=== PATIENT | female | born 1960 | race American Indian/Alaskan Native ===

== ENCOUNTER 2017-07-22 09:27 | Outpatient (CLI) | payer MEDICARE ==
[2017-07-22 10:19] LABS: Albumin 3.3 g/dL (3.9-5); Calcium 9.2 mg/dL (8.4-10.2)
== END 2017-07-22 09:28 | disposition home or self-care (01) ==
LOC: LAB 09:27
DX: N18.4 Chronic kidney disease, stage 4 (severe) (principal)
CPT/HCPCS: 36415; 80048; 82040; 84100

== ENCOUNTER 2017-11-09 11:00 | Outpatient (CLI) | payer MEDICARE | END 2017-11-09 11:01 | disposition home or self-care (01) | LOC: SLR 11:00 | PROVIDERS: ATTEND Internal Medicine Cardiovascular Disease | DX: G47.33 Obstructive sleep apnea (adult) (pediatric) (principal) | CPT/HCPCS: 95810 ==

== ENCOUNTER 2017-11-23 11:00 | Outpatient (CLI) | payer MEDICARE | END 2017-11-23 11:01 | disposition home or self-care (01) | LOC: SLR 11:00 | PROVIDERS: ATTEND Otolaryngology | DX: G47.33 Obstructive sleep apnea (adult) (pediatric) (principal) | CPT/HCPCS: 95811 ==

== ENCOUNTER 2018-02-04 08:24 | Day surgery (SDC) | payer MEDICARE ==
[~2018-02-04 08:24] MED LIST: ANCEF/STERILE WATER 2 GM/20 ML 2 GM/20 ML SYRINGE IV NR; NACL 0.9% 1000 ML 1,000 ML IV SCH
[2018-02-04 09:17] LABS: Basophils # (Auto) 0.1 K/mm3 (0.0-0.1); Basophils % (Auto) 0.9 % (0.0-1.8); Eosinophils # (Auto) 0.4 K/mm3 (0.0-0.4); Hematocrit 25.4 % (30.3-42.9); Hemoglobin 7.6 gm/dl (10.1-14.3); Lymphocytes # (Auto) 2.5 K/mm3 (1.2-5.4); Lymphocytes % (Auto) 28.5 % (13.4-35.0); Mean Corpuscular HGB Conc 30 % (30-34); Mean Corpuscular Hemoglobin 22 pg (28-32); Mean Corpuscular Volume 74 fl (79-97); Monocytes # (Auto) 0.9 K/mm3 (0.0-0.8); Monocytes % (Auto) 10.2 % (0.0-7.3); Platelet Count 325 K/mm3 (140-440); Red Blood Count 3.43 M/mm3 (3.65-5.03); Red Cell Distribution Width 16.1 % (13.2-15.2)
[2018-02-04] MEDS ORDERED: SUBLIMAZE IV PRN (09:33)
[2018-02-04] MEDS ORDERED: ZOFRAN IV PRN (09:33)
--- NOTE | 2018-02-04 09:34 | Anesthesia Day of Surgery ---
Anesthesia Day of Surgery - Day of Surgery Patient Examined: Yes Patient H&P Reviewed: Yes Patient is NPO: Yes
--- NOTE | 2018-02-04 09:36 | Anesthesia Consultation ---
Anesthesia Consult and Med Hx Date of service: 02/04/18 - Airway Anesthetic Teeth Evaluation: Good ROM Head & Neck: Adequate Mental/Hyoid Distance: Adequate Mallampati Class: Class III Intubation Access Assessment: Probably Good - Pulmonary Exam CTA: Yes - Cardiac Exam Cardiac Exam: RRR - Pre-Operative Health Status ASA Pre-Surgery Classification: ASA3 Proposed Anesthetic Plan: General - Cardiovascular System Hx Hypertension: Yes Hx Coronary Artery Disease: No Hx Heart Attack/AMI: No - Central Nervous System Hx Psychiatric Problems: Yes (depression) - Endocrine Hx Renal Disease: Yes Hx End Stage Renal Disease: Yes Hx Cirrhosis: No Hx Liver Disease: Yes (Hepatitis C) - Other Systems Hx Cancer: No Hx Obesity: Yes
[2018-02-04 09:59] LABS: Calcium 8.7 mg/dL (8.4-10.2)
[2018-02-04] MEDS ORDERED: PAPAVERINE ONE (10:03)
[2018-02-04] MEDS ORDERED: PROTAMINE SULFATE ONE (10:03)
[2018-02-04] MEDS ORDERED: MARCAINE 0.5% 30 ML INFILTRATI ONE (10:03)
[2018-02-04] MEDS ORDERED: NACL 0.9% 500 ML 500 ML ONE (10:04)
[2018-02-04] MEDS ORDERED: NITROGLYCERIN SYRINGE 0 ML ONE (10:04)
[2018-02-04] MEDS ORDERED: THROMBIN (BOVINE) TP ONE (10:04)
[2018-02-04] MEDS ORDERED: HEPARIN 10,000 UNITS/10 ML ONE (10:04)
[2018-02-04] MEDS ORDERED: GELFOAM TP ONE (10:04)
[2018-02-04] MEDS ORDERED: XYLOCAINE MPF 2% ONE (10:13)
[2018-02-04] MEDS ORDERED: SUBLIMAZE ONE (10:13)
[2018-02-04] MEDS ORDERED: DIPRIVAN 10 MG/ML IV ONE (10:13)
[2018-02-04] MEDS ORDERED: ZOFRAN ONE (10:15)
[2018-02-04] MEDS ORDERED: MARCAINE-EPI 0.5%-1:200,000 INFILTRATI ONE ×2 (12:42→12:43)
[2018-02-04] MEDS ORDERED: NACL 0.9% 250ML IRRIGATION ONE (12:42)
[2018-02-04] MEDS ORDERED: NACL 0.9% IR ONE (12:42)
[2018-02-04] MEDS ORDERED: HEPARIN 10,000 UNITS/10 ML IV ONE (12:42)
[2018-02-04] MEDS ORDERED: NITROGLYCERIN SYRINGE UD ONE (12:42)
--- NOTE | 2018-02-04 13:21 | Short Stay Summary ---
Short Stay Documentation Date of service: 02/04/18 - History H&P: obtained from office (short stay H&P) - Allergies and Medications Current Medications: Allergies No Known Allergies Allergy (Verified 01/27/18 16:41) Home Medications Medication Instructions Recorded Confirmed Last Taken Type Carvedilol [Coreg] 25 mg PO BID #60 tablet 01/31/18 02/04/18 02/03/18 Rx amLODIPine [Norvasc] 10 mg PO QDAY #30 tablet 01/31/18 02/04/18 02/03/18 Rx hydrALAZINE [Apresoline TAB] 50 mg PO Q8HR #180 tablet 01/31/18 02/04/18 Rx Allopurinol 100 mg PO DAILY 02/04/18 02/04/18 02/03/18 History Vortioxetine Hydrobromide 20 mg PO DAILY 02/04/18 02/04/18 02/03/18 History [Trintellix] buPROPion 450 mg PO DAILY 02/04/18 02/04/18 02/03/18 History Active Medications Fentanyl (Sublimaze) 50 mcg IV Q5MIN PRN PRN Reason: Pain , Severe (7-10) Cefazolin Sodium (Ancef/Sterile Water 2 Gm/20 Ml) 2 gm in 20 mls @ 80 mls/hr IV PREOP NR; Protocol Stop: 02/04/18 23:01 Sodium Chloride (Nacl 0.9% 1000 Ml) 1,000 mls @ 42 mls/hr IV DIRECT [place] Last Admin: 02/04/18 09:00 Dose: 42 mls/hr Ondansetron HCl (Zofran) 4 mg IV ONCE PRN PRN Reason: Nausea And Vomiting - Brief post op/procedure progress note Date of procedure: 02/04/18 Pre-op diagnosis: ESRD Post-op diagnosis: same Procedure: LUE antecubital vein to brachial artery fistula by direct anastomosis Anesthesia: GETA, regional (1/2% MArcaine w epi) Findings: Good thrill at end of case, easily palpable left radial pulse Surgeon: MARTHA NIÑO Estimated blood loss: minimal Pathology: none Condition: stable - Hospital course Hospital course: benign Short Stay Discharge Plan Activity: advance as tolerated Diet: advance as tolerated Follow up with: MARTHA NIÑO MD [Staff Physician] - 14 Days Prescriptions: HYDROcodone/APAP 5-325 [[place] 5/325] 1 each PO Q6HR PRN #30 tablet PRN Reason: Pain
--- NOTE | 2018-02-04 13:27 | Operative Report ---
Operative Report Operative Report: Date of procedure: 02/04/2018 Pre-operative diagnosis: End-stage renal failure Post-operative diagnosis: Same Procedure name(s): Antecubital vein to brachial artery fistula at the level of the elbow in the left upper extremity by direct anastomosis Surgeon: David Tate MD Storage Battery Inspector And Tester: None Anesthesia: Gen. and local supplementation using half percent Marcaine with epinephrine EBL: Less than 50 mL Operative indication: Patient is a 57 year old woman with a history of end- stage renal failure. The patient presents for establishment of long-term hemodialysis access. Findings: Excellent thrill in the arteriovenous fistula at the end of the procedure. Easily palpable radial pulse distal to the anastomosis. Procedure: The patient was placed on the table in the supine position. The left arm was prepped with ChloraPrep solution and draped in the usual sterile fashion. The ultrasound was used to identify the venous anatomy of the upper arm after a tourniquet had been placed in the upper arm using a rubber glove. The cephalic vein was very small around the area of the antecubital fossa. The basilic vein was also small in that area. The brachial artery size was adequate. There were several veins in the area of the brachial artery just below the elbow which appeared to be the origin of superficial veins. Under local anesthesia, an incision was made just below the elbow. Dissection was carried out to identify the brachial artery and adjacent vein. The vein gave rise to multiple veins in the area which appeared to go superficially. For the lateral side the vein coursed up into the subcutaneous tissue to what appeared to be an antebrachial vein. The vein heading proximally appeared to go toward the brachial vein. There also appeared to be some branches in the direction of the basilic vein. The brachial artery was surrounded with a vessel loop as was the proximal radial artery and the ulnar artery. The vein was freed up so that the only outflow was toward the antebrachial vein distally and toward the basilar vein proximally. The brachial artery and other arteries were occluded using vessel loops. A long arteriotomy was made on the proximal radial artery which went just onto the brachial artery for about a millimeter or 2. The corresponding incision was made on the vein of appropriate length. The vein was then sewn into place using running 7-0 Prolene. I put nitroglycerin side of vein to dwell while the anastomosis was being created. The 2 Nii catheter was used to relieve the spasm in the arteries prior to confucianist of flow. The anastomosis was occluded after flushing the vessels. Flow started into the vein with the development of an excellent thrill over the proximal forearm and the proximal upper arm. Meticulous hemostasis was obtained. Hemostasis was obtained. The wound was infiltrated with half percent Marcaine and epinephrine. Closure was done with 3-0 Vicryl and 4-0 subcuticular PDS. Dermabond was placed. The patient tolerated the procedure well. There was an easily palpable left radial pulse at the end of the procedure. There was a good thrill in the fistula at the end of the procedure. Sponge, needle, and instrument counts were reported as correct.
[2018-02-04 16:24] VITALS: BP 115/64
== END 2018-02-04 16:55 | disposition home or self-care (01) ==
LOC: OR 08:24
PROVIDERS: ATTEND Surgery Vascular Surgery
DX: I12.0 Hypertensive chronic kidney disease with stage 5 chronic kidney disease or end stage renal disease (principal); N18.6 End stage renal disease; M10.9 Gout, unspecified; E66.9 Obesity, unspecified; Z68.41 Body mass index [BMI] 40.0-44.9, adult; Z79.899 Other long term (current) drug therapy; Z99.2 Dependence on renal dialysis; Z87.891 Personal history of nicotine dependence; Z98.890 Other specified postprocedural states
CPT/HCPCS: 36415; 36821; 80048; 85025; A4649; C1757; J0690; J1644; J2405; J2704; J3010; J7030; J7040; J7050; J2440; J2720

== ENCOUNTER 2018-04-01 10:41 | Outpatient (CLI) | payer MEDICARE ==
--- NOTE | 2018-04-05 14:23 | Vascular Lab Report ---
Arteriovenous access duplex Reason for exam: Failing arterial venous access Comments: There is an arteriovenous fistula in the left upper extremity. It involves the brachial vein at the elbow and the nearby adjacent veins. There is flow into the brachial and axillary veins. Neither the basilic or cephalic vein appears to contain arterial flow. Flow velocities are as expected. Flow velocities in the brachial vein consistent with a volume flow over 1000 mL per minute. Impression: Patent brachial artery to brachial vein fistula in the left upper extremity. Majority outflow appears to be to the brachial vein. Neither the basilic or cephalic vein appeared to contain arterial flow.
== END 2018-04-01 10:42 | disposition home or self-care (01) ==
LOC: FLUORO 10:41 → VAS 10:41
PROVIDERS: ATTEND Surgery Vascular Surgery
DX: I77.0 Arteriovenous fistula, acquired (principal); I12.0 Hypertensive chronic kidney disease with stage 5 chronic kidney disease or end stage renal disease; N18.6 End stage renal disease; Z87.891 Personal history of nicotine dependence
CPT/HCPCS: 93990

== ENCOUNTER 2018-09-09 07:18 | Day surgery (SDC) | payer MEDICARE ==
[2018-09-09 08:43] LABS: Calcium 8.4 mg/dL (8.4-10.2)
[2018-09-09] MEDS ORDERED: HEPARIN/NS 5000 UNIT/500ML(CATH LAB) 500 ML IR ONE (09:57)
[2018-09-09] MEDS ORDERED: NACL 0.9% 250ML 250 ML ONE (09:59)
[2018-09-09] MEDS ORDERED: ANCEF/STERILE WATER 2 GM/20 ML 2 GM/20 ML SYRINGE IV ONE (10:07)
[2018-09-09] MEDS: SUBLIMAZE ONE ×2 (10:18→10:26)
[2018-09-09] MEDS: VERSED ONE ×2 (10:18→10:26)
[2018-09-09] MEDS: XYLOCAINE 1% 20 mL ONE ×2 (10:19→10:38)
[2018-09-09] MEDS ORDERED: VERSED ONE (10:34)
[2018-09-09] MEDS ORDERED: SUBLIMAZE ONE (10:34)
[2018-09-09] MEDS: HEPARIN 10,000 UNITS/10 ML ONE ×2 (10:35→10:36)
--- NOTE | 2018-09-09 10:57 | Operative Report ---
Operative Report Operative Report: Operative note: Date: 09/09/2018 Preoperative diagnosis: Renal failure Postoperative diagnosis: Same. Operation: Right internal jugular PermCath insertion Surgeon: Judith Quiroz. Asst.: None Anesthesia: Local with moderate sedation EBL: Minimal Indications: Renal failure requiring dialysis. She had infiltration during hemodialysis left arm AV fistula and to rest the permanent access placement of PermCath was necessary. Patient was discussed risks and benefits of procedure and chose to proceed, signed informed consent. Operative details: Patient was brought to the operating room and placed in supine position. Her right neck was prepped and draped in sterile fashion. Timeout was performed and all team members in agreement. Under ultrasound guidance right IJ was accessed with micropuncture needle, and exchanged to micropuncture catheter. J-wire was inserted under fluoroscopy guidance to SVC proximally. Small min was created with 11 blade around the wire and at the intended exit site for the catheter after infiltrating with 1% lidocaine. Intended tunnel for the catheter was also infiltrated with lidocaine. A clamp was used to dilate tract at the incisions. 23 cm PermCath catheter was tunneled toward the access site positioning the cuff just inside the exit incision. We dilated the access IJ site with 8 Ivorian and 12 Ivorian dilators followed by the peel-away sheath. Wire and the introducer were removed and catheter was inserted in the peel-away sheath which was removed keeping the catheter in place. Fluoroscopy pictures showed good positioning with smooth turn over the catheter. Ports were flushed with heparinized saline and showed good flow followed by full strength heparin lock with 1.8 mL in each port. Patient tolerated procedure well. The was transferred to PACU in stable condition.
--- NOTE | 2018-09-09 11:02 | Short Stay Summary ---
Short Stay Documentation Date of service: 09/09/18 - History H&P: obtained from office (updated in chart) Past Medical History: hypertension, renal failure Past Surgical History: Other (left arm AV fistula) - Allergies and Medications Current Medications: Allergies No Known Allergies Allergy (Verified 05/18/18 18:12) Home Medications Medication Instructions Recorded Confirmed Last Taken Type Carvedilol [Coreg] 25 mg PO BID #60 tablet 01/31/18 09/09/18 09/09/18 Rx 25mg amLODIPine [Norvasc] 10 mg PO QDAY #30 tablet 01/31/18 09/09/18 09/09/18 Rx 10mg Allopurinol 100 mg PO DAILY 02/04/18 09/09/18 09/09/18 History 100mg buPROPion 450 mg PO DAILY 02/04/18 09/09/18 09/09/18 History 450mg Losartan 50 mg PO DAILY PRN 05/20/18 09/09/18 09/09/18 History 50mg Pantoprazole [Protonix TAB] 40 mg PO QDAY 05/20/18 09/09/18 09/09/18 History 40mg Brimonidine/Timolol 0.2-0.5% 2 drops OU QHS 09/09/18 09/09/18 09/08/18 History [Combigan 0.2-0.5%] 2 Calcitriol [Rocaltrol] 0.25 mcg PO DAILY 09/09/18 09/09/18 09/08/18 History 0.25mcg Latanoprost 0.005% 2 drops OU QHS 09/09/18 09/09/18 09/08/18 History 2 cloNIDine [Catapres] 0.1 mg PO DAILY 09/09/18 09/09/18 09/09/18 History 0.1mg Active Medications Cefazolin Sodium (Ancef/Sterile Water 2 Gm/20 Ml) 2 gm in 20 mls @ 80 mls/hr IV PREOP NR; Protocol Stop: 09/09/18 23:00 Sodium Chloride (Nacl 0.9% 1000 Ml) 1,000 mls @ 42 mls/hr IV DIRECT [place] - Brief post op/procedure progress note Date of procedure: 09/09/18 Pre-op diagnosis: left arm AV fistula infiltration, end-stage renal disease Post-op diagnosis: same Procedure: Right IJ PermCath placement Anesthesia: MAC Findings: At the end of procedure tip of the catheter was at the SVC atrial junction. Surgeon: WESLEY DIAZ Estimated blood loss: minimal Condition: stable - Disposition Condition at discharge: Good Disposition: DC-01 TO HOME OR SELFCARE Short Stay Discharge Plan Diet: renal Wound: keep clean and dry Follow up with: NEIL PRO DO [Primary Care Provider] - 7 Days MARTHA NIÑO MD [Staff Physician] - 14 Days Prescriptions: HYDROcodone/APAP 5-325 [[place] 5/325] 1 each PO Q6HR PRN #14 tablet PRN Reason: Pain
[2018-09-09 11:38] VITALS: BP 161/76
== END 2018-09-09 12:32 | disposition home or self-care (01) ==
LOC: CATHLABREC 07:18
PROVIDERS: ATTEND Surgery Vascular Surgery
DX: I12.0 Hypertensive chronic kidney disease with stage 5 chronic kidney disease or end stage renal disease (principal); N18.6 End stage renal disease; K21.9 Gastro-esophageal reflux disease without esophagitis; F32.9 Major depressive disorder, single episode, unspecified; E66.9 Obesity, unspecified; Z68.37 Body mass index [BMI] 37.0-37.9, adult; Z99.2 Dependence on renal dialysis; Z79.899 Other long term (current) drug therapy; Z79.01 Long term (current) use of anticoagulants; Z87.891 Personal history of nicotine dependence; Z98.49 Cataract extraction status, unspecified eye; Z98.890 Other specified postprocedural states; Z86.2 Personal history of diseases of the blood and blood-forming organs and certain disorders involving the immune mechanism
CPT/HCPCS: 36415; 36558; 77001; 80048; 99156; 99157; C1750; J0690; J1644; J2250; J3010; J7050

== ENCOUNTER 2018-09-15 11:19 | Inpatient (IN) | payer MEDICARE ==
--- NOTE | 2018-09-15 11:30 | Emergency Department Report ---
Blank Doc - Documentation Documentation: This is a 58-year-old female that presents with missing dialysis x1 week. Den ies any symptoms. This initial assessment/diagnostic orders/clinical plan/treatment(s) is/are subject to change based on patient's health status, clinical progression and re- assessment by fellow clinical providers in the ED. Further treatment and workup at subsequent clinical providers discretion. Patient/guardians urged not to elope from the ED as their condition may be serious if not clinically assessed and managed. Initial orders include: 1- Patient sent to [facility] for further evaluation and treatment 2- labs
[2018-09-15 11:41] LABS: Basophils # (Auto) 0.1 K/mm3 (0.0-0.1); Eosinophils # (Auto) 0.3 K/mm3 (0.0-0.4); Eosinophils % (Auto) 3.4 % (0.0-4.3); Hematocrit 32.2 % (30.3-42.9); Lymphocytes # (Auto) 1.9 K/mm3 (1.2-5.4); Lymphocytes % (Auto) 25.3 % (13.4-35.0); Mean Corpuscular HGB Conc 31 % (30-34); Mean Corpuscular Volume 78 fl (79-97); Monocytes # (Auto) 0.7 K/mm3 (0.0-0.8); Monocytes % (Auto) 9.1 % (0.0-7.3); Platelet Count 319 K/mm3 (140-440); Red Blood Count 4.13 M/mm3 (3.65-5.03); Red Cell Distribution Width 16.5 % (13.2-15.2)
[2018-09-15 12:04] LABS: Alanine Aminotransferase 5 units/L (7-56); Albumin 3.9 g/dL (3.9-5); BUN/Creatinine Ratio 11; Blood Urea Nitrogen 71 mg/dL (7-17); Calcium 8.3 mg/dL (8.4-10.2); Hemolysis Index 2
[2018-09-15 12:05] LABS: Bilirubin,Direct < 0.2 mg/dL (0-0.2)
--- NOTE | 2018-09-15 12:19 | Emergency Department Report ---
ED General Adult HPI - General Chief complaint: Recheck/Abnormal Lab/Rx Stated complaint: DIALYSIS/POTASSIUM LEVEL Time Seen by Provider: 09/15/18 11:29 Source: patient Mode of arrival: Ambulatory Limitations: No Limitations - History of Present Illness Initial comments: Mrs. Barber is a very pleasant 4-year-old female with history of end-stage renal disease on dialysis. She has not had dialysis in one week since September 08 due to depression. She takes medication for depression. Mentally, she feels better at this time. She denies suicidal homicidal ideation. She was evaluated at dialysis Center today. She was sent to the ED for evaluation prior to resuming dialysis. Her general repairer is Dr. Perdomo. She denies chest pain. She denies Shortness of breath. She denies any physical complaints. She is in her normal state of health. -: week(s) (1) Severity scale (0 -10): 0 Improves with: none Worsens with: none Associated Symptoms: other (depression) - Related Data Home Medications Medication Instructions Recorded Confirmed Last Taken Allopurinol 100 mg PO DAILY 02/04/18 09/09/18 09/09/18 100mg buPROPion 450 mg PO DAILY 02/04/18 09/09/18 09/09/18 450mg Losartan 50 mg PO DAILY PRN 05/20/18 09/09/18 09/09/18 50mg Pantoprazole [Protonix TAB] 40 mg PO QDAY 05/20/18 09/09/18 09/09/18 40mg Brimonidine/Timolol 0.2-0.5% 2 drops OU QHS 09/09/18 09/09/18 09/08/18 [Combigan 0.2-0.5%] 2 Calcitriol [Rocaltrol] 0.25 mcg PO DAILY 09/09/18 09/09/18 09/08/18 0.25mcg Latanoprost 0.005% 2 drops OU QHS 09/09/18 09/09/18 09/08/18 2 cloNIDine [Catapres] 0.1 mg PO DAILY 09/09/18 09/09/18 09/09/18 0.1mg Previous Rx's Medication Instructions Recorded Last Taken Type Carvedilol [Coreg] 25 mg PO BID #60 tablet 01/31/18 09/09/18 Rx 25mg amLODIPine [Norvasc] 10 mg PO QDAY #30 tablet 01/31/18 09/09/18 Rx 10mg HYDROcodone/APAP 5-325 [[place] 1 each PO Q6HR PRN #14 tablet 09/09/18 Unknown Rx 5/325] Allergies Allergy/AdvReac Type Severity Reaction Status Date / Time No Known Allergies Allergy Verified 05/18/18 18:12 ED Review of Systems ROS: Stated complaint: DIALYSIS/POTASSIUM LEVEL Other details as noted in HPI Comment: All other systems reviewed and negative Constitutional: denies: fever, malaise Cardiovascular: denies: chest pain ED Past Medical Hx - Past Medical History Hx Hypertension: Yes (started losartan today; BP 90s/60s initially in preop) Hx Heart Attack/AMI: No Hx Liver Disease: Yes (HCV) Hx Renal Disease: Yes (HD T,,Wednesday) Hx Seizures: No Hx Asthma: No Additional medical history: depression - Surgical History Additional Surgical History: JAYY graft, Rt Vascath - Social History Smoking Status: Never Smoker Substance Use Type: None - Medications Home Medications: Home Medications Medication Instructions Recorded Confirmed Last Taken Type Carvedilol [Coreg] 25 mg PO BID #60 tablet 01/31/18 09/09/18 09/09/18 Rx 25mg amLODIPine [Norvasc] 10 mg PO QDAY #30 tablet 01/31/18 09/09/18 09/09/18 Rx 10mg Allopurinol 100 mg PO DAILY 02/04/18 09/09/18 09/09/18 History 100mg buPROPion 450 mg PO DAILY 02/04/18 09/09/18 09/09/18 History 450mg Losartan 50 mg PO DAILY PRN 05/20/18 09/09/18 09/09/18 History 50mg Pantoprazole [Protonix TAB] 40 mg PO QDAY 05/20/18 09/09/18 09/09/18 History 40mg Brimonidine/Timolol 0.2-0.5% 2 drops OU QHS 09/09/18 09/09/18 09/08/18 History [Combigan 0.2-0.5%] 2 Calcitriol [Rocaltrol] 0.25 mcg PO DAILY 09/09/18 09/09/18 09/08/18 History 0.25mcg HYDROcodone/APAP 5-325 [[place] 1 each PO Q6HR PRN #14 tablet 09/09/18 Unknown Rx 5/325] Latanoprost 0.005% 2 drops OU QHS 09/09/18 09/09/18 09/08/18 History 2 cloNIDine [Catapres] 0.1 mg PO DAILY 09/09/18 09/09/18 09/09/18 History 0.1mg ED Physical Exam - General Limitations: No Limitations General appearance: alert, in no apparent distress - Head Head exam: Present: atraumatic, normocephalic - Eye Eye exam: Present: normal appearance - ENT ENT exam: Present: mucous membranes moist - Neck Neck exam: Present: normal inspection, full ROM - Respiratory Respiratory exam: Present: normal lung sounds bilaterally. Absent: respiratory distress, wheezes, rales, rhonchi - Cardiovascular Cardiovascular Exam: Present: regular rate, normal rhythm, normal heart sounds, other (right chest vascath in place). Absent: systolic murmur, diastolic m urmur, rubs, gallop - GI/Abdominal GI/Abdominal exam: Present: soft, normal bowel sounds. Absent: distended, tenderness, guarding, rebound - Extremities Exam Extremities exam: Present: normal inspection - Back Exam Back exam: Present: normal inspection - Neurological Exam Neurological exam: Present: alert, oriented X3 - Psychiatric Psychiatric exam: Present: normal affect, normal mood - Skin Skin exam: Present: warm, dry, intact, normal color. Absent: rash ED Course Vital Signs 09/15/18 09/15/18 11:29 12:31 Temperature 98 F Pulse Rate 96 H 83 Respiratory 18 17 Rate Blood Pressure 190/94 Blood Pressure 133/78 [Right] O2 Sat by Pulse 97 100 Oximetry ED Medical Decision Making - Lab Data Result diagrams: 09/15/18 11:32 09/15/18 11:32 Laboratory Results - last 24 hr 09/15/18 09/15/18 11:32 11:32 WBC 7.6 RBC 4.13 Hgb 10.0 L Hct 32.2 MCV 78 L MCH 24 L MCHC 31 RDW 16.5 H Plt Count 319 Lymph % (Auto) 25.3 Bland % (Auto) 9.1 H Eos % (Auto) 3.4 Baso % (Auto) 1.0 Lymph # 1.9 Bland # 0.7 Eos # 0.3 Baso # 0.1 Seg Neutrophils % 61.2 Seg Neutrophils # 4.6 Sodium 133 L Potassium 5.9 H Chloride 106.2 Carbon Dioxide 17 L Anion Gap 16 BUN 71 H Creatinine 6.7 H Estimated GFR 8 BUN/Creatinine Ratio 11 Glucose 107 H Calcium 8.3 L Total Bilirubin 0.30 Direct Bilirubin < 0.2 AST 15 ALT 5 L Alkaline Phosphatase 76 Total Protein 7.1 Albumin 3.9 Albumin/Globulin Ratio 1.2 - EKG Data 09/15/18 12:50 EKG obtained 1245 Rate 80 beats a minute normal sinus rhythm normal axis normal intervals no signs of hyperkalemia normal amplitude T waves normal QT interval - Medical Decision Making Mrs. Barber has hx of ESRD on HD. She was sent for evaluation to ED. Notable lab potassium 5.9. She is symptom free. Elevated BP noted, I spoke with Nephrology specialist [employer] Moon who arranged urgent dialysis orders. Dr. Howell hospitalist will admit for further monitoring and treatment. Critical care attestation.: If time is entered above; I have spent that time in minutes in the direct care of this critically ill patient, excluding procedure time. ED Disposition Clinical Impression: ESRD (end stage renal disease), Missed dialysis, Hypertensive urgency Disposition: 09 OP ADMIT IP TO THIS HOSP Is pt being admited?: Yes Does the pt Need Aspirin: No Condition: Stable
[2018-09-15 13:11] LABS: Bilirubin,Urine NEG (Negative); Blood,Urine NEG (Negative); Color,Urine Yellow (Yellow); Mucus,Urine FEW /HPF; Urobilinogen,Urine < 2.0 mg/dL (<2.0)
[2018-09-15 13:12] LABS: Protein,Urine >500 mg/dL (Negative)
[2018-09-15] MEDS ORDERED: ZOFRAN IV PRN (13:26)
[2018-09-15] MEDS ORDERED: PROVENTIL IH PRN (13:26)
[2018-09-15] MEDS ORDERED: SODIUM CHLORIDE FLUSH SYRINGE 10 ML IV PRN (13:26)
[2018-09-15] MEDS ORDERED: TYLENOL PO PRN (13:26)
[2018-09-15] MEDS ORDERED: NORCO 5/325 PO PRN (13:28)
[2018-09-15] MEDS ORDERED: NON-FORMULARY (Losartan 50 MG) PO PRN (13:28)
[2018-09-15] MEDS ORDERED: NACL 0.9% 100 ML IV PRN ×2 (13:31→13:38)
--- NOTE | 2018-09-15 13:32 | History and Physical Report ---
History of Present Illness Chief complaint: I need dialysis History of present illness: 58 YO Female with ESRD on HD(T,R,Sa), HTN, Depression, HCV presents to ED for evaluation. Pt states that she has not undergone her scheduled for the past 1 week. Pt has been noncompliant with dialysis due to feeling depressed. Pt presented to her dialysis center for routine dialysis, and was instructed to seek further care at [facility]. Pt seen and evaluated in ED and found to have ESRD, Acidosis and Fluid Overload. Nephrology consulted for urgent dialysis. Pt denies fever, chills, CP, Palpitations, NVD, Trauma, SI/HI, BRBPR, Unintentional Weight loss, night sweats, or recent ill contacts. Pt admitted to medical floor. Prior admission on 01/28/18 reviewed. All listed medication reconciled at time of admission. Past History Past Medical History: ESRD, hepatitis, hypertension Past Surgical History: Other (Dialysis access, permacath) Social history: . denies: smoking, alcohol abuse, prescription drug abuse Family history: hypertension Medications and Allergies Allergies Allergy/AdvReac Type Severity Reaction Status Date / Time No Known Allergies Allergy Verified 05/18/18 18:12 Home Medications Medication Instructions Recorded Confirmed Last Taken Type Carvedilol [Coreg] 25 mg PO BID #60 tablet 01/31/18 09/09/18 09/09/18 Rx 25mg amLODIPine [Norvasc] 10 mg PO QDAY #30 tablet 01/31/18 09/09/18 09/09/18 Rx 10mg Allopurinol 100 mg PO DAILY 02/04/18 09/09/18 09/09/18 History 100mg buPROPion 450 mg PO DAILY 02/04/18 09/09/18 09/09/18 History 450mg Losartan 50 mg PO DAILY PRN 05/20/18 09/09/18 09/09/18 History 50mg Pantoprazole [Protonix TAB] 40 mg PO QDAY 05/20/18 09/09/18 09/09/18 History 40mg Brimonidine/Timolol 0.2-0.5% 2 drops OU QHS 09/09/18 09/09/18 09/08/18 History [Combigan 0.2-0.5%] 2 Calcitriol [Rocaltrol] 0.25 mcg PO DAILY 03/09/09/18 09/08/18 History 0.25mcg HYDROcodone/APAP 5-325 [[place] 1 each PO Q6HR PRN #14 tablet 09/09/18 Unknown Rx 5/325] Latanoprost 0.005% 2 drops OU QHS 09/09/18 09/09/18 09/08/18 History 2 cloNIDine [Catapres] 0.1 mg PO DAILY 09/09/18 09/09/18 09/09/18 History 0.1mg Active Meds: Active Medications Acetaminophen (Tylenol) 650 mg PO Q4H PRN PRN Reason: Pain MILD(1-3)/Fever >100.5/DERAS Albuterol (Proventil) 2.5 mg IH Q4HRT PRN PRN Reason: Shortness Of Breath Ondansetron HCl (Zofran) 4 mg IV Q8H PRN PRN Reason: Nausea And Vomiting Sodium Chloride (Sodium Chloride Flush Syringe 10 Ml) 10 ml IV BID [place] Sodium Chloride (Sodium Chloride Flush Syringe 10 Ml) 10 ml IV PRN PRN PRN Reason: LINE FLUSH Review of Systems Constitutional: no weight loss, no weight gain, no fever, no chills Ears, nose, mouth and throat: no ear pain, no ear discharge, no tinnitis, no decreased hearing, no nose pain, no nasal congestion Breasts: no change in shape, no swelling, no mass Cardiovascular: no chest pain, no orthopnea, no palpitations, no rapid/irregular heart beat, no edema, no syncope Respiratory: no cough, no cough with sputum, no excessive sputum, no hemoptysis, no shortness of breath Gastrointestinal: no nausea, no vomiting, no diarrhea, no constipation, no change in bowel habits Genitourinary Female: no pelvic pain, no flank pain, no menorrhagia, no dysuria, no urinary frequency, no urgency, no stress incontinence Rectal: no pain, no incontinence, no bleeding Musculoskeletal: no neck stiffness, no neck pain, no shooting arm pain, no arm numbness/tingling, no low back pain, no shooting leg pain Integumentary: no rash, no pruritis, no redness, no sores, no wounds, no jaundice Neurological: no transient paralysis, no paralysis, no weakness, no parathesias, no numbness, no tingling, no seizures Psychiatric: no anxiety, no memory loss, no change in sleep habits, no sleep disturbances, no insomnia, no hypersomnia, no change in appetite Endocrine: no cold intolerance, no heat intolerance, no polyphagia, no excessive thirst, no polydipsia, no polyuria, no nocturia Hematologic/Lymphatic: no easy bruising, no easy bleeding, no lymphadenopathy, no lymphedema Allergic/Immunologic: no urticaria, no allergic rhinitis, no wheezing, no persistent infections, no anaphylaxis Exam - Constitutional Vitals: Temp Pulse Resp BP Pulse Ox 98 F 83 17 133/78 100 09/15/18 11:29 09/15/18 12:31 09/15/18 12:31 09/15/18 12:31 09/15/18 12:31 General appearance: Present: mild distress, obese - EENT Eyes: Present: PERRL ENT: hearing intact, clear oral mucosa - Neck Neck: Present: supple, normal ROM - Respiratory Respiratory effort: normal Respiratory: bilateral: CTA - Cardiovascular Heart Sounds: Present: S1 & S2. Absent: rub, click - Extremities Extremities: pulses symmetrical, No edema Peripheral Pulses: within normal limits - Abdominal General gastrointestinal: Present: soft, non-tender, non-distended, normal bowel sounds Female genitourinary: Present: normal - Integumentary Integumentary: Present: clear, warm, dry - Musculoskeletal Musculoskeletal: gait normal, strength equal bilaterally - Psychiatric Psychiatric: appropriate mood/affect, intact judgment & insight - Neurologic Neurologic: CNII-XII intact, moves all extremities Results - Labs CBC & Chem 7: 09/15/18 11:32 09/15/18 11:32 Labs: Abnormal lab results 09/15/18 09/15/18 Range/Units 11:32 11:32 Hgb 10.0 L (10.1-14.3) gm/dl MCV 78 L (79-97) fl MCH 24 L (28-32) pg RDW 16.5 H (13.2-15.2) % Real % (Auto) 9.1 H (0.0-7.3) % Sodium 133 L (137-145) mmol/L Potassium 5.9 H (3.6-5.0) mmol/L Carbon Dioxide 17 L (22-30) mmol/L BUN 71 H (7-17) mg/dL Creatinine 6.7 H (0.7-1.2) mg/dL Glucose 107 H (65-100) mg/dL Calcium 8.3 L (8.4-10.2) mg/dL ALT 5 L (7-56) units/L Assessment and Plan - Patient Problems (1) ESRD (end stage renal disease) Current Visit: Yes Status: Acute Plan to address problem: Nephrology consulted in ED, dialysis as per renal team, strict I/O, daily weight, monitor uop q shift, avoid nephrotoxic agents. (2) Acidosis Current Visit: Yes Status: Acute Plan to address problem: urgent dialysis, nephrology consulted, repeat bmp. (3) Hypertensive urgency Current Visit: Yes Status: Acute Plan to address problem: Monitor BP q shift, continue prehospital mediation, IV hydralazine prn for systolic above 160. (4) DVT prophylaxis Current Visit: Yes Status: Acute Plan to address problem: SCD to BLE while in bed, Heparin with dialysis as per renal team. Pt ambulating independently. ambulate in hallway qid
[2018-09-15] MEDS ORDERED: HEPARIN IV PRN (13:38)
--- NOTE | 2018-09-15 15:55 | Consultation ---
History of Present Illness - Reason for Consult Consult date: 09/15/18 end stage renal disease Requesting physician: RAYRAY RAZA - History of Present Illness Mrs. Barber is a very pleasant 4-year-old female with history of end-stage renal disease on dialysis. She has not had dialysis in one week since September 08 due to depression. She takes medication for depression. Mentally, she feels better at this time. She denies suicidal homicidal ideation. She was evaluated at dialysis Center today. She was sent to the ED for evaluation prior to resuming dialysis. She denies chest pain. She denies Shortness of breath. She denies any physical complaints. She is in her normal state of health. Patient noted to be hyperkalemic and hypertensive and therefore admitted for further management. Dialysis has been initiated which she is tolerating well Past History Past Medical History: dialysis, hypertension, other (depression) Past Surgical History: Other (history of creation of AV fistula and PermCath placement) Social history: no significant social history Family history: no significant family history Medications and Allergies Allergies Allergy/AdvReac Type Severity Reaction Status Date / Time No Known Allergies Allergy Verified 05/18/18 18:12 Home Medications Medication Instructions Recorded Confirmed Last Taken Type Carvedilol [Coreg] 25 mg PO BID #60 tablet 01/31/18 09/09/18 09/09/18 Rx 25mg amLODIPine [Norvasc] 10 mg PO QDAY #30 tablet 01/31/18 09/09/18 09/09/18 Rx 10mg Allopurinol 100 mg PO DAILY 02/04/18 09/09/18 09/09/18 History 100mg buPROPion 450 mg PO DAILY 02/04/18 09/09/18 09/09/18 History 450mg Losartan 50 mg PO DAILY PRN 05/20/18 09/09/18 09/09/18 History 50mg Pantoprazole [Protonix TAB] 40 mg PO QDAY 05/20/18 09/09/18 09/09/18 History 40mg Brimonidine/Timolol 0.2-0.5% 2 drops OU QHS 09/09/18 09/09/18 09/08/18 History [Combigan 0.2-0.5%] 2 Calcitriol [Rocaltrol] 0.25 mcg PO DAILY 09/09/18 09/09/18 09/08/18 History 0.25mcg HYDROcodone/APAP 5-325 [[place] 1 each PO Q6HR PRN #14 tablet 09/09/18 Unknown Rx 5/325] Latanoprost 0.005% 2 drops OU QHS 09/09/18 09/09/18 09/08/18 History 2 cloNIDine [Catapres] 0.1 mg PO DAILY 09/09/18 09/09/18 09/09/18 History 0.1mg Active Meds: Active Medications Acetaminophen (Tylenol) 650 mg PO Q4H PRN PRN Reason: Pain MILD(1-3)/Fever >100.5/DERAS Acetaminophen/Hydrocodone Bitart ([place] 5/325) 1 each PO Q6HR PRN PRN Reason: Pain Albuterol (Proventil) 2.5 mg IH Q4HRT PRN PRN Reason: Shortness Of Breath Allopurinol (Zyloprim) 100 mg PO DAILY [facility] Amlodipine Besylate (Norvasc) 10 mg PO QDAY [facility] Brimonidine/Timolol (Combigan 0.2-0.5%) 2 drops OU QHS [facility] Bupropion HCl (Wellbutrin Xl) 450 mg PO DAILY [facility] Calcitriol (Rocaltrol) 0.25 mcg PO DAILY [facility] Carvedilol (Coreg) 25 mg PO BID [facility] Clonidine HCl (Catapres) 0.1 mg PO DAILY [facility] Heparin Sodium (Porcine) (Heparin) 5,000 unit IV VANESSA PRN PRN Reason: hemodialysis Sodium Chloride (Nacl 0.9%) 100 mls @ 999 mls/hr IV VANESSA PRN PRN Reason: Hypotension Sodium Chloride (Nacl 0.9%) 100 mls @ 999 mls/hr IV VANESSA PRN PRN Reason: Hypotension Latanoprost (Latanoprost 0.005%) 2 drops OU QHS [facility] Losartan Potassium (Cozaar) 50 mg PO QDAY [facility] Ondansetron HCl (Zofran) 4 mg IV Q8H PRN PRN Reason: Nausea And Vomiting Pantoprazole Sodium (Protonix) 40 mg PO QDAY [facility] Sodium Chloride (Sodium Chloride Flush Syringe 10 Ml) 10 ml IV BID [facility] Sodium Chloride (Sodium Chloride Flush Syringe 10 Ml) 10 ml IV PRN PRN PRN Reason: LINE FLUSH Review of Systems All systems: negative (except as noted above) Exam - Vital Signs Vital signs: Vital Signs Temp Pulse Resp BP Pulse Ox 98 F 96 H 18 190/94 97 09/15/18 11:29 09/15/18 11:29 09/15/18 11:29 09/15/18 11:29 09/15/18 11:29 - General Appearance General appearance: well-developed, well-nourished, appears stated age EENT: PERRL, mucous membranes moist Neck: Present: neck supple, trachea midline, Other (right IJ PermCath in place). Absent: JVD/HJR, Masses Respiratory: Clear to Ascultation Heart: regular, normal heart rate, S1S2, no murmurs Gastrointestinal: Present: normal, normoactive bowel sounds Integumentary: other (AV fistula left upper arm. Good bruit and thrill) Results - Lab Results 09/15/18 11:32 09/15/18 11:32 Most recent lab results Calcium 8.3 mg/dL (8.4-10.2) L 09/15/18 11:32 Assessment and Plan Impression * End-stage renal disease on maintenance hemodialysis * Hypokalemia * Uncontrolled hypertension * Noncompliance * Depression * Anemia secondary to ESRD * Malfunctioning AV access Recommendations * Patient is currently undergoing hemodialysis * Hopefully her hyperkalemia and blood pressure will be better post dialysis * Adjust diet and meds were ESRD state * She currently has a PermCath which is being used for dialysis * She has had some malfunction of her AV access for which she is being followed by vascular surgery * Binders with meals * Procrit per protocol * Thank you very much for the consultation. Shall follow along with you
[2018-09-15] MEDS ORDERED: APRESOLINE IV PRN (16:59)
[2018-09-15] MEDS ORDERED: LATANOPROST 0.005% OU SCH (22:00)
[2018-09-15] MEDS ORDERED: COMBIGAN 0.2-0.5% OU SCH (22:00)
[2018-09-15] MEDS: SODIUM CHLORIDE FLUSH SYRINGE 10 ML IV SCH (22:20)
[2018-09-15] MEDS: COREG PO SCH (22:20)
[2018-09-16 06:05] LABS: Calcium 7.7 mg/dL (8.4-10.2)
[2018-09-16] MEDS: COREG PO SCH (09:51)
[2018-09-16] MEDS: SODIUM CHLORIDE FLUSH SYRINGE 10 ML IV SCH (09:52)
[2018-09-16] MEDS ORDERED: ROCALTROL PO SCH (10:00)
[2018-09-16] MEDS ORDERED: COZAAR PO SCH (10:00)
[2018-09-16] MEDS ORDERED: WELLBUTRIN XL PO SCH (10:00)
[2018-09-16] MEDS ORDERED: ZYLOPRIM PO SCH (10:00)
[2018-09-16] MEDS ORDERED: PROTONIX PO SCH (10:00)
[2018-09-16] MEDS ORDERED: BUPROPION 450 MG PO SCH (10:00)
[2018-09-16] MEDS ORDERED: NORVASC PO SCH (10:00)
[2018-09-16] MEDS ORDERED: CATAPRES PO SCH (10:00)
--- NOTE | 2018-09-16 17:41 | Discharge Summary ---
Providers - Providers Date of Admission: 09/15/18 13:26 Date of discharge: 09/16/18 Attending physician: PAN LEE Primary care physician: [facility] Hospitalization Condition: Stable Hospital course: (1) ESRD (end stage renal disease) Current Visit: Yes Status: Acute Plan to address problem: HD done emergently. Counselled about being compliant (2) Acidosis Current Visit: Yes Status: Acute Plan to address problem: Improved (3) Hypertensive urgency Current Visit: Yes Status: Acute Plan to address problem: Improved Noncompliance Disposition: - TO HOME OR SELFCARE Core Measure Documentation - Palliative Care Palliative Care/ Comfort Measures: Not Applicable - Core Measures Any of the following diagnoses?: none Exam - Constitutional Vitals: Temp Pulse Resp BP Pulse Ox 97.9 F 78 18 97/53 98 09/16/18 11:34 09/16/18 11:34 09/16/18 11:34 09/16/18 11:34 09/16/18 11:34 General appearance: Present: no acute distress, well-nourished - EENT Eyes: Present: PERRL ENT: hearing intact, clear oral mucosa - Neck Neck: Present: supple, normal ROM - Respiratory Respiratory effort: normal Respiratory: bilateral: CTA - Cardiovascular Heart rate: 78 Rhythm: regular (78) Heart Sounds: Present: S1 & S2. Absent: rub, click - Extremities Extremities: pulses symmetrical, No edema Peripheral Pulses: within normal limits - Abdominal General gastrointestinal: Present: soft, non-tender, non-distended, normal bowel sounds Female genitourinary: Present: normal - Rectal Rectal Exam: deferred - Integumentary Integumentary: Present: clear, warm, dry - Musculoskeletal Musculoskeletal: gait normal, strength equal bilaterally - Psychiatric Psychiatric: appropriate mood/affect, intact judgment & insight - Neurologic Neurologic: CNII-XII intact, moves all extremities - Allied Health Allied health notes reviewed: nursing, case management Plan Activity: no restrictions Diet: renal Follow up with: PRIMARY CAREMD [Referring] - 7 Days
[2018-09-16 17:59] VITALS: BP 115/71
== END 2018-09-16 18:40 | disposition home or self-care (01) | DRG 314 ==
LOC: ED 11:19 → 3A 13:26
PROVIDERS: ADMIT Internal Medicine; ATTEND Internal Medicine
PROC: 5A1D70Z Performance of Urinary Filtration, Intermittent, Less than 6 Hours Per Day (ICD-10-PCS; principal; 2018-09-15)
DX: T82.318A Breakdown (mechanical) of other vascular grafts, initial encounter (principal); N18.6 End stage renal disease; E87.2 Acidosis; I12.0 Hypertensive chronic kidney disease with stage 5 chronic kidney disease or end stage renal disease; E87.70 Fluid overload, unspecified; Y83.8 Other surgical procedures as the cause of abnormal reaction of the patient, or of later complication, without mention of misadventure at the time of the procedure; I16.0 Hypertensive urgency; E87.6 Hypokalemia; D63.1 Anemia in chronic kidney disease; F32.9 Major depressive disorder, single episode, unspecified; Z99.2 Dependence on renal dialysis; Z91.19 Patient's noncompliance with other medical treatment and regimen; Z79.899 Other long term (current) drug therapy; Y92.89 Other specified places as the place of occurrence of the external cause; Z82.49 Family history of ischemic heart disease and other diseases of the circulatory system
CPT/HCPCS: 36415; 80048; 80076; 81001; 85025; 93005; 93010; 94760; G0378; J1644

== ENCOUNTER 2018-12-09 09:30 | Day surgery (SDC) | payer MEDICARE ==
[2018-12-09 09:01] LABS: Basophils # (Auto) 0.1 K/mm3 (0.0-0.1); Basophils % (Auto) 1.6 % (0.0-1.8); Eosinophils # (Auto) 0.2 K/mm3 (0.0-0.4); Eosinophils % (Auto) 3.8 % (0.0-4.3); Hematocrit 34.5 % (30.3-42.9); Hemoglobin 10.6 gm/dl (10.1-14.3); Lymphocytes # (Auto) 1.7 K/mm3 (1.2-5.4); Lymphocytes % (Auto) 31.2 % (13.4-35.0); Mean Corpuscular HGB Conc 31 % (30-34); Mean Corpuscular Volume 79 fl (79-97); Monocytes # (Auto) 0.4 K/mm3 (0.0-0.8); Platelet Count 325 K/mm3 (140-440); Red Blood Count 4.36 M/mm3 (3.65-5.03)
[2018-12-09 09:23] LABS: INR 1.75 (0.87-1.13)
--- NOTE | 2018-12-09 09:27 | Anesthesia Day of Surgery ---
Anesthesia Day of Surgery - Day of Surgery Patient Examined: Yes Patient H&P Reviewed: Yes Patient is NPO: Yes
--- NOTE | 2018-12-09 09:27 | Anesthesia Consultation ---
Anesthesia Consult and Med Hx Date of service: 12/09/18 - Airway Anesthetic Teeth Evaluation: Good ROM Head & Neck: Adequate Mental/Hyoid Distance: Adequate Mallampati Class: Class II Intubation Access Assessment: Good - Pulmonary Exam CTA: Yes - Cardiac Exam Cardiac Exam: RRR - Pre-Operative Health Status ASA Pre-Surgery Classification: ASA3 Proposed Anesthetic Plan: General (ESRD, HTN, Gout, DVT for GA, missed dialysis yesterday but Kis 4.8 today ) - Pulmonary Hx Smoking: Yes (STOPPED 2015) Hx Asthma: No Hx Respiratory Symptoms: No (SpO2 94% on RA in preop) COPD: No Hx Pneumonia: No Hx Sleep Apnea: Yes (DX SLEEP APNEA WITH CPAP USE.) - Cardiovascular System Hx Hypertension: Yes (X 30 YRS) Hx Heart Attack/AMI: No Hx Percutaneous Transluminal Coronary Angioplasty (PTCA): No Hx Cardia Arrhythmia: No - Central Nervous System Hx Seizures: No CVA: No Hx Psychiatric Problems: Yes (depression) - Gastrointestinal Hx Gastroesophageal Reflux Disease: Yes (took protonix this morning, asymptomatic now) - Endocrine Hx Renal Disease: Yes (HD T,,Wednesday) Hx End Stage Renal Disease: Yes (DIALYSIS ON WED,,WED) Hx Liver Disease: Yes (HCV) Hx Insulin Dependent Diabetes: No Hx Non-Insulin Dependent Diabetes: No Hx Thyroid Disease: No - Hematic Hx Anemia: Yes - Other Systems Hx Cancer: No Hx Obesity: Yes
[~2018-12-09 09:30] MED LIST changes: +DIPRIVAN 10 MG/ML IV ONE; +GELFOAM TP ONE; +HEPARIN 10,000 UNITS/10 ML ONE; +MARCAINE-EPI 0.5%-1:200,000 INFILTRATI ONE; +NACL 0.9% 500 ML 500 ML ONE; +NACL BACTERIOSTATIC INFILTRATI ONE; +NACL P/F VIAL (10 ML) 10 ML ONE; +NITROGLYCERIN SYRINGE 0 ML ONE; +PAPAVERINE ONE; +PROTAMINE SULFATE ONE; +RIFADIN ONE; +SODIUM BICARBONATE ONE; +SUBLIMAZE IV PRN; +SUBLIMAZE ONE; +XYLOCAINE 1%/ EPI 1:100,000 INFILTRATI ONE; +ZOFRAN IV PRN
[2018-12-09] MEDS ORDERED: VERSED ONE (10:14)
[2018-12-09] MEDS ORDERED: HEPARIN 10,000 UNITS/10 ML IV ONE (10:45)
[2018-12-09] MEDS ORDERED: NACL 0.9% IR ONE (10:45)
[2018-12-09] MEDS ORDERED: MARCAINE-EPI 0.5%-1:200,000 INFILTRATI ONE (10:45)
--- NOTE | 2018-12-09 11:49 | Short Stay Summary ---
Short Stay Documentation Date of service: 12/09/18 - History H&P: obtained from office - Allergies and Medications Current Medications: Allergies No Known Allergies Allergy (Verified 05/18/18 18:12) Home Medications Medication Instructions Recorded Confirmed Last Taken Type Allopurinol [Zyloprim] 100 mg PO DAILY #30 tablet 10/29/18 12/09/18 12/09/18 06:00 Rx Carvedilol [Coreg] 25 mg PO BID #60 tablet 10/29/18 12/09/18 12/09/18 06:00 Rx Latanoprost 0.005% 2 drops OU QHS #1 bottle 10/29/18 12/09/18 12/08/18 21:00 Rx Pantoprazole [Protonix TAB] 40 mg PO QDAY #30 tablet 10/29/18 12/09/18 12/09/18 06:00 Rx Polyethylene Glycol 3350 [Miralax 17 gm PO QDAY PRN #15 powd.pack 10/29/18 12/01/18 Unknown Rx 3350] amLODIPine [Norvasc] 10 mg PO QDAY #30 tablet 10/29/18 12/09/18 12/09/18 06:00 Rx Valsartan [Diovan] 100 mg PO DAILY 12/01/18 12/09/18 12/09/18 06:00 History Warfarin Sodium [Coumadin] 5 mg PO DAILY 12/01/18 12/09/18 12/08/18 20:00 History buPROPion 300 mg PO DAILY 12/01/18 12/09/18 12/09/18 06:00 History Active Medications Fentanyl (Sublimaze) 50 mcg IV Q5MIN PRN PRN Reason: Pain , Severe (7-10) Stop: 12/09/18 16:00 Sodium Chloride (Nacl 0.9% 1000 Ml) 1,000 mls @ 42 mls/hr IV DIRECT [place] Last Admin: 12/09/18 09:28 Dose: 42 mls/hr Documented by: Cefazolin Sodium (Ancef/Sterile Water 2 Gm/20 Ml) 2 gm in 20 mls @ 80 mls/hr IV PREOP NR; Protocol Stop: 12/09/18 20:00 Ondansetron HCl (Zofran) 4 mg IV ONCE PRN PRN Reason: Nausea And Vomiting Stop: 12/09/18 16:00 - Brief post op/procedure progress note Date of procedure: 12/09/18 Pre-op diagnosis: failing AV fistula, left upper extremity Post-op diagnosis: same Procedure: Open revision of left upper extremity arterial venous fistula with ipsilateral cephalic vein Anesthesia: GETA, local Findings: Good thrill at the end of the procedure. Surgeon: MARTHA NIÑO Welder Assistant: OTTO BOJORQUEZ Estimated blood loss: 50-100ml Pathology: list (pseudoaneurysm) Specimen disposition: to lab Condition: stable - Hospital course Hospital course: Benign - Disposition Condition at discharge: Good Disposition: DC- TO HOME OR SELFCARE Short Stay Discharge Plan Activity: advance as tolerated Diet: advance as tolerated Wound: per your surgeon's advice Follow up with: MARTHA NIÑO MD [Staff Physician] - 14 Days Prescriptions: HYDROcodone/APAP 5-325 [[place] 5/325] 1 each PO Q6HR PRN #30 tablet PRN Reason: Pain
[2018-12-09 13:14] VITALS: BP 151/82
--- NOTE | 2018-12-21 16:15 | Operative Report ---
Operative Report Operative Report: Revision of Left Upper Extremity Arteriovenous Fistula Date of procedure: 12/09/2018 Preoperative diagnosis: Failing arteriovenous fistula left upper extremity Postoperative diagnosis: Same Procedure: Open revision of left upper extremity arteriovenous fistula Surgeon: David Tate M.D. Records Management Analyst: Nilesh TAFOYA Anesthesia: General with local supplementation Estimated blood loss: Less than 100 mL Operative indication: The patient is a [age] -year-old woman with a failing arteriovenous fistula in the left upper extremity. 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 Operative findings: Excellent flow in the arteriovenous fistula at the end of the procedure. Easily palpable left radial pulse at the end of the procedure. Operative description: The patient was placed on the table in the supine position. She was given appropriate anesthesia. The area over the left arm was prepped with ChloraPrep solution and draped in usual sterile fashion. Real-time ultrasound guidance was used to identify vein in the forearm for use as a potential patch. Most of the patients superficial venous structures in the left arm were very small and of poor quality. There was a portion of the cephalic vein just distal to the elbow which appeared to be suitable for use. The area over this vein was anesthetized using local anesthesia. A linear incision is made of the top of the vein and the vein was harvested from the surrounding soft tissue. The vein was about a 3-4 mm vein and was easily opened to make a vein patch. Meticulous hemostasis was obtained and this wound. Real-time ultrasound guidance was used to identify the pseudoaneurysm and the fistula proximal to the elbow. The site of the origin of the aneurysm was identified. Local anesthesia was used on the skin over the pseudoaneurysm. A linear incision was made along the upper arm just medial to the fistula. The pseudoaneurysm was identified. The normal fistula proximal and distal to the pseudoaneurysm was also identified. The patient was given 2000 units of intravenous heparin. 3 minutes were allowed to pass. Arterial flow into the pseudoaneurysm was controlled as well as the venous outflow. The pseudoaneurysm was then opened and debrided back to the normal venous wall. There was a defect of about 10-12 mm in length. Otherwise, the fistula appeared to be in good condition. Using 6-0 Prolene, the harvested vein patch was then anastomosed over this portion of the vein to prevent any narrowing of the vein. The vessel was flushed and vented to remove any air or debris. The anastomosis was completed and then flow started into the fistula with development of an immediate and excellent thrill across the body of the fistula. Meticulous hemostasis was obtained in both wounds. Both wounds were closed with 3-0 Vicryl in the subcutaneous tissue. 4-0 Monocryl was used in the subcuticular tissue for skin closure. Sterile dressings were applied. The patient tolerated the procedure well. Sponge, needle, and instrument counts were reported as correct. The patient was taken from the operating room to the recovery room in stable condition. There was an easily palpable thrill in the arteriovenous fistula and an easily palpable left radial pulse.
== END 2018-12-09 09:31 | disposition home or self-care (01) ==
LOC: OR 09:30
PROVIDERS: ATTEND Surgery Vascular Surgery
DX: T82.868A Thrombosis due to vascular prosthetic devices, implants and grafts, initial encounter (principal); T82.898A Other specified complication of vascular prosthetic devices, implants and grafts, initial encounter; I12.0 Hypertensive chronic kidney disease with stage 5 chronic kidney disease or end stage renal disease; N18.6 End stage renal disease; M10.9 Gout, unspecified; I82.402 Acute embolism and thrombosis of unspecified deep veins of left lower extremity; K21.9 Gastro-esophageal reflux disease without esophagitis; F32.9 Major depressive disorder, single episode, unspecified; G47.30 Sleep apnea, unspecified; E66.9 Obesity, unspecified; H40.9 Unspecified glaucoma; Z98.49 Cataract extraction status, unspecified eye; Z79.899 Other long term (current) drug therapy; Z79.01 Long term (current) use of anticoagulants; Z87.891 Personal history of nicotine dependence; Z68.41 Body mass index [BMI] 40.0-44.9, adult; Z98.890 Other specified postprocedural states; Z86.2 Personal history of diseases of the blood and blood-forming organs and certain disorders involving the immune mechanism; Y83.9 Surgical procedure, unspecified as the cause of abnormal reaction of the patient, or of later complication, without mention of misadventure at the time of the procedure; Y92.89 Other specified places as the place of occurrence of the external cause
CPT/HCPCS: 36415; 36832; 80048; 85025; 85610; 88304; 88311; A4649; C1757; J0690; J1644; J2250; J2440; J2704; J2720; J3010; J3490; J7030; J7040

== ENCOUNTER 2019-02-19 14:39 | Inpatient (IN) | payer MEDICARE ==
--- NOTE | 2019-02-19 14:53 | Event Note ---
ED Screening Note Date of service: 02/19/19 Time: 14:50 ED Screening Note: 58 y o f with kidney disease presents for dialysis last dialyzed 8 days ago This initial assessment/diagnostic orders/clinical plan/treatment(s) is/are subject to change based on patients health status, clinical progression and re- assessment by fellow clinical providers in the ED. Further treatment and workup at subsequent clinical providers discretion. Patient/guardian urged not to elope from the ED as their condition may be serious if not clinically assessed and managed. Initial orders include: labs ua
[2019-02-19 15:19] LABS: Basophils % (Auto) 0.9 % (0.0-1.8); Eosinophils # (Auto) 0.1 K/mm3 (0.0-0.4); Eosinophils % (Auto) 2.8 % (0.0-4.3); Hematocrit 33.1 % (30.3-42.9); Hemoglobin 10.3 gm/dl (10.1-14.3); Lymphocytes # (Auto) 1.9 K/mm3 (1.2-5.4); Lymphocytes % (Auto) 37.7 % (13.4-35.0); Mean Corpuscular HGB Conc 31 % (30-34); Mean Corpuscular Volume 76 fl (79-97); Monocytes # (Auto) 0.5 K/mm3 (0.0-0.8); Monocytes % (Auto) 9.3 % (0.0-7.3); Platelet Count 224 K/mm3 (140-440); Red Blood Count 4.36 M/mm3 (3.65-5.03); Red Cell Distribution Width 16.3 % (13.2-15.2)
[2019-02-19 15:37] LABS: Albumin 4.1 g/dL (3.9-5); Calcium 7.8 mg/dL (8.4-10.2)
--- NOTE | 2019-02-19 20:08 | Emergency Department Report ---
HPI - General Chief Complaint: Medical Clearance Time Seen by Provider: 02/19/19 14:47 - HPI HPI: 58-year-old [place] female presents to the emergency department from home with a complaint of needing dialysis. Patient says that she was out of state and unable to get to a dialysis clinic and last had dialysis about 1 week ago. She normally gets dialysis on Wednesday, and Wednesday. Her container washer is Dr. Shell. She complains of some mild shortness of breath. She denies any fever, chest pain, edema. She also has a past medical history of DVT on Coumadin, hypertension, GERD, hepatitis C. She has left upper extremity dialysis access. ED Past Medical Hx - Past Medical History Previous Medical History?: Yes Hx Hypertension: Yes (X 30 YRS) Hx Heart Attack/AMI: No Hx Congestive Heart Failure: No Hx Diabetes: No Hx Deep Vein Thrombosis: Yes (RT ARM 10/2018- ON COUMADIN) Hx GERD: Yes Hx Liver Disease: Yes (HCV) Hx Renal Disease: Yes (HD T,,Wednesday) Hx Seizures: No Hx Asthma: No Hx COPD: No Hx HIV: No Additional medical history: depression - Surgical History Past Surgical History?: Yes Additional Surgical History: JAYY graft, Rt Vascath - Social History Smoking Status: Never Smoker Substance Use Type: None - Medications Home Medications: Home Medications Medication Instructions Recorded Confirmed Last Taken Type Allopurinol [Zyloprim] 100 mg PO DAILY #30 tablet 10/29/18 02/19/19 12/09/18 06:00 Rx Carvedilol [Coreg] 25 mg PO BID #60 tablet 10/29/18 02/19/19 12/09/18 06:00 Rx Latanoprost 0.005% 2 drops OU QHS #1 bottle 10/29/18 02/19/19 12/08/18 21:00 Rx Pantoprazole [Protonix TAB] 40 mg PO QDAY #30 tablet 10/29/18 02/19/19 12/09/18 06:00 Rx amLODIPine [Norvasc] 10 mg PO QDAY #30 tablet 10/29/18 02/19/19 12/09/18 06:00 Rx Valsartan [Diovan] 100 mg PO DAILY 12/01/18 02/19/19 12/09/18 06:00 History Warfarin Sodium [Coumadin] 7.5 mg PO DAILY 12/01/18 02/19/19 12/08/18 20:00 History buPROPion 300 mg PO DAILY 12/01/18 02/19/19 12/09/18 06:00 History Brimonidine Tartrate/Timolol 5 ml OP BID 02/19/19 02/19/19 Unknown History [Combigan 0.2%-0.5% Eye Drops] ED Review of Systems ROS: Stated complaint: DIALYSIS/POTASSIUM CHECK Other details as noted in HPI Physical Exam - Physical Exam Vital Signs: Vital Signs 02/19/19 02/19/19 02/19/19 14:44 19:58 20:01 Temperature 97.7 F 97.8 F Pulse Rate 80 67 Respiratory 18 20 20 Rate Blood Pressure 195/94 Blood Pressure 169/82 [Right] O2 Sat by Pulse 100 97 97 Oximetry Physical Exam: GENERAL: The patient is well-developed well-nourished. HENT: Normocephalic. Atraumatic. Patient has moist mucous membranes. EYES: Extraocular motions are intact. NECK: Supple. Trachea is midline. CHEST/LUNGS: Clear to auscultation. There is no respiratory distress noted. HEART/CARDIOVASCULAR: Regular. There is no tachycardia. There is no murmur. ABDOMEN: Abdomen is soft, nontender. Patient has normal bowel sounds. There is no abdominal distention. SKIN: Skin is warm and dry. NEURO: The patient is awake, alert, and oriented. The patient is cooperative. The patient has no focal neurologic deficits. Normal speech. MUSCULOSKELETAL: There is no tenderness or deformity. There is no evidence of acute injury. Patent left upper extremity dialysis fistula. ED Course Vital Signs 02/19/19 02/19/19 02/19/19 14:44 19:58 20:01 Temperature 97.7 F 97.8 F Pulse Rate 80 67 Respiratory 18 20 20 Rate Blood Pressure 195/94 Blood Pressure 169/82 [Right] O2 Sat by Pulse 100 97 97 Oximetry - Consultations Consultation #1: I spoke with the container washer on-call for Dr. Shell, Dr. Jain, who has suggested/requested that the patient be admitted overnight to receive dialysis tomorrow as he cannot guarantee that he can get the patient in for a dialysis session tomorrow at her normal dialysis clinic. He did not feel that the p atient required emergent dialysis this evening. 02/19/19 21:02 ED Medical Decision Making - Lab Data Result diagrams: 02/19/19 15:05 02/19/19 15:05 - Radiology Data Radiology results: image reviewed interpreted by me: Chest x-ray does not show any acute process. There are no pleural effusions, obvious pneumonia and there is no pneumothorax. - Medical Decision Making Patient percents the emergency department with a complaint of some mild shortness of breath after going about 8 days without getting her dialysis. Labs show some mild hyperkalemia and the elevated BUN/creatinine creatinine and GFR consistent with end-stage renal disease. Vital signs stable thus far. Spoke with nephrology who has been contacted and consult regarding dialysis. Patient will be admitted for dialysis tomorrow. Except for admission by the hospitalist, Dr. Farley. - Differential Diagnosis Hyperkalemia, CHF, Pneumonia Critical Care Time: No Critical care attestation.: If time is entered above; I have spent that time in minutes in the direct care of this critically ill patient, excluding procedure time. ED Disposition Clinical Impression: ESRD needing dialysis, Missed dialysis, Hypertensive urgency, Hyperkalemia Disposition: OP ADMIT IP TO THIS HOSP Is pt being admited?: Yes Condition: Fair Referrals: PRIMARY CARE, [Referring] - 3-5 Days Time of Disposition: 22:53
[2019-02-19 20:50] LABS: INR 2.33 (0.87-1.13)
[2019-02-19 20:51] LABS: Partial Thromboplastin Time 37.8 Sec. (24.2-36.6)
[2019-02-19] MEDS ORDERED: NACL 0.9% 100 ML IV PRN (21:02)
[2019-02-19] MEDS ORDERED: PROCRIT IV PRN (21:02)
--- NOTE | 2019-02-19 21:06 | XRay Report ---
CHEST PA AND LATERAL VIEWS INDICATION: SOB. COMPARISON: 10/22/2018 FINDINGS: Support devices: None. Perm catheter has been removed. Heart: Within normal limits and unchanged Lungs/Pleura: No acute pulmonary or pleural findings. IMPRESSION: 1. No significant abnormality. Signer Name: Mani Redding MD Signed: 02/19/2019 9:02 PM Workstation Name: [id number]
[2019-02-19] MEDS ORDERED: TYLENOL PO PRN (22:38)
[2019-02-19] MEDS ORDERED: PROVENTIL IH PRN (22:40)
[2019-02-19] MEDS ORDERED: ZOFRAN IV PRN (22:42)
[2019-02-19] MEDS ORDERED: KIONEX PO ONE (22:55)
[2019-02-19] MEDS ORDERED: KIONEX ONE (23:33)
[2019-02-19 23:42] LABS: Hepatitis B Surface Antigen Non-Reactive (Negative); Hepatitis C Virus Antibody Reactive (NonReactive)
--- NOTE | 2019-02-20 07:02 | History and Physical Report ---
CHIEF COMPLAINT: Shortness of breath. Other complaints include dizziness and headache. HISTORY OF PRESENTING ILLNESS: The patient is a 58-year-old female who said she was out of state, was unable to get her dialysis for about 1 week and was having shortness of breath. Also, the patient complained about dizziness and headache. She dialyzes on Tuesdays, , and Saturdays, and the patient denied history of chest pain, denied history of ankle swelling, fever or chills, nausea or vomiting and presented saying that she needs dialysis. PAST MEDICAL HISTORY: Pertinent for hypertension, deep vein thrombosis involving the right upper extremity and the patient is on Coumadin for that. The patient also has past medical history of gastroesophageal reflux disease, hepatitis C virus infection, end-stage renal disease, on dialysis and depression. PAST SURGICAL HISTORY: Pertinent for left upper arm graft for dialysis and right Vas Cath. FAMILY HISTORY: Noncontributory. SOCIAL HISTORY: The patient does not smoke, does not drink alcohol and does not use illicit drug. MEDICATIONS: The patient is on allopurinol 100 mg by mouth daily, carvedilol 12.5 mg by mouth twice daily, latanoprost 0.005% two drops to the affected eye every night. The patient is on Protonix also 40 mg by mouth daily, Norvasc 10 mg by mouth daily, Diovan 100 mg by mouth daily, warfarin or Coumadin 7.5 mg by mouth daily, bupropion 300 mg by mouth daily and brimonidine tartrate 5 mL op b.i.d. ALLERGIES: There are no known drug allergies. REVIEW OF SYSTEMS: CONSTITUTIONAL: There is no fever, no chills, no diaphoresis. HEENT: There is no headache or sore throat. CARDIOVASCULAR SYSTEM: There is no chest pain or orthopnea. RESPIRATORY SYSTEM: There is shortness of breath, but no cough. GASTROINTESTINAL SYSTEM: There is no nausea, no vomiting, no abdominal pain, diarrhea or constipation. NEUROLOGICAL SYSTEM: Dizziness is present. Headache present. No altered mental status. MUSCULOSKELETAL SYSTEM: There is no joint pain or swelling. DERMATOLOGICAL SYSTEM: There is no skin rash or itching. GENITOURINARY SYSTEM: There is no dysuria, hematuria, or flank pain. Rest of system review is normal. PHYSICAL EXAMINATION: GENERAL: At the time of exam, the patient was found to be alert, oriented x 3 and not in acute distress. VITAL SIGNS: At the initial time of presentation showed temperature of 97.7 degrees Fahrenheit, pulse of 80, respirations 18, blood pressure 195/94, O2 sat of 100% on room air. HEENT: Showed pupils to be equal, round, reactive to light and accommodating. Extraocular muscles are intact. NECK: Supple with no JVD or carotid bruit. CARDIOVASCULAR SYSTEM: Showed normal first and second heart sounds with no gallops or murmurs. RESPIRATORY SYSTEM: Showed good air entry on both sides of the lungs with no abnormal breath sounds. GASTROINTESTINAL SYSTEM: Showed abdomen to be full, soft, nontender with no organomegaly or rigidity. NEUROLOGIC: Shows no focal deficit. MUSCULOSKELETAL SYSTEM: Showed no joint swelling or tenderness. DERMATOLOGICAL SYSTEM: Showed no skin rash. GENITOURINARY SYSTEM: Showing no costovertebral angle tenderness. PERTINENT LABORATORY AND IMAGING STUDIES: The patient had the following lab test done: CBC showed normal white count, normal hemoglobin and normal hematocrit with CBC differential showing elevated lymphocyte count of 37.7% and high monocyte count of 9.3%. The patient's coagulation studies show high PT of 25.1 and high INR of 2.33 and the patient is on Coumadin with elevated PTT of 37.8. The patient's chemistry showed normal sodium with high potassium level of 5.2, elevated BUN of 97 with high creatinine of 6.8, consistent with end-stage renal disease, on dialysis and the patient's serology tests show reactive hepatitis C antibody, which is consistent with the patient's history of hepatitis C virus infection. The patient had chest x-ray done that came back showing no acute abnormality. DIAGNOSES: 1. End-stage renal disease, on dialysis. 2. Hyperkalemia. 3. Hypertension. PLAN OF CARE: 1. The patient will be admitted to medical pat on remote telemetry. 2. The patient will continue Nephrology consult with Dr. Jain as requested by the Emergency Room physician for management of end-stage renal disease. 3. The patient's diet will be low sodium diet. 4. The patient will be on albuterol nebulizer 2.5 mg every 6 hours as needed for shortness of breath. 5. The patient will be on her home medication as shown in the medication reconciliation section that includes amlodipine 10 mg daily. 6. The patient will be on p.r.n. medications like IV Zofran 4 mg every 8 hours for nausea and vomiting and Tylenol 650 mg by mouth every 4 hours for fever and headache and the patient's DVT prophylaxis will be provided by sequential compressive device and the patient's treatment with warfarin or Coumadin. JOB# [id number] OCN/NTS
--- NOTE | 2019-02-20 07:53 | Progress Note ---
Assessment and Plan Assessment and plan: 58-year-old woman with history of end-stage renal disease [facility] She presented with dizziness and headache. Past medical history; incision disease on dialysis Wednesday, hypertension and history of DVT of right upper extremity on Coumadin Chest x-ray shows no acute findings Diagnosis Uremia due to missed dialysis End-stage renal disease Hyperkalemia Nonadherence to dialysis Plan Dialysis per nephrology Preventative health counseling greater than 70 minutes DVT prophylaxis; full anticoagulated Hospitalist Physical - Constitutional Vitals: Temp Pulse Resp BP Pulse Ox 97.6 F 79 18 154/74 96 02/20/19 05:23 02/20/19 05:23 02/20/19 05:23 02/20/19 05:23 02/20/19 05:23 Results - Labs CBC & Chem 7: 02/19/19 15:05 02/19/19 15:05 Labs: Laboratory Last Values WBC 5.1 K/mm3 (4.5-11.0) 02/19/19 15:05 RBC 4.36 M/mm3 (3.65-5.03) 02/19/19 15:05 Hgb 10.3 gm/dl (10.1-14.3) 02/19/19 15:05 Hct 33.1 % (30.3-42.9) 02/19/19 15:05 MCV 76 fl (79-97) L 02/19/19 15:05 MCH 24 pg (28-32) L 02/19/19 15:05 MCHC 31 % (30-34) 02/19/19 15:05 RDW 16.3 % (13.2-15.2) H 02/19/19 15:05 Plt Count 224 K/mm3 (140-440) 02/19/19 15:05 Lymph % (Auto) 37.7 % (13.4-35.0) H 02/19/19 15:05 Johnston % (Auto) 9.3 % (0.0-7.3) H 02/19/19 15:05 Eos % (Auto) 2.8 % (0.0-4.3) 02/19/19 15:05 Baso % (Auto) 0.9 % (0.0-1.8) 02/19/19 15:05 Lymph # 1.9 K/mm3 (1.2-5.4) 02/19/19 15:05 Johnston # 0.5 K/mm3 (0.0-0.8) 02/19/19 15:05 Eos # 0.1 K/mm3 (0.0-0.4) 02/19/19 15:05 Baso # 0.0 K/mm3 (0.0-0.1) 02/19/19 15:05 Seg Neutrophils % 49.3 % (40.0-70.0) 02/19/19 15:05 Seg Neutrophils # 2.5 K/mm3 (1.8-7.7) 02/19/19 15:05 PT 25.1 Sec. (12.2-14.9) H 02/19/19 20:15 INR 2.33 (0.87-1.13) H 02/19/19 20:15 APTT 37.8 Sec. (24.2-36.6) H 02/19/19 20:15 Sodium 139 mmol/L (137-145) 02/19/19 15:05 Potassium 5.2 mmol/L (3.6-5.0) H 02/19/19 15:05 Chloride 101.5 mmol/L (98-107) 02/19/19 15:05 Carbon Dioxide 20 mmol/L (22-30) L 02/19/19 15:05 23 mmol/L 02/19/19 15:05 BUN 97 mg/dL (7-17) H 02/19/19 15:05 6.8 mg/dL (0.7-1.2) H 02/19/19 15:05 Estimated GFR 7 ml/min 02/19/19 15:05 14 % 02/19/19 15:05 Glucose 109 mg/dL (65-100) H 02/19/19 15:05 Calcium 7.8 mg/dL (8.4-10.2) L 02/19/19 15:05 0.30 mg/dL (0.1-1.2) 02/19/19 15:05 AST 33 units/L (5-40) 02/19/19 15:05 ALT 38 units/L (7-56) 02/19/19 15:05 72 units/L (35-129) 02/19/19 15:05 7.0 g/dL (6.3-8.2) 02/19/19 15:05 4.1 g/dL (3.9-5) 02/19/19 15:05 1.4 % 02/19/19 15:05 Hepatitis A IgM Ab Non-reactive (NonReactive) 02/19/19 22:44 Hep Bs Antigen Non-reactive (Negative) 02/19/19 22:44 Hep B Core IgM Ab Non-reactive (NonReactive) 02/19/19 22:44 Reactive (NonReactive) A 02/19/19 22:44 Active Medications - Current Medications Current Medications: Generic Name Dose Route Start Last Admin Trade Name Freq PRN Reason Stop Dose Admin Acetaminophen 650 mg 02/19/19 22:38 Tylenol PO Q4H PRN Headache Albuterol 2.5 mg 02/19/19 22:40 Proventil IH Q6HRT PRN Shortness Of Breath Allopurinol 100 mg 02/20/19 10:00 Zyloprim PO DAILY [facility] Amlodipine Besylate 10 mg 02/20/19 10:00 Norvasc PO QDAY [facility] Bupropion HCl 300 mg 02/20/19 10:00 Wellbutrin Sr PO DAILY [facility] Carvedilol 25 mg 02/20/19 10:00 Coreg PO BID [facility] Epoetin Chapo 6,000 unit 02/19/19 21:02 Procrit IV VANESSA PRN hemodialysis Sodium Chloride 100 mls @ 999 mls/hr 02/19/19 21:02 Nacl 0.9% IV VANESSA PRN Hypotension Latanoprost 2 drops 02/20/19 22:00 Latanoprost 0.005% OU QHS [facility] Ondansetron HCl 4 mg 02/19/19 22:42 Zofran IV Q8H PRN Nausea And Vomiting Pantoprazole Sodium 40 mg 02/20/19 10:00 Protonix PO QDAY [facility] Valsartan 80 mg 02/20/19 10:00 Diovan PO DAILY [facility] Warfarin Sodium 7.5 mg 02/20/19 17:00 Coumadin PO DAILY@1700 [facility] Protocol
--- NOTE | 2019-02-20 08:52 | Consultation ---
History of Present Illness - History of Present Illness Source of information: History of presenting illness 58-year-old -[place] female who has been admitted here after missing dialysis treatment, patient stated that she went on a cruise and missed her dialysis treatment. She denies having any complaints of, chest pain, pressure. She has had very mild shortness of breath this morning, her dialysis access has been working well. She has no other complaints at this time including any nausea, vomiting, metallic taste in mouth She wants to go home off dialysis and wants to dialyze at her dialysis center Past medical history is significant for ESRD hypertension secondary hyperparathyroidism Family history: Reviewed from the chart Social history: reviewed from the chart Allergies: reviewed from the chart Medications: Reviewed from the chart Review of system is positive for missing dialysis treatment. Patient as on cruise no chest pain, pressure, very mild shortness of breath All other review of system negative Physical examination Vitals: Reviewed HEENT: Oral mucosa mildly dry. No pharyngeal erythema, no icterus Neck: Supple, no JVD, thyromegaly, nodule or mass Chest: Clear to auscultation anteriorly. Very few faint basilar crackles Heart: Regular rate and rhythm, S1, S2 heard, no S3, S4 Abdomen: Soft, nontender, bowel sounds present. No suprapubic mass. No CVA tenderness. No renal bruit Extremities: No petechial rash, dry skin, 1+ edema, no peripheral cyanosis Neurological: Alert, awake, follows commands. No asterixis Dermatology; no petechial skin rash, dry skin, poor skin hygiene Back: Nontender thoracolumbar spine Psychiatric: No agitation, aggression noted My assessment and plan are as follows End-stage renal disease: Patient will continue with hemodialysis treatment, 3 ti mes a week on Wednesday, Wednesday and Wednesday , schedule. Monitor dialysis related labs. Dialysis access: Working well. No immediate issues Patient missed dialysis due to cruising, she is clinically doing otherwise okay. Counseled and educated not to miss dialysis treatment going forward, Anemia and end-stage renal disease: To monitor and follow. Erythropoietin as required Secondary hyperparathyroidism and bone mineral disorder. Check phosphorus and PTH level periodically Hypertension and volume: Continue to monitor. Goal systolic blood pressure less than 150 for now, ultrafiltration only as tolerated with hemodialysis. Advised to maintain fluid restriction 1200 cc per day Patient is to be on high protein diet due to dialysis status, will benefit from nutritional evaluation and follow-up Multiple other comorbidities; being followed by the primary team She can be discharged postdialysis to follow-up her dialysis center Renal care plan was discussed with patient. Labs were explained to the patient and simple Telugu. Patient does appear to have good understanding of several renal-related issues that were discussed today. We'll continue to follow and make recommendations from renal standpoint Patient was advised to make an appointment for follow-up in the office upon discharge. Medications and Allergies Allergies Allergy/AdvReac Type Severity Reaction Status Date / Time No Known Allergies Allergy Verified 05/18/18 18:12 Home Medications Medication Instructions Recorded Confirmed Last Taken Type Allopurinol [Zyloprim] 100 mg PO DAILY #30 tablet 10/29/18 02/19/19 12/09/18 06:00 Rx Carvedilol [Coreg] 25 mg PO BID #60 tablet 10/29/18 02/19/19 12/09/18 06:00 Rx Latanoprost 0.005% 2 drops OU QHS #1 bottle 10/29/18 02/19/19 12/08/18 21:00 Rx Pantoprazole [Protonix TAB] 40 mg PO QDAY #30 tablet 10/29/18 02/19/19 12/09/18 06:00 Rx amLODIPine [Norvasc] 10 mg PO QDAY #30 tablet 10/29/18 02/19/19 12/09/18 06:00 Rx Valsartan [Diovan] 100 mg PO DAILY 12/01/18 02/19/19 12/09/18 06:00 History Warfarin Sodium [Coumadin] 7.5 mg PO DAILY 12/01/18 02/19/19 12/08/18 20:00 History buPROPion 300 mg PO DAILY 12/01/18 02/19/19 12/09/18 06:00 History Brimonidine Tartrate/Timolol 5 ml OP BID 02/19/19 02/19/19 Unknown History [Combigan 0.2%-0.5% Eye Drops] Active Meds: Active Medications Acetaminophen (Tylenol) 650 mg PO Q4H PRN PRN Reason: Headache Albuterol (Proventil) 2.5 mg IH Q6HRT PRN PRN Reason: Shortness Of Breath Allopurinol (Zyloprim) 100 mg PO DAILY [facility] Amlodipine Besylate (Norvasc) 10 mg PO QDAY [facility] Bupropion HCl (Wellbutrin Sr) 300 mg PO DAILY [facility] Carvedilol (Coreg) 25 mg PO BID [facility] Epoetin Chapo (Procrit) 6,000 unit IV VANESSA PRN PRN Reason: hemodialysis Sodium Chloride (Nacl 0.9%) 100 mls @ 999 mls/hr IV VANESSA PRN PRN Reason: Hypotension Latanoprost (Latanoprost 0.005%) 2 drops OU QHS [facility] Ondansetron HCl (Zofran) 4 mg IV Q8H PRN PRN Reason: Nausea And Vomiting Pantoprazole Sodium (Protonix) 40 mg PO QDAY [facility] Valsartan (Diovan) 80 mg PO DAILY [facility] Warfarin Sodium (Coumadin) 7.5 mg PO DAILY@1700 [facility]; Protocol Exam - Vital Signs Vital signs: Vital Signs Temp Pulse Resp BP Pulse Ox 97.7 F 80 18 195/94 100 02/19/19 14:44 02/19/19 14:44 02/19/19 14:44 02/19/19 14:44 02/19/19 14:44 Results - Lab Results 02/19/19 15:05 02/19/19 15:05 Most recent lab results Calcium 7.8 mg/dL (8.4-10.2) L 02/19/19 15:05
[2019-02-20 09:50] LABS: Bilirubin,Urine NEG (Negative); Blood,Urine NEG (Negative); Color,Urine Yellow (Yellow); RBC,Urine < 1.0 /HPF (0.0-6.0); Urobilinogen,Urine < 2.0 mg/dL (<2.0)
[2019-02-20] MEDS ORDERED: COREG PO SCH (10:00)
[2019-02-20] MEDS: NORVASC PO SCH ×2 (10:32→12:43)
[2019-02-20] MEDS: DIOVAN PO SCH ×2 (10:32→13:26)
[2019-02-20] MEDS: WELLBUTRIN SR PO SCH ×2 (10:32→17:21)
[2019-02-20] MEDS: PROTONIX PO SCH ×2 (10:32→17:21)
[2019-02-20] MEDS: ZYLOPRIM PO SCH ×2 (10:33→17:21)
[2019-02-20] MEDS ORDERED: NACL 0.9 (PRIMING MACHINE ONLY DIALYSIS) MC ONE (12:16)
[2019-02-20 12:21] LABS: INR 2.14 (0.87-1.13)
[2019-02-20] MEDS ORDERED: APRESOLINE IV PRN (12:49)
--- NOTE | 2019-02-20 12:50 | Discharge Summary ---
Providers - Providers Date of Admission: 02/19/19 22:33 Attending physician: KRISTINA PEREYRA MD 02/19/19 20:54 Consult to Physician [CONS] Routine Comment: Consulting Provider: ROMELIA BROWNE Physician Instructions: Reason For Exam: dialysis Primary care physician: СВЕТЛАНА PRO MD Hospitalization Condition: Fair Hospital course: 58-year-old woman with history of end-stage renal disease [facility] She presented with dizziness and headache. Past medical history; incision disease on dialysis Wednesday, hypertension and history of DVT of right upper extremity on Coumadin Chest x-ray shows no acute findings Diagnosis Uremia due to missed dialysis End-stage renal disease Hyperkalemia Nonadherence to dialysis Plan Dialysis per nephrology Preventative health counseling greater than 70 minutes DVT prophylaxis; full anticoagulated Disposition: - TO HOME OR SELFCARE Time spent for discharge: 33 mins Core Measure Documentation - Palliative Care Palliative Care/ Comfort Measures: Not Applicable - Core Measures Any of the following diagnoses?: none Exam - Constitutional Vitals: Temp Pulse Resp BP Pulse Ox 98.2 F 74 16 189/104 98 02/20/19 10:32 02/20/19 12:43 02/20/19 12:46 02/20/19 12:43 02/20/19 10:32 General appearance: Present: no acute distress, well-nourished - EENT Eyes: Present: PERRL ENT: hearing intact, clear oral mucosa - Neck Neck: Present: supple, normal ROM - Respiratory Respiratory effort: normal Respiratory: bilateral: CTA - Cardiovascular Heart Sounds: Present: S1 & S2. Absent: rub, click - Extremities Extremities: pulses symmetrical, No edema Peripheral Pulses: within normal limits - Abdominal General gastrointestinal: Present: soft, non-tender, non-distended, normal bowel sounds Female genitourinary: Present: normal - Integumentary Integumentary: Present: clear, warm, dry - Musculoskeletal Musculoskeletal: gait normal, strength equal bilaterally - Psychiatric Psychiatric: appropriate mood/affect, intact judgment & insight - Neurologic Neurologic: CNII-XII intact, moves all extremities Plan Follow up with: PRIMARY CARE, [Referring] - 3-5 Days Forms: Warfarin Discharge Instruction
[2019-02-20 15:48] VITALS: BP 155/79
[2019-02-20] MEDS ORDERED: COUMADIN PO SCH (17:00)
[2019-02-20] MEDS ORDERED: LATANOPROST 0.005% OU SCH (22:00)
== END 2019-02-20 18:30 | disposition home or self-care (01) | DRG 640 ==
LOC: ED 14:39 → 3A 22:33
PROVIDERS: ADMIT Internal Medicine; ATTEND Internal Medicine
PROC: 5A1D70Z Performance of Urinary Filtration, Intermittent, Less than 6 Hours Per Day (ICD-10-PCS; principal; 2019-02-20)
DX: E87.5 Hyperkalemia (principal); N18.6 End stage renal disease; I12.0 Hypertensive chronic kidney disease with stage 5 chronic kidney disease or end stage renal disease; N25.81 Secondary hyperparathyroidism of renal origin; I16.0 Hypertensive urgency; K21.9 Gastro-esophageal reflux disease without esophagitis; B19.20 Unspecified viral hepatitis C without hepatic coma; D64.9 Anemia, unspecified; E83.89 Other disorders of mineral metabolism; Z91.15 Patient's noncompliance with renal dialysis; Z79.01 Long term (current) use of anticoagulants; Z86.718 Personal history of other venous thrombosis and embolism; Z99.2 Dependence on renal dialysis
CPT/HCPCS: 36415; 71046; 80053; 80074; 81001; 85025; 85610; 85730; 87116; 94640; G0378; J0885; J7030

== ENCOUNTER 2019-05-20 15:31 | Observation (INO) | payer MEDICARE ==
--- NOTE | 2019-05-20 15:39 | Event Note ---
ED Screening Note ED Screening Note: has not gone to dialysis since 05/13/19 states she has major depression and did not want to get out of the house to go no SI no HI states she has mild sob no CP PMHx MDD, HTN, ESRD This initial assessment/diagnostic orders/clinical plan/treatment(s) is/are subject to change based on patients health status, clinical progression and re- assessment by fellow clinical providers in the ED. Further treatment and workup at subsequent clinical providers discretion. Patient/guardian urged not to elope from the ED as their condition may be serious if not clinically assessed and managed. Initial orders include: labs
[2019-05-20 16:03] LABS: Basophils % (Auto) 0.7 % (0.0-1.8); Eosinophils # (Auto) 0.2 K/mm3 (0.0-0.4); Eosinophils % (Auto) 3.1 % (0.0-4.3); Hematocrit 36.1 % (30.3-42.9); Hemoglobin 11.1 gm/dl (10.1-14.3); Lymphocytes # (Auto) 2.1 K/mm3 (1.2-5.4); Lymphocytes % (Auto) 37.5 % (13.4-35.0); Mean Corpuscular HGB Conc 31 % (30-34); Mean Corpuscular Volume 78 fl (79-97); Monocytes # (Auto) 0.4 K/mm3 (0.0-0.8); Monocytes % (Auto) 7.2 % (0.0-7.3); Platelet Count 313 K/mm3 (140-440); Red Blood Count 4.62 M/mm3 (3.65-5.03)
[2019-05-20 16:21] LABS: Albumin 4.1 g/dL (3.9-5); Calcium 7.9 mg/dL (8.4-10.2)
--- NOTE | 2019-05-20 20:49 | Emergency Department Report ---
ED Medical Clearance HPI - General Chief complaint: Medical Clearance Stated complaint: NEED DIALYSIS/CK POTASSIUM Time Seen by Provider: 05/20/19 15:37 Source: patient, RN notes reviewed, old records reviewed Mode of arrival: Ambulatory Limitations: No Limitations - History of Present Illness Initial comments: Nephrology: Dr. Perdomo Primary care Dr.: Dr. Apodaca The patient is a pleasant 58-year-old female, with a history of end-stage renal disease, on hemodialysis, noncompliant, typically receives dialysis Wednesday, , Wednesday. Her last dialysis session was one week ago. She went to her outpatient dialysis center today, and she was referred to the emergency room. The patient has no physical complaints. She denies physical pain. She is producing urine. She feels like she is up on her water weight. MD Complaint: medical clearance request Reason for Medical Clearance: medical condition, laboratory abnormality Place: home Alledged Intoxication: No Compliant with Home Medications: Yes Traumatic Symptoms: denies traumatic injury Associated Symptoms: shortness of breath Treatments Prior to Arrival: none Home medications: Home Medications Medication Instructions Recorded Confirmed Last Taken Valsartan [Diovan] 100 mg PO DAILY 12/01/18 02/19/19 12/09/18 06:00 Warfarin Sodium [Coumadin] 7.5 mg PO DAILY 12/01/18 02/19/19 12/08/18 20:00 buPROPion 300 mg PO DAILY 12/01/18 02/19/19 12/09/18 06:00 Brimonidine Tartrate/Timolol 5 ml OP BID 02/19/19 02/19/19 Unknown [Combigan 0.2%-0.5% Eye Drops] Previous Rx's Medication Instructions Recorded Last Taken Type Allopurinol [Zyloprim] 100 mg PO DAILY #30 tablet 10/29/18 12/09/18 06:00 Rx Latanoprost 0.005% 2 drops OU QHS #1 bottle 10/29/18 12/08/18 21:00 Rx Pantoprazole [Protonix TAB] 40 mg PO QDAY #30 tablet 10/29/18 12/09/18 06:00 Rx amLODIPine 10 mg PO QDAY #30 tablet 10/29/18 12/09/18 06:00 Rx carvediloL [Coreg] 25 mg PO BID #60 tablet 10/29/18 12/09/18 06:00 Rx Allergies/Adverse reactions: Allergies Allergy/AdvReac Type Severity Reaction Status Date / Time No Known Allergies Allergy Verified 05/18/18 18:12 ED Review of Systems ROS: Stated complaint: NEED DIALYSIS/CK POTASSIUM Other details as noted in HPI Comment: All other systems reviewed and negative Respiratory: SOB with exertion ED Past Medical Hx - Past Medical History Hx Hypertension: Yes (X 30 YRS) Hx Heart Attack/AMI: No Hx Congestive Heart Failure: No Hx Diabetes: No Hx Deep Vein Thrombosis: Yes (RT ARM 10/2018- ON COUMADIN) Hx GERD: Yes Hx Liver Disease: Yes (HCV) Hx Renal Disease: Yes (HD T,,Wednesday) Hx Seizures: No Hx Asthma: No Hx COPD: No Hx HIV: No Additional medical history: depression - Surgical History Additional Surgical History: JAYY graft, Rt Vascath - Social History Smoking Status: Former Smoker Substance Use Type: Prescribed - Medications Home Medications: Home Medications Medication Instructions Recorded Confirmed Last Taken Type Allopurinol [Zyloprim] 100 mg PO DAILY #30 tablet 10/29/18 02/19/19 12/09/18 06:00 Rx Latanoprost 0.005% 2 drops OU QHS #1 bottle 10/29/18 02/19/19 12/08/18 21:00 Rx Pantoprazole [Protonix TAB] 40 mg PO QDAY #30 tablet 10/29/18 02/19/19 12/09/18 06:00 Rx amLODIPine 10 mg PO QDAY #30 tablet 10/29/18 02/19/19 12/09/18 06:00 Rx carvediloL [Coreg] 25 mg PO BID #60 tablet 10/29/18 02/19/19 12/09/18 06:00 Rx Valsartan [Diovan] 100 mg PO DAILY 12/01/18 02/19/19 12/09/18 06:00 History Warfarin Sodium [Coumadin] 7.5 mg PO DAILY 12/01/18 02/19/19 12/08/18 20:00 History buPROPion 300 mg PO DAILY 12/01/18 02/19/19 12/09/18 06:00 History Brimonidine Tartrate/Timolol 5 ml OP BID 02/19/19 02/19/19 Unknown History [Combigan 0.2%-0.5% Eye Drops] ED Physical Exam - General Limitations: No Limitations General appearance: alert, obese - Head Head exam: Present: atraumatic, normocephalic - Eye Eye exam: Present: normal appearance, EOMI. Absent: nystagmus - ENT ENT exam: Present: normal exam, normal orophraynx, mucous membranes moist, normal external ear exam - Neck Neck exam: Present: normal inspection, full ROM. Absent: tenderness, meningismus - Respiratory Respiratory exam: Present: normal lung sounds bilaterally. Absent: respiratory distress - Cardiovascular Cardiovascular Exam: Present: regular rate, normal rhythm, normal heart sounds. Absent: bradycardia, tachycardia, irregular rhythm, systolic murmur, diastolic murmur, rubs, gallop - GI/Abdominal GI/Abdominal exam: Present: soft. Absent: distended, tenderness, guarding, rebound, rigid, pulsatile mass - Extremities Exam Extremities exam: Present: normal inspection, full ROM, pedal edema, other (2+ pulses noted in the bilateral upper and lower extremities. There is no palpable cord. negative Homans sign. Muscular compartments are soft. The pelvis is stable.). Absent: calf tenderness - Back Exam Back exam: Present: normal inspection, full ROM. Absent: tenderness, CVA tenderness (R), CVA tenderness (L), paraspinal tenderness, vertebral tenderness - Neurological Exam Neurological exam: Present: alert, other (there is no facial droop. The tongue is midline. The extraocular movements are intact bilaterally. There is 5 out of 5 strength in the bilateral upper and lower extremities. Sensation is intact to light touch in bilateral upper and lower extremities) - Psychiatric Psychiatric exam: Present: normal affect, normal mood - Skin Skin exam: Present: warm, dry, intact, normal color. Absent: rash ED Course Vital Signs 05/20/19 05/20/19 05/20/19 15:38 22:00 22:31 Temperature 97.6 F 98.6 F Pulse Rate 83 67 Respiratory 18 20 20 Rate Blood Pressure 178/87 Blood Pressure 182/83 [Right] O2 Sat by Pulse 99 99 99 Oximetry 05/20/19 22:51 Temperature Pulse Rate 67 Respiratory Rate Blood Pressure 200/103 Blood Pressure [Right] O2 Sat by Pulse Oximetry ED Medical Decision Making - Lab Data Result diagrams: 05/20/19 15:52 05/20/19 15:52 Vital Signs 05/20/19 15:38 Temperature 97.6 F Pulse Rate 83 Respiratory 18 Rate Blood Pressure 178/87 O2 Sat by Pulse 99 Oximetry Lab Results 05/20/19 05/20/19 Range/Units 15:52 15:52 WBC 5.6 (4.5-11.0) K/mm3 RBC 4.62 (3.65-5.03) M/mm3 Hgb 11.1 (10.1-14.3) gm/dl Hct 36.1 (30.3-42.9) % MCV 78 L (79-97) fl MCH 24 L (28-32) pg MCHC 31 (30-34) % RDW 17.0 H (13.2-15.2) % Plt Count 313 (140-440) K/mm3 Lymph % (Auto) 37.5 H (13.4-35.0) % Potter % (Auto) 7.2 (0.0-7.3) % Eos % (Auto) 3.1 (0.0-4.3) % Baso % (Auto) 0.7 (0.0-1.8) % Lymph # 2.1 (1.2-5.4) K/mm3 Potter # 0.4 (0.0-0.8) K/mm3 Eos # 0.2 (0.0-0.4) K/mm3 Baso # 0.0 (0.0-0.1) K/mm3 Seg Neutrophils % 51.5 (40.0-70.0) % Seg Neutrophils # 2.9 (1.8-7.7) K/mm3 Sodium 139 (137-145) mmol/L Potassium 5.8 H (3.6-5.0) mmol/L Chloride 102.8 (98-107) mmol/L Carbon Dioxide 16 L (22-30) mmol/L Anion Gap 26 mmol/L BUN 76 H (7-17) mg/dL Creatinine 8.2 H (0.7-1.2) mg/dL Estimated GFR 6 ml/min BUN/Creatinine Ratio 9 % Glucose 87 (65-100) mg/dL Calcium 7.9 L (8.4-10.2) mg/dL Phosphorus 5.40 H (2.5-4.5) mg/dL Magnesium 1.80 (1.7-2.3) mg/dL Total Bilirubin 0.20 (0.1-1.2) mg/dL AST 32 (5-40) units/L ALT 78 H (7-56) units/L Alkaline Phosphatase 119 (35-129) units/L Total Creatine Kinase 88 (30-135) units/L Total Protein 7.3 (6.3-8.2) g/dL Albumin 4.1 (3.9-5) g/dL Albumin/Globulin Ratio 1.3 % - EKG Data -: EKG Interpreted by Md EKG shows normal: sinus rhythm Rate: normal - EKG Data 05/20/19 21:53 The EKG shows a sinus rhythm, 69 bpm, normal axis, QTC is prolonged, there is poor R-wave progression, there is motion artifact, there is atrial enlargement, the EKG is abnormal, the EKG is not consistent with ST elevation myocardial infarction. - Radiology Data Radiology results: report reviewed, image reviewed Print Report Referring Physician: DENNYS MEADE Patient Name: CHRISTI APGAN Date of : 1960 Sex: Female Report Date: 2019-05-20 Report Status: Finalized Findings [facility] [address] [place] [address] XRay Report Signed Patient: CHRISTI PAGAN MR#: [id number] : 1960 Acct:[id number] Age/Sex: 58 / F ADM Date: 05/20/19 Loc: ED Attending Dr: Ordering Physician: DENNYS MEADE MD Date of Service: 05/20/19 Procedure(s): XR chest 1V ap Accession Number(s): [id number] cc: DENNYS MEADE MD Fluoro Time In Minutes: CHEST 1 VIEW 05/20/2019 8:48 PM INDICATION / CLINICAL INFORMATION: Shortness of breath. COMPARISON: Chest x-ray on 02/19/2019. FINDINGS: SUPPORT DEVICES: None. HEART / MEDIASTINUM: No significant abnormality. LUNGS / PLEURA: No significant pulmonary or pleural abnormality. No pneumothorax. ADDITIONAL FINDINGS: No significant additional findings. IMPRESSION: 1. No acute findings. No adverse change from the prior exam. Signer Name: Ramos Harvey MD Signed: 05/20/2019 9:03 PM Workstation Name: [id number] Transcribed By: DEX Dictated By: Ramos Harvey MD Electronically Authenticated By: Ramos Harvey MD Signed Date/Time: 05/20/192102 DD/ 02 TD/TT: - Medical Decision Making Differential diagnosis, including but not limited to: Dialysis noncompliance, hyperkalemia, azotemia, metabolic acidosis Assessment and plan: 58-year-old female with a complaint of painless request for hemodialysis. She has a potassium of 5.8, and has laboratory evidence of metabolic acidosis and anion gap acidosis. Contacted covering nephrology on- call, Dr. Shell, who advised admission for urgent hemodialysis first thing in the morning, and was in agreement with medical therapy for hyper kalemia. Hospital physician, Dr. Fong, has accepted the patient to the medical service. The patient is pleasant, calm and cooperative, she does not appear to be psychotic. She did not endorse any homicidality or suicidality to myself. Discussed plan of care with the patient, who verbalized understanding, she is amenable to hospitalization, medical therapy, and hemodialysis in the morning. Patient has an emergent medical condition at this time, manifest objectively by hyperkalemia, azotemia, uremia, metabolic acidosis. She meets criteria for hospitalization for urgent hemodialysis, in conjunction with medical management. - EJ/Peripheral Line Neck R Time Out Performed: Yes Indications: nurses unable to establis Skin Cleansed in Sterile Fashion: Yes Size: 22 Dressing Placed: Tegaderm Patient Tolerated Procedure: well ED Disposition Clinical Impression: Acidosis, Acute hyperkalemia, HTN (hypertension), ESRD needing dialysis Disposition: OP ADMIT IP TO THIS HOSP Is pt being admited?: Yes Condition: Stable
--- NOTE | 2019-05-20 21:08 | XRay Report ---
CHEST 1 VIEW 05/20/2019 8:48 PM INDICATION / CLINICAL INFORMATION: Shortness of breath. COMPARISON: Chest x-ray on 02/19/2019. FINDINGS: SUPPORT DEVICES: None. HEART / MEDIASTINUM: No significant abnormality. LUNGS / PLEURA: No significant pulmonary or pleural abnormality. No pneumothorax. ADDITIONAL FINDINGS: No significant additional findings. IMPRESSION: 1. No acute findings. No adverse change from the prior exam. Signer Name: Ramos Harvey MD Signed: 05/20/2019 9:03 PM Workstation Name: [id number]
[2019-05-20] MEDS ORDERED: SODIUM BICARB 8.4% 50 MEQ/50 ML SYRINGE IV ONE ×2 (21:19→23:20)
[2019-05-20] MEDS ORDERED: DEXTROSE 50% IN WATER (25GM) 50 ML SYRINGE IV PRN (21:19)
[2019-05-20] MEDS ORDERED: ALBUTEROL 2.5 MG/3 ML NEBU IH ONE ×2 (21:19→22:49)
[2019-05-20] MEDS ORDERED: DEXTROSE 50% IN WATER (25GM) 50 ML SYRINGE IV ONE ×2 (21:19→23:20)
[2019-05-20] MEDS ORDERED: SODIUM POLYSTYRENE 15 GM/60 ML ORAL LIQD PO ONE (21:19)
[2019-05-20] MEDS ORDERED: INSULIN REGULAR, HUMAN 100 UNITS/1 ML IV ONE (21:20)
[2019-05-20] MEDS ORDERED: hydrALAZINE 20 MG/1 ML INJ IV PRN (21:57)
[2019-05-20] MEDS ORDERED: ONDANSETRON 4 MG/2 ML INJ IV PRN (21:58)
[2019-05-20] MEDS ORDERED: ACETAMINOPHEN 325 MG TAB PO PRN (21:58)
[2019-05-20] MEDS ORDERED: amLODIPine 10 MG TAB PO ONE (22:01)
--- NOTE | 2019-05-20 22:28 | History and Physical Report ---
<ROBERT GUTIERREZ - Last Filed: 05/20/19 22:22> History of Present Illness Date of examination: 05/20/19 Date of admission: 05/20/2019 Chief complaint: Missed HD for one week , SOB History of present illness: 58-year-old -Iranian female with history of depression, hypertension, ESRD on HD T/Th/S, DVT in the right arm on Coumadin, GERD, and HCV who presents to [facility] ED with complaints of shortness of breath and bilateral lower extremity edema after missing one week of hemodialysis. Patient states that she has been experiencing shortness of breath with activity for the past 3-4 days. She also complains of BLE edema for the past 3 days. Pt stated that her symptoms are due to her missing scheduled HD sessions for the past week. Pt has not been to HD since last week Wednesday (05/13). Pt struggles with depression and states that she was feeling "down" and was unable to leave the house to go to HD. She denies SI/HI. Past History Past Medical History: DVT (Right Arm on Coumadin), ESRD (on HD T/TH/S), GERD, hypertension, other (depression) Past Surgical History: Other (right chest vascath, JAYY AV fistula) Social history: lives with family, other (former smoker) Family history: no significant family history Medications and Allergies Allergies Allergy/AdvReac Type Severity Reaction Status Date / Time No Known Allergies Allergy Verified 05/18/18 18:12 Home Medications Medication Instructions Recorded Confirmed Last Taken Type Allopurinol [Zyloprim] 100 mg PO DAILY #30 tablet 10/29/18 05/20/19 12/09/18 06:00 Rx Latanoprost 0.005% 2 drops OU QHS #1 bottle 10/29/18 05/20/19 12/08/18 21:00 Rx Pantoprazole [Protonix TAB] 40 mg PO QDAY #30 tablet 10/29/18 05/20/19 12/09/18 06:00 Rx amLODIPine 10 mg PO QDAY #30 tablet 10/29/18 05/20/19 12/09/18 06:00 Rx carvediloL [Coreg] 25 mg PO BID #60 tablet 10/29/18 05/20/19 12/09/18 06:00 Rx Valsartan [Diovan] 100 mg PO DAILY 12/01/18 05/20/19 12/09/18 06:00 History Warfarin Sodium [Coumadin] 7.5 mg PO DAILY 12/01/18 05/20/19 12/08/18 20:00 History buPROPion 300 mg PO DAILY 12/01/18 05/20/19 12/09/18 06:00 History Active Meds: Active Medications Acetaminophen (Tylenol) 650 mg PO Q4H PRN PRN Reason: Pain MILD(1-3)/Fever >100.5/DERAS Amlodipine Besylate (Amlodipine) 10 mg PO QDAY [place] Bupropion HCl (Wellbutrin Xl) 300 mg PO DAILY [place] Carvedilol (Coreg) 25 mg PO BID [place] Dextrose (D50w (25gm) Syringe) 50 ml IV Q30MIN PRN; Protocol PRN Reason: Hypoglycemia Heparin Sodium (Porcine) (Heparin) 5,000 unit SUB-Q Q12HR [place] Hydralazine HCl (Apresoline) 10 mg IV Q4HR PRN PRN Reason: Blood Pressure Ondansetron HCl (Zofran) 4 mg IV Q8H PRN PRN Reason: Nausea And Vomiting Pantoprazole Sodium (Protonix) 40 mg PO QDAY [place] Sodium Chloride (Sodium Chloride Flush Syringe 10 Ml) 10 ml IV BID [place] Sodium Chloride (Sodium Chloride Flush Syringe 10 Ml) 10 ml IV PRN PRN PRN Reason: LINE FLUSH Valsartan (Diovan) 100 mg PO DAILY [facility] Review of Systems All systems: negative Cardiovascular: edema (BLE), dyspnea on exertion, high blood pressure Respiratory: dyspnea on exertion Psychiatric: no suicidal ideation, no hallucinations, no sadness/tearfullness Exam - Physical Exam Narrative exam: Physical exam General appearance: Present: No acute distress, alert and oriented 3, well- developed, adult -Iranian female - EENT Eyes: Present: PERRL, EOM intact ENT: hearing intact, normal dentition - Neck Neck: Present: supple, normal ROM - Respiratory Respiratory effort: Non-labored Respiratory: Clear throughout - Cardiovascular Heart rate: 83 (bpm) Rhythm: Sinus rhythm Heart Sounds: Present: S1 & S2. Absent: rub, click - Extremities Extremities: no ischemia, pulses intact, 1+ bilateral lower extremity pitting edema, left upper arm AV fistula - Peripheral Assessment Peripheral Pulses: within normal limits - Abdominal General gastrointestinal: soft, non-tender, normal bowel sounds - Integumentary Integumentary: Present: warm, dry - Musculoskeletal Musculoskeletal: Able to move all extremities -Neurological Neurological: CN II-XII intact - Psychiatric Psychiatric: Appropriate for situation ,cooperative - Constitutional Vitals: Temp Pulse Resp BP Pulse Ox 97.6 F 83 18 178/87 99 05/20/19 15:38 05/20/19 15:38 05/20/19 15:38 05/20/19 15:38 05/20/19 15:38 Results - Labs CBC & Chem 7: 05/20/19 15:52 05/20/19 15:52 Labs: Laboratory Last Values WBC 5.6 K/mm3 (4.5-11.0) 05/20/19 15:52 RBC 4.62 M/mm3 (3.65-5.03) 05/20/19 15:52 Hgb 11.1 gm/dl (10.1-14.3) 05/20/19 15:52 Hct 36.1 % (30.3-42.9) 05/20/19 15:52 MCV 78 fl (79-97) L 05/20/19 15:52 MCH 24 pg (28-32) L 05/20/19 15:52 MCHC 31 % (30-34) 05/20/19 15:52 RDW 17.0 % (13.2-15.2) H 05/20/19 15:52 Plt Count 313 K/mm3 (140-440) 05/20/19 15:52 Lymph % (Auto) 37.5 % (13.4-35.0) H 05/20/19 15:52 Guthrie % (Auto) 7.2 % (0.0-7.3) 05/20/19 15:52 Eos % (Auto) 3.1 % (0.0-4.3) 05/20/19 15:52 Baso % (Auto) 0.7 % (0.0-1.8) 05/20/19 15:52 Lymph # 2.1 K/mm3 (1.2-5.4) 05/20/19 15:52 Guthrie # 0.4 K/mm3 (0.0-0.8) 05/20/19 15:52 Eos # 0.2 K/mm3 (0.0-0.4) 05/20/19 15:52 Baso # 0.0 K/mm3 (0.0-0.1) 05/20/19 15:52 Seg Neutrophils % 51.5 % (40.0-70.0) 05/20/19 15:52 Seg Neutrophils # 2.9 K/mm3 (1.8-7.7) 05/20/19 15:52 Sodium 139 mmol/L (137-145) 05/20/19 15:52 Potassium 5.8 mmol/L (3.6-5.0) H 05/20/19 15:52 Chloride 102.8 mmol/L (98-107) 05/20/19 15:52 Carbon Dioxide 16 mmol/L (22-30) L 05/20/19 15:52 Anion Gap 26 mmol/L 05/20/19 15:52 BUN 76 mg/dL (7-17) H 05/20/19 15:52 Creatinine 8.2 mg/dL (0.7-1.2) H 05/20/19 15:52 Estimated GFR 6 ml/min 05/20/19 15:52 BUN/Creatinine Ratio 9 % 05/20/19 15:52 Glucose 87 mg/dL (65-100) 05/20/19 15:52 Calcium 7.9 mg/dL (8.4-10.2) L 05/20/19 15:52 Phosphorus 5.40 mg/dL (2.5-4.5) H 05/20/19 15:52 Magnesium 1.80 mg/dL (1.7-2.3) 05/20/19 15:52 Total Bilirubin 0.20 mg/dL (0.1-1.2) 05/20/19 15:52 AST 32 units/L (5-40) 05/20/19 15:52 ALT 78 units/L (7-56) H 05/20/19 15:52 Alkaline Phosphatase 119 units/L (35-129) 05/20/19 15:52 Total Creatine Kinase 88 units/L (30-135) 05/20/19 15:52 Total Protein 7.3 g/dL (6.3-8.2) 05/20/19 15:52 Albumin 4.1 g/dL (3.9-5) 05/20/19 15:52 Albumin/Globulin Ratio 1.3 % 05/20/19 15:52 - Imaging and Cardiology Imaging and Cardiology: CXR: FINDINGS: SUPPORT DEVICES: None. HEART / MEDIASTINUM: No significant abnormality. LUNGS / PLEURA: No significant pulmonary or pleural abnormality. No pneumothorax. ADDITIONAL FINDINGS: No significant additional findings. IMPRESSION: 1. No acute findings. No adverse change from the prior exam. Assessment and Plan Assessment and plan: 58-year-old -Iranian female with history of depression, hypertension, ESRD on HD T//S, DVT in the right arm on Coumadin, GERD, and HCV who presents to [facility] ED with complaints of shortness of breath and bilateral lower extremity edema after missing one week of hemodialysis. Hypertensive urgency -BP on admission 196/106 -Hx Hypertension -Continue to monitor BP -Resume home antihypertensive meds to optimize BP -IV antihypertensive when necessary ESRD on HD -T//S -Last dialyzed on 05/13/19 -Pending HD in a.m. -Cr on admission 8.2 -Avoid nephrotoxic agents -Renal dose all meds -Nephrology consulted Fluid overload -Secondary to missed dialysis sessions -Pending HD in a.m. - Continue Supportive care Hyperkalemia -on admission 5.8 -likely due to missed HD sessions -Received hyperkalemic cocktail and Kayexalate in ED -Continue to monitor Hx DVT -Right Arm -On Coumadin Hx depression -Continue antidepressants DVT PPX -On Heparin Advance Directives: No VTE prophylaxis?: Chemical Plan of care discussed with patient/family: Yes <MANI FOOTE - Last Filed: 05/21/19 06:49> History of Present Illness Date of admission: 05/20/19 21:58 Medications and Allergies Active Meds: Active Medications Acetaminophen (Tylenol) 650 mg PO Q4H PRN PRN Reason: Pain MILD(1-3)/Fever >100.5/DERAS Amlodipine Besylate (Amlodipine) 10 mg PO QDAY [place] Bupropion HCl (Wellbutrin Xl) 300 mg PO DAILY [place] Carvedilol (Coreg) 25 mg PO BID [place] Last Admin: 05/20/19 22:51 Dose: 25 mg Documented by: Dextrose (D50w (25gm) Syringe) 50 ml IV Q30MIN PRN; Protocol PRN Reason: Hypoglycemia Heparin Sodium (Porcine) (Heparin) 5,000 unit SUB-Q Q12HR [facility] Last Admin: 05/21/19 00:22 Dose: 5,000 unit Documented by: Hydralazine HCl (Apresoline) 10 mg IV Q4HR PRN PRN Reason: Blood Pressure Ondansetron HCl (Zofran) 4 mg IV Q8H PRN PRN Reason: Nausea And Vomiting Pantoprazole Sodium (Protonix) 40 mg PO QDAY [facility] Sodium Chloride (Sodium Chloride Flush Syringe 10 Ml) 10 ml IV BID [facility] Last Admin: 05/20/19 23:42 Dose: 10 ml Documented by: Sodium Chloride (Sodium Chloride Flush Syringe 10 Ml) 10 ml IV PRN PRN PRN Reason: LINE FLUSH Valsartan (Diovan) 100 mg PO DAILY [facility] Exam - Constitutional Vitals: Temp Pulse Resp BP Pulse Ox 97.2 F L 79 18 179/92 96 05/21/19 04:34 05/21/19 04:34 05/21/19 04:34 05/21/19 04:34 05/21/19 04:34 Results - Labs CBC & Chem 7: 05/20/19 15:52 05/21/19 02:37 Labs: Laboratory Last Values WBC 5.6 K/mm3 (4.5-11.0) 05/20/19 15:52 RBC 4.62 M/mm3 (3.65-5.03) 05/20/19 15:52 Hgb 11.1 gm/dl (10.1-14.3) 05/20/19 15:52 Hct 36.1 % (30.3-42.9) 05/20/19 15:52 MCV 78 fl (79-97) L 05/20/19 15:52 MCH 24 pg (28-32) L 05/20/19 15:52 MCHC 31 % (30-34) 05/20/19 15:52 RDW 17.0 % (13.2-15.2) H 05/20/19 15:52 Plt Count 313 K/mm3 (140-440) 05/20/19 15:52 Lymph % (Auto) 37.5 % (13.4-35.0) H 05/20/19 15:52 Guthrie % (Auto) 7.2 % (0.0-7.3) 05/20/19 15:52 Eos % (Auto) 3.1 % (0.0-4.3) 05/20/19 15:52 Baso % (Auto) 0.7 % (0.0-1.8) 05/20/19 15:52 Lymph # 2.1 K/mm3 (1.2-5.4) 05/20/19 15:52 Guthrie # 0.4 K/mm3 (0.0-0.8) 05/20/19 15:52 Eos # 0.2 K/mm3 (0.0-0.4) 05/20/19 15:52 Baso # 0.0 K/mm3 (0.0-0.1) 05/20/19 15:52 Seg Neutrophils % 51.5 % (40.0-70.0) 05/20/19 15:52 Seg Neutrophils # 2.9 K/mm3 (1.8-7.7) 05/20/19 15:52 Sodium 139 mmol/L (137-145) 05/20/19 15:52 Potassium 4.9 mmol/L (3.6-5.0) 05/21/19 02:37 Chloride 102.8 mmol/L (98-107) 05/20/19 15:52 Carbon Dioxide 16 mmol/L (22-30) L 05/20/19 15:52 Anion Gap 26 mmol/L 05/20/19 15:52 BUN 76 mg/dL (7-17) H 05/20/19 15:52 Creatinine 8.2 mg/dL (0.7-1.2) H 05/20/19 15:52 Estimated GFR 6 ml/min 05/20/19 15:52 BUN/Creatinine Ratio 9 % 05/20/19 15:52 Glucose 123 mg/dL (65-100) H 05/21/19 02:37 POC Glucose 124 (70-105) H 05/21/19 02:18 Calcium 7.9 mg/dL (8.4-10.2) L 05/20/19 15:52 Phosphorus 5.40 mg/dL (2.5-4.5) H 05/20/19 15:52 Magnesium 1.80 mg/dL (1.7-2.3) 05/20/19 15:52 Total Bilirubin 0.20 mg/dL (0.1-1.2) 05/20/19 15:52 AST 32 units/L (5-40) 05/20/19 15:52 ALT 78 units/L (7-56) H 05/20/19 15:52 Alkaline Phosphatase 119 units/L (35-129) 05/20/19 15:52 Total Creatine Kinase 88 units/L (30-135) 05/20/19 15:52 Total Protein 7.3 g/dL (6.3-8.2) 05/20/19 15:52 Albumin 4.1 g/dL (3.9-5) 05/20/19 15:52 Albumin/Globulin Ratio 1.3 % 05/20/19 15:52 Assessment and Plan Assessment and plan: 58-year-old woman with a history of end-stage renal disease on dialysis, hypertension, GERD, right arm DVT, depression, hepatitis C because she missed 2 days of dialysis and complaining of shortness of breath. She went to dialysis today and they sent her here to the emergency room. Patient will receive dialysis in the morning, status post cocktail for hyperkalemia. Follow-up plan as stated above
[2019-05-20] MEDS ORDERED: amLODIPine 10 MG TAB ONE (22:50)
[2019-05-20] MEDS ORDERED: carvediloL 25 MG TAB ONE (22:50)
[2019-05-20] MEDS: carvediloL 25 MG TAB PO SCH (22:51)
[2019-05-20] MEDS ORDERED: INSULIN REGULAR, HUMAN 100 UNITS/1 ML ONE (23:16)
[2019-05-20] MEDS ORDERED: SODIUM BICARB 4.2% 5 MEQ/10 ML SYRINGE ONE (23:17)
[2019-05-20] MEDS ORDERED: HEPARIN 5,000 UNIT/1 ML VIAL ONE (23:55)
[2019-05-21] MEDS: HEPARIN 5,000 UNIT/1 ML VIAL SUB-Q SCH ×3 (00:22→22:09)
[2019-05-21] MEDS ORDERED: DEXTROSE 50% IN WATER (25GM) 50 ML SYRINGE IV ONE (01:01)
--- NOTE | 2019-05-21 09:19 | Progress Note ---
Assessment and Plan Assessment and plan: 58-year-old woman with end-stage renal disease noncompliance with hemodialysis who presents to the hospital after she was sent to the ER from outpatient dialysis center. She is complaining of fluid overload. she had missed 1 week of dialysis. ESRD with fluid overload and hyperkalemia Treat with dialysis, nephrology consulted Continue home meds for chronic conditions History Interval history: Review of systems Constitutional: No fevers, no malaise, no joint pains CVS: No chest pain, no orthopnea, no pedal edema GI: No abdominal pain, no diarrhea, no vomiting, no constipation Respiratory: , no wheezing, no coughing Hospitalist Physical - Physical exam Narrative exam: General.: Appears well, no distress, nontoxic HEENT: Moist mucous membranes, extraocular muscles intact, no lymphadenopathy Neck: supple Cardiac: S1-S2 heard Lungs: Bibasilar Rales Abdomen: soft , nontender, nondistended, bowel sounds positive Extremities: no edema clubbing or cyanosis Skin: no rash or lesions Neurologic: no gross focal deficits Psych: calm, and cooperative - Constitutional Vitals: Temp Pulse Resp BP Pulse Ox 97.2 F L 79 18 179/92 96 05/21/19 04:34 05/21/19 04:34 05/21/19 04:34 05/21/19 04:34 05/21/19 04:34 Results - Labs CBC & Chem 7: 05/22/19 05:37 05/22/19 05:37 Labs: Laboratory Last Values WBC 5.6 K/mm3 (4.5-11.0) 05/20/19 15:52 RBC 4.62 M/mm3 (3.65-5.03) 05/20/19 15:52 Hgb 11.1 gm/dl (10.1-14.3) 05/20/19 15:52 Hct 36.1 % (30.3-42.9) 05/20/19 15:52 MCV 78 fl (79-97) L 05/20/19 15:52 MCH 24 pg (28-32) L 05/20/19 15:52 MCHC 31 % (30-34) 05/20/19 15:52 RDW 17.0 % (13.2-15.2) H 05/20/19 15:52 Plt Count 313 K/mm3 (140-440) 05/20/19 15:52 Lymph % (Auto) 37.5 % (13.4-35.0) H 05/20/19 15:52 [place] % (Auto) 7.2 % (0.0-7.3) 05/20/19 15:52 Eos % (Auto) 3.1 % (0.0-4.3) 05/20/19 15:52 Baso % (Auto) 0.7 % (0.0-1.8) 05/20/19 15:52 Lymph # 2.1 K/mm3 (1.2-5.4) 05/20/19 15:52 [place] # 0.4 K/mm3 (0.0-0.8) 05/20/19 15:52 Eos # 0.2 K/mm3 (0.0-0.4) 05/20/19 15:52 Baso # 0.0 K/mm3 (0.0-0.1) 05/20/19 15:52 Seg Neutrophils % 51.5 % (40.0-70.0) 05/20/19 15:52 Seg Neutrophils # 2.9 K/mm3 (1.8-7.7) 05/20/19 15:52 Sodium 139 mmol/L (137-145) 05/20/19 15:52 Potassium 4.9 mmol/L (3.6-5.0) 05/21/19 02:37 Chloride 102.8 mmol/L (98-107) 05/20/19 15:52 Carbon Dioxide 16 mmol/L (22-30) L 05/20/19 15:52 Anion Gap 26 mmol/L 05/20/19 15:52 BUN 76 mg/dL (7-17) H 05/20/19 15:52 Creatinine 8.2 mg/dL (0.7-1.2) H 05/20/19 15:52 Estimated GFR 6 ml/min 05/20/19 15:52 BUN/Creatinine Ratio 9 % 05/20/19 15:52 Glucose 123 mg/dL (65-100) H 05/21/19 02:37 POC Glucose 124 (70-105) H 05/21/19 02:18 Calcium 7.9 mg/dL (8.4-10.2) L 05/20/19 15:52 Phosphorus 5.40 mg/dL (2.5-4.5) H 05/20/19 15:52 Magnesium 1.80 mg/dL (1.7-2.3) 05/20/19 15:52 Total Bilirubin 0.20 mg/dL (0.1-1.2) 05/20/19 15:52 AST 32 units/L (5-40) 05/20/19 15:52 ALT 78 units/L (7-56) H 05/20/19 15:52 Alkaline Phosphatase 119 units/L (35-129) 05/20/19 15:52 Total Creatine Kinase 88 units/L (30-135) 05/20/19 15:52 Total Protein 7.3 g/dL (6.3-8.2) 05/20/19 15:52 Albumin 4.1 g/dL (3.9-5) 05/20/19 15:52 Albumin/Globulin Ratio 1.3 % 05/20/19 15:52 Active Medications - Current Medications Current Medications: Generic Name Dose Route Start Last Admin Trade Name Freq PRN Reason Stop Dose Admin Acetaminophen 650 mg 05/20/19 21:58 Tylenol PO Q4H PRN Pain MILD(1-3)/Fever >100.5/DERAS Allopurinol 100 mg 05/21/19 10:00 Zyloprim PO DAILY [facility] Amlodipine Besylate 10 mg 05/21/19 10:00 Amlodipine PO QDAY [place] Bupropion HCl 300 mg 05/21/19 10:00 Wellbutrin Xl PO DAILY [facility] Carvedilol 25 mg 05/20/19 22:00 05/20/19 22:51 Coreg PO 25 mg BID [place] Administration Dextrose 50 ml 05/20/19 21:19 D50w (25gm) Syringe IV Q30MIN PRN Hypoglycemia Protocol Heparin Sodium (Porcine) 5,000 unit 05/20/19 22:00 05/21/19 00:22 Heparin SUB-Q 5,000 unit Q12HR [place] Administration Hydralazine HCl 10 mg 05/20/19 21:57 Apresoline IV Q4HR PRN Blood Pressure Latanoprost 2 drops 05/21/19 22:00 Latanoprost 0.005% OU QHS [place] Ondansetron HCl 4 mg 05/20/19 21:58 Zofran IV Q8H PRN Nausea And Vomiting Pantoprazole Sodium 40 mg 05/21/19 10:00 Protonix PO QDAY [place] Sodium Chloride 10 ml 05/20/19 22:00 05/20/19 23:42 Sodium Chloride Flush Syringe 10 Ml IV 10 ml BID [place] Administration Sodium Chloride 10 ml 05/20/19 21:58 Sodium Chloride Flush Syringe 10 Ml IV PRN PRN LINE FLUSH Valsartan 100 mg 05/21/19 10:00 Diovan PO DAILY [place]
[2019-05-21 09:24] LABS: INR 1.57 (0.87-1.13)
[2019-05-21] MEDS ORDERED: VALSARTAN PO SCH (10:00)
[2019-05-21] MEDS ORDERED: BUPROPION 300 MG PO SCH (10:00)
[2019-05-21] MEDS: buPROPion XL 150 MG TAB PO SCH (11:14)
[2019-05-21] MEDS: PANTOPRAZOLE 40 MG TAB PO SCH (11:15)
[2019-05-21] MEDS: allopurinoL 100 MG TAB PO SCH (11:15)
[2019-05-21] MEDS ORDERED: SODIUM CHLORIDE 0.9% 100 ML IV PRN ×2 (11:38→19:44)
[2019-05-21 13:09] LABS: Hepatitis B Surface Antigen Non-Reactive (Negative); Hepatitis C Virus Antibody Reactive (NonReactive)
[2019-05-21] MEDS: amLODIPine 10 MG TAB PO SCH (15:45)
[2019-05-21] MEDS ORDERED: SODIUM CHLORIDE 0.9% 1000 ML 2,000 ML ONE (16:07)
--- NOTE | 2019-05-21 16:18 | Consultation ---
History of Present Illness - Reason for Consult Consult date: 05/21/19 end stage renal disease - History of Present Illness Mrs. Barber is a very pleasant 58yo with ESRD on HD TTS who presented to the ED upon direction of outpatient dialysis clinic as her last treatment was on May 13 She reports SOB and leg edema which have worsened over the past 3 days. Mrs. Barber struggles with depression which impacts her compliance. She is under the care of psychiatrist. Medications were adjusted appx 2 weeks ago. In the ED, labs were notable for K 5.8 and Bicarb 16. Hyperkalemia was medica lly managed overnight. Past History Past Medical History: DVT (Right Arm on Coumadin), ESRD (on HD //), GERD, hypertension, other (depression) Past Surgical History: Other (right chest vascath, JAYY AV fistula) Social history: lives with family, other (former smoker) Family history: no significant family history Medications and Allergies Allergies Allergy/AdvReac Type Severity Reaction Status Date / Time No Known Allergies Allergy Verified 05/18/18 18:12 Home Medications Medication Instructions Recorded Confirmed Last Taken Type Allopurinol [Zyloprim] 100 mg PO DAILY #30 tablet 10/29/18 05/20/19 12/09/18 06:00 Rx Latanoprost 0.005% 2 drops OU QHS #1 bottle 10/29/18 05/20/19 12/08/18 21:00 Rx Pantoprazole [Protonix TAB] 40 mg PO QDAY #30 tablet 10/29/18 05/20/19 12/09/18 06:00 Rx amLODIPine 10 mg PO QDAY #30 tablet 10/29/18 05/20/19 12/09/18 06:00 Rx carvediloL [Coreg] 25 mg PO BID #60 tablet 10/29/18 05/20/19 12/09/18 06:00 Rx Valsartan [Diovan] 100 mg PO DAILY 12/01/18 05/20/19 12/09/18 06:00 History Warfarin Sodium [Coumadin] 7.5 mg PO DAILY 12/01/18 05/20/19 12/08/18 20:00 History buPROPion 300 mg PO DAILY 12/01/18 05/20/19 12/09/18 06:00 History Active Meds: Active Medications Acetaminophen (Tylenol) 650 mg PO Q4H PRN PRN Reason: Pain MILD(1-3)/Fever >100.5/DERAS Allopurinol (Zyloprim) 100 mg PO DAILY [facility] Last Admin: 05/21/19 11:15 Dose: 100 mg Documented by: Amlodipine Besylate (Amlodipine) 10 mg PO QDAY [facility] Last Admin: 05/21/19 15:45 Dose: 10 mg Documented by: Bupropion HCl (Wellbutrin Xl) 300 mg PO DAILY [facility] Last Admin: 05/21/19 11:14 Dose: 300 mg Documented by: Carvedilol (Coreg) 25 mg PO BID [facility] Last Admin: 05/20/19 22:51 Dose: 25 mg Documented by: Dextrose (D50w (25gm) Syringe) 50 ml IV Q30MIN PRN; Protocol PRN Reason: Hypoglycemia Heparin Sodium (Porcine) (Heparin) 5,000 unit SUB-Q Q12HR [facility] Last Admin: 05/21/19 11:15 Dose: 5,000 unit Documented by: Hydralazine HCl (Apresoline) 10 mg IV Q4HR PRN PRN Reason: Blood Pressure Sodium Chloride (Nacl 0.9%) 100 mls @ 999 mls/hr IV VANESSA PRN PRN Reason: Hypotension Latanoprost (Latanoprost 0.005%) 2 drops OU QHS [facility] Ondansetron HCl (Zofran) 4 mg IV Q8H PRN PRN Reason: Nausea And Vomiting Pantoprazole Sodium (Protonix) 40 mg PO QDAY [facility] Last Admin: 05/21/19 11:15 Dose: 40 mg Documented by: Sodium Chloride (Sodium Chloride Flush Syringe 10 Ml) 10 ml IV BID [facility] Last Admin: 05/20/19 23:42 Dose: 10 ml Documented by: Sodium Chloride (Sodium Chloride Flush Syringe 10 Ml) 10 ml IV PRN PRN PRN Reason: LINE FLUSH Valsartan (Diovan) 100 mg PO DAILY [facility] Warfarin Sodium (Coumadin) 7.5 mg PO DAILY@1700 [facility] Review of Systems All systems: negative Exam - Vital Signs Vital signs: Vital Signs Temp Pulse Resp BP Pulse Ox 97.6 F 83 18 178/87 99 05/20/19 15:38 05/20/19 15:38 05/20/19 15:38 05/20/19 15:38 05/20/19 15:38 - General Appearance General appearance: well-developed, well-nourished EENT: ATNC Respiratory: Clear to Ascultation Heart: regular, S1S2 Gastrointestinal: Present: normal. Absent: tenderness, distended Integumentary: no rash, warm and dry Neurologic: alert and oriented x3 Musculoskeletal: Present: other (+Edema) Psychiatric: cooperative Results - Lab Results 05/20/19 15:52 05/21/19 02:37 Most recent lab results Calcium 7.9 mg/dL (8.4-10.2) L 05/20/19 15:52 Phosphorus 5.40 mg/dL (2.5-4.5) H 05/20/19 15:52 Magnesium 1.80 mg/dL (1.7-2.3) 05/20/19 15:52 Assessment and Plan Impression: * End stage renal disease * Hyperkalemia * Metabolic acidosis * Peripheral edema * Chronic depression * Hx of right UE acute DVT on chronic anticoagulation --right subclavian, axillary, upper brachial * Anemia secondary to ESRD * Secondary hyperparathyroidism * Hypertension Plan: * Hemodialysis today and tomorrow. Will resume TTS hemodialysis schedule thereafter * UF as tolerated * Continue antiHTN medications * Epogen TIW prn * Renal diet * Does not require binders with meals * AM labs
[2019-05-21] MEDS ORDERED: WARFARIN 7.5 MG TAB PO SCH (17:00)
[2019-05-21] MEDS: carvediloL 25 MG TAB PO SCH ×2 (17:59→22:09)
[2019-05-21] MEDS: VALSARTAN 40 MG TAB PO SCH (18:00)
[2019-05-21] MEDS ORDERED: LATANOPROST 0.005% OPHTH SOLN 2.5 ML OU SCH (22:00)
[2019-05-22 06:06] LABS: Basophils % (Auto) 0.8 % (0.0-1.8); Eosinophils # (Auto) 0.2 K/mm3 (0.0-0.4); Eosinophils % (Auto) 4.7 % (0.0-4.3); Hematocrit 33.6 % (30.3-42.9); Hemoglobin 10.5 gm/dl (10.1-14.3); Lymphocytes # (Auto) 1.7 K/mm3 (1.2-5.4); Lymphocytes % (Auto) 38.3 % (13.4-35.0); Mean Corpuscular HGB Conc 31 % (30-34); Mean Corpuscular Volume 77 fl (79-97); Monocytes # (Auto) 0.4 K/mm3 (0.0-0.8); Monocytes % (Auto) 9.8 % (0.0-7.3); Platelet Count 227 K/mm3 (140-440); Red Blood Count 4.34 M/mm3 (3.65-5.03)
[2019-05-22 06:11] LABS: INR 1.3 (0.87-1.13)
[2019-05-22 06:27] LABS: Calcium 7.8 mg/dL (8.4-10.2)
--- NOTE | 2019-05-22 11:19 | Discharge Summary ---
Providers - Providers Date of Admission: 05/20/19 21:58 Attending physician: KRISTINA PEREYRA MD 05/20/19 20:48 Consult to Physician [CONS] Urgent Comment: Dr. Beltre spoke with Dr. Sehll @ [phone] Consulting Provider: STEPHEN ARAMBULA Physician Instructions: Reason For Exam: esrd 05/20/19 21:55 Consult to Physician [CONS] Routine Comment: Consulting Provider: STEPHEN ARAMBULA Physician Instructions: Reason For Exam: ESRD on HD needs HD (last dialyzed on 05/13/19) 05/21/19 13:01 Consult to Mental Health [CONS] Routine Reason For Exam: behavioral disturbance Place consult to:: the medical center Notified:: mental health Phone number called:: [phone] Was contact made?: Yes If yes, spoke with:: natacha Time called:: 13:36 Primary care physician: СВЕТЛАНА PRO MD Hospitalization Condition: Stable Procedures: 58-year-old woman with end-stage renal disease noncompliance with hemodialysis who presents to the hospital after she was sent to the ER from outpatient dialysis center. She is complaining of fluid overload. she had missed 1 week of dialysis. ESRD with fluid overload and hyperkalemia Treated with dialysis, nephrology consulted Adherence with dialysis Patient was counseled. Preventative health counseling performed for 17 minutes Continue home meds for chronic conditions Disposition: DC-01 TO HOME OR SELFCARE Time spent for discharge: 33 mins Core Measure Documentation - Palliative Care Palliative Care/ Comfort Measures: Not Applicable - Core Measures Any of the following diagnoses?: none Exam - Constitutional Vitals: Temp Pulse Resp BP Pulse Ox 98.3 F 78 20 153/69 95 05/21/19 19:45 05/22/19 03:00 05/21/19 19:45 05/21/19 22:09 05/21/19 19:45 General appearance: Present: no acute distress, well-nourished - EENT Eyes: Present: PERRL ENT: hearing intact, clear oral mucosa - Neck Neck: Present: supple, normal ROM - Respiratory Respiratory effort: normal Respiratory: bilateral: CTA - Cardiovascular Heart Sounds: Present: S1 & S2. Absent: rub, click - Extremities Extremities: pulses symmetrical, No edema Peripheral Pulses: within normal limits - Abdominal General gastrointestinal: Present: soft, non-tender, non-distended, normal bowel sounds Female genitourinary: Present: normal - Integumentary Integumentary: Present: clear, warm, dry - Musculoskeletal Musculoskeletal: gait normal, strength equal bilaterally - Psychiatric Psychiatric: appropriate mood/affect, intact judgment & insight - Neurologic Neurologic: CNII-XII intact, moves all extremities Plan Follow up with: [facility] JOHNIE [Referring] - 3-5 Days JAYME RAYMUNDO MD [Staff Physician] - 7 Days Forms: Warfarin Discharge Instruction
[2019-05-22] MEDS ORDERED: SODIUM CHLORIDE*PRIMING MACHINE ONLY FOR DIALYSIS MC ONE (13:26)
[2019-05-22] MEDS: carvediloL 25 MG TAB PO SCH (15:41)
[2019-05-22] MEDS: allopurinoL 100 MG TAB PO SCH (15:41)
[2019-05-22] MEDS: buPROPion XL 150 MG TAB PO SCH (15:41)
[2019-05-22] MEDS: amLODIPine 10 MG TAB PO SCH (15:42)
[2019-05-22] MEDS: PANTOPRAZOLE 40 MG TAB PO SCH (15:42)
[2019-05-22] MEDS: VALSARTAN 40 MG TAB PO SCH (15:42)
[2019-05-22 15:49] VITALS: BP 190/98
[2019-05-22] MEDS ORDERED: WARFARIN 10 MG TAB PO SCH (17:00)
--- NOTE | 2019-05-22 17:29 | Progress Note ---
Assessment and Plan - Patient Problems (1) Acidosis Status: Acute Plan to address problem: Metabolic acidosis mild monitor (2) ESRD (end stage renal disease) Status: Acute Plan to address problem: End-stage renal disease continue hemodialysis (3) HTN (hypertension) Status: Acute Plan to address problem: Hypertension controlled continue medications (4) Anemia Status: Acute Plan to address problem: Mild anemia hemoglobin Monitor CBC 10.5 g per DL Subjective Interval history: 58-year-old with end-stage renal disease on hemodialysis Wednesday admitted with missed hemodialysis I attest I saw the patient on dialysis Objective - Vital Signs Vital signs: Vital Signs - 12hr 05/22/19 05/22/19 05/22/19 10:00 10:25 10:30 Temperature 97.7 F Pulse Rate 78 81 77 Respiratory 18 Rate Blood Pressure 164/68 145/82 155/93 Blood Pressure [Right] 05/22/19 05/22/19 05/22/19 10:45 11:00 11:15 Temperature Pulse Rate 76 73 77 Respiratory Rate Blood Pressure 178/103 189/113 170/98 Blood Pressure [Right] 05/22/19 05/22/19 05/22/19 11:30 11:45 12:00 Temperature Pulse Rate 92 H 99 H 93 H Respiratory Rate Blood Pressure 203/102 161/91 167/99 Blood Pressure [Right] 05/22/19 05/22/19 05/22/19 12:15 12:25 12:30 Temperature 98.2 F Pulse Rate 94 H 99 H 82 Respiratory 20 Rate Blood Pressure 149/112 177/100 159/97 Blood Pressure [Right] 05/22/19 05/22/19 12:45 15:48 Temperature Pulse Rate 99 H 97 H Respiratory Rate Blood Pressure 177/100 Blood Pressure 190/98 [Right] - General Appearance General appearance: well-developed, well-nourished EENT: ATNC, PERRL Neck: no JVD Respiratory: Present: Clear to Ascultation Cardiology: regular, S1S2 Gastrointestinal: normal, normoactive bowel sounds Integumentary: no rash Neurologic: alert and oriented x3, CN 3-12 intact Musculoskeletal: deferred Psychiatric: mood/affect appropriate - Lab 05/22/19 05:37 05/22/19 05:37 Most recent lab results Calcium 7.8 mg/dL (8.4-10.2) L 05/22/19 05:37 Phosphorus 5.40 mg/dL (2.5-4.5) H 05/20/19 15:52 Magnesium 1.80 mg/dL (1.7-2.3) 05/20/19 15:52 - Imaging Chest x-ray: image reviewed Medications & Allergies - Medications Allergies/Adverse Reactions: Allergies No Known Allergies Allergy (Verified 05/18/18 18:12) Home Medications: Home Medications Medication Instructions Recorded Confirmed Last Taken Type Allopurinol [Zyloprim] 100 mg PO DAILY #30 tablet 10/29/18 05/20/19 12/09/18 06:00 Rx Latanoprost 0.005% 2 drops OU QHS #1 bottle 10/29/18 05/20/19 12/08/18 21:00 Rx Pantoprazole [Protonix TAB] 40 mg PO QDAY #30 tablet 10/29/18 05/20/19 12/09/18 06:00 Rx amLODIPine 10 mg PO QDAY #30 tablet 10/29/18 05/20/19 12/09/18 06:00 Rx carvediloL [Coreg] 25 mg PO BID #60 tablet 10/29/18 05/20/19 12/09/18 06:00 Rx Valsartan [Diovan] 100 mg PO DAILY 12/01/18 05/20/19 12/09/18 06:00 History Warfarin Sodium [Coumadin] 7.5 mg PO DAILY 12/01/18 05/20/19 12/08/18 20:00 History buPROPion 300 mg PO DAILY 12/01/18 05/20/19 12/09/18 06:00 History
== END 2019-05-22 16:10 | disposition home or self-care (01) ==
LOC: ED 15:31 → 4A 21:58 → 3A 05-21 23:39
PROVIDERS: ADMIT Internal Medicine; ATTEND Internal Medicine
DX: I16.0 Hypertensive urgency (principal); I12.0 Hypertensive chronic kidney disease with stage 5 chronic kidney disease or end stage renal disease; N18.6 End stage renal disease; E87.70 Fluid overload, unspecified; K21.9 Gastro-esophageal reflux disease without esophagitis; E87.5 Hyperkalemia; F32.9 Major depressive disorder, single episode, unspecified; D64.9 Anemia, unspecified; Z99.2 Dependence on renal dialysis; Z91.15 Patient's noncompliance with renal dialysis; Z79.01 Long term (current) use of anticoagulants; Z86.19 Personal history of other infectious and parasitic diseases
CPT/HCPCS: 36415; 71045; 80048; 80053; 80074; 82550; 82947; 82962; 83735; 84100; 84132; 85025; 85610; 93005; 93010; 94644; 96372; 96374; 96375; 96376; 99284; G0378; J1644; J7030; G0257; J1815

== ENCOUNTER 2019-07-10 10:44 | Observation (INO) | payer MEDICARE ==
--- NOTE | 2019-07-10 11:40 | Emergency Department Report ---
Blank Doc - Documentation Documentation: 58-year-old female that presents with missed dialysis x7 days. This initial assessment/diagnostic orders/clinical plan/treatment(s) is/are subject to change based on patient's health status, clinical progression and re- assessment by fellow clinical providers in the ED. Further treatment and workup at subsequent clinical providers discretion. Patient/guardians urged not to elope from the ED as their condition may be serious if not clinically assessed and managed. Initial orders include: 1- Patient sent tp MAIN ED for further evaluation and treatment 2- labs
[2019-07-10 13:02] LABS: Hematocrit 40.2 % (30.3-42.9); Hemoglobin 12.4 gm/dl (10.1-14.3); Mean Corpuscular HGB Conc 31 % (30-34); Mean Corpuscular Volume 80 fl (79-97); Platelet Count 277 K/mm3 (140-440); Red Blood Count 5.03 M/mm3 (3.65-5.03); Red Cell Distribution Width 17.5 % (13.2-15.2)
[2019-07-10 13:16] LABS: Calcium 8.9 mg/dL (8.4-10.2)
[2019-07-10] MEDS ORDERED: INSULIN REGULAR, HUMAN 100 UNITS/1 ML IV ONE (13:26)
--- NOTE | 2019-07-10 13:26 | Emergency Department Report ---
ED General Adult HPI - General Chief complaint: Medical Clearance Stated complaint: DIALYSIS Time Seen by Provider: 07/10/19 11:38 Source: patient Mode of arrival: Ambulatory Limitations: No Limitations - History of Present Illness Initial comments: 58-year-old female, history of ESRD with Dxpwlum-Mlgtxvct-Ehsnwqej schedule presents to ED requesting dialysis. Patient last dialyzed 9 days ago. She states she was told to come to the ED to be dialyzed. She denies shortness of breath. Nephrology: Dr Shell -: days(s) (9) Associated Symptoms: denies: chest pain, nausea/vomiting, shortness of breath - Related Data Home Medications Medication Instructions Recorded Confirmed Last Taken Valsartan [Diovan] 160 mg PO DAILY 12/01/18 07/10/19 12/09/18 06:00 Warfarin Sodium [Coumadin] 7.5 mg PO DAILY 12/01/18 07/10/19 12/08/18 20:00 buPROPion 300 mg PO DAILY 12/01/18 07/10/19 12/09/18 06:00 Brimonidine/Timolol 0.2-0.5% 1 drop BID 07/10/19 07/10/19 Unknown [Combigan 0.2-0.5%] Ergocalciferol [Vitamin D2] 1 tab PO 1XW 07/10/19 07/10/19 Unknown Methylphenidate 20 mg PO BID 07/10/19 07/10/19 Unknown Sodium Bicarbonate 2 tab PO BID 07/10/19 07/10/19 Unknown Tums 500MG CHEW 1 tab PO AC 07/10/19 07/10/19 Unknown Venlafaxine HCl [Venlafaxine] 100 mg PO BID 07/10/19 07/10/19 Unknown Vit B Comp No.3/Folic/C/Biotin 1 tab PO DAILY 07/10/19 07/10/19 Unknown [Jane-Jagruti Rx Tablet] buPROPion XL [Wellbutrin XL] 1 tab PO DAILY 07/10/19 07/10/19 Unknown lamoTRIgine [LaMICtal] 1 tab PO DAILY 07/10/19 07/10/19 Unknown Previous Rx's Medication Instructions Recorded Last Taken Type Latanoprost 0.005% 2 drops OU QHS #1 bottle 10/29/18 12/08/18 21:00 Rx Pantoprazole [Protonix TAB] 40 mg PO QDAY #30 tablet 10/29/18 12/09/18 06:00 Rx allopurinoL [Zyloprim] 100 mg PO DAILY #30 tablet 10/29/18 12/09/18 06:00 Rx amLODIPine 10 mg PO QDAY #30 tablet 10/29/18 12/09/18 06:00 Rx carvediloL [Coreg] 25 mg PO BID #60 tablet 10/29/18 12/09/18 06:00 Rx Allergies Allergy/AdvReac Type Severity Reaction Status Date / Time No Known Allergies Allergy Verified 05/18/18 18:12 ED Review of Systems ROS: Stated complaint: DIALYSIS/POTASSIUM LOW Other details as noted in HPI Comment: All other systems reviewed and negative Respiratory: denies: shortness of breath Cardiovascular: denies: chest pain Gastrointestinal: denies: vomiting ED Past Medical Hx - Past Medical History Previous Medical History?: Yes Hx Hypertension: Yes (X 30 YRS) Hx Heart Attack/AMI: No Hx Congestive Heart Failure: No Hx Diabetes: No Hx Deep Vein Thrombosis: Yes (RT ARM 10/2018- ON COUMADIN) Hx GERD: Yes Hx Liver Disease: Yes (HCV) Hx Renal Disease: Yes (HD T,,Wednesday) Hx Seizures: No Hx Asthma: No Hx COPD: No Hx HIV: No Additional medical history: depression - Surgical History Past Surgical History?: Yes Additional Surgical History: JAYY graft, Rt Vascath - Social History Smoking Status: Never Smoker Substance Use Type: None - Medications Home Medications: Home Medications Medication Instructions Recorded Confirmed Last Taken Type Latanoprost 0.005% 2 drops OU QHS #1 bottle 10/29/18 07/10/19 12/08/18 21:00 Rx Pantoprazole [Protonix TAB] 40 mg PO QDAY #30 tablet 10/29/18 07/10/19 12/09/18 06:00 Rx allopurinoL [Zyloprim] 100 mg PO DAILY #30 tablet 10/29/18 07/10/19 12/09/18 06:00 Rx amLODIPine 10 mg PO QDAY #30 tablet 10/29/18 07/10/19 12/09/18 06:00 Rx carvediloL [Coreg] 25 mg PO BID #60 tablet 10/29/18 07/10/19 12/09/18 06:00 Rx Valsartan [Diovan] 160 mg PO DAILY 12/01/18 07/10/19 12/09/18 06:00 History Warfarin Sodium [Coumadin] 7.5 mg PO DAILY 12/01/18 07/10/19 12/08/18 20:00 History buPROPion 300 mg PO DAILY 12/01/18 07/10/19 12/09/18 06:00 History Brimonidine/Timolol 0.2-0.5% 1 drop BID 07/10/19 07/10/19 Unknown History [Combigan 0.2-0.5%] Ergocalciferol [Vitamin D2] 1 tab PO 1XW 07/10/19 07/10/19 Unknown History Methylphenidate 20 mg PO BID 07/10/19 07/10/19 Unknown History Sodium Bicarbonate 2 tab PO BID 07/10/19 07/10/19 Unknown History Tums 500MG CHEW 1 tab PO AC 07/10/19 07/10/19 Unknown History Venlafaxine HCl [Venlafaxine] 100 mg PO BID 07/10/19 07/10/19 Unknown History Vit B Comp No.3/Folic/C/Biotin 1 tab PO DAILY 07/10/19 07/10/19 Unknown History [Jane-Jagruti Rx Tablet] buPROPion XL [Wellbutrin XL] 1 tab PO DAILY 07/10/19 07/10/19 Unknown History lamoTRIgine [LaMICtal] 1 tab PO DAILY 07/10/19 07/10/19 Unknown History ED Physical Exam - General Limitations: No Limitations General appearance: alert, in no apparent distress - Head Head exam: Present: atraumatic, normocephalic - Eye Eye exam: Present: normal appearance, EOMI - ENT ENT exam: Present: mucous membranes moist - Neck Neck exam: Present: normal inspection - Respiratory Respiratory exam: Present: normal lung sounds bilaterally. Absent: respiratory distress - Cardiovascular Cardiovascular Exam: Present: normal rhythm, tachycardia - GI/Abdominal GI/Abdominal exam: Present: soft. Absent: distended, tenderness - Extremities Exam Extremities exam: Present: normal inspection - Neurological Exam Neurological exam: Present: alert, oriented X3 - Psychiatric Psychiatric exam: Present: normal affect, normal mood - Skin Skin exam: Present: warm, dry, intact, normal color ED Course Vital Signs 07/10/19 07/10/19 07/10/19 10:58 13:36 13:46 Temperature 97.9 F Pulse Rate 109 H 74 74 Pulse Rate [ Anterior Bilateral Throughout] Respiratory 16 10 L Rate Respiratory Rate [Anterior Bilateral Throughout] Blood Pressure 231/119 186/100 O2 Sat by Pulse 93 99 Oximetry 07/10/19 07/10/19 07/10/19 14:16 14:30 15:08 Temperature Pulse Rate 70 70 Pulse Rate [ 126 H Anterior Bilateral Throughout] Respiratory 12 15 Rate Respiratory 19 Rate [Anterior Bilateral Throughout] Blood Pressure 200/90 208/104 O2 Sat by Pulse 98 99 Oximetry - Consultations Consultation #1: 07/10/19 13:48 Spoke w/ [facility] midlevel provider for nephrology group. States they will get pt dialyzed. ED Medical Decision Making - Lab Data Result diagrams: 07/10/19 12:22 07/11/19 04:08 - EKG Data -: EKG Interpreted by Ks EKG shows normal: sinus rhythm, axis, intervals, QRS complexes Rate: normal - EKG Data Interpretation: other (peaked T waves present) - Medical Decision Making Pt has not been dialyzed in 9 days. Potassium elevated. EKG shows peaked T waves. Pt given albuterol, calcium gluconate, insulin, D50, kayexalate. Pt is in no resp distress, lungs clear, O2 sats normal. Spoke w/ nephrology so that pt may be dialyzed. Pt will be admitted by hospitalist, Dr Howell. - Differential Diagnosis hyperkalemia Critical Care Time: Yes Critical care time in (mins) excluding proc time.: 35 Critical care attestation.: If time is entered above; I have spent that time in minutes in the direct care of this critically ill patient, excluding procedure time. Critical Care Time: 35 min ED Disposition Clinical Impression: ESRD needing dialysis, Acute hyperkalemia, Hyperkalemia, Uncontrolled hypertension Disposition: OP ADMIT IP TO THIS HOSP Is pt being admited?: Yes Condition: Stable Time of Disposition: 13:49
[2019-07-10] MEDS ORDERED: DEXTROSE 50% IN WATER (25GM) 50 ML SYRINGE IV ONE (13:27)
[2019-07-10] MEDS ORDERED: SODIUM POLYSTYRENE 15 GM/60 ML ORAL LIQD PO ONE (13:27)
[2019-07-10] MEDS ORDERED: CALCIUM GLUCONATE 1,000 MG in SODIUM CHLORIDE 0.9% 100 ML IV ONE (13:30)
[2019-07-10] MEDS ORDERED: ALBUTEROL 2.5 MG/3 ML NEBU IH ONE (13:51)
[2019-07-10] MEDS ORDERED: SODIUM CHLORIDE 0.9% 100 ML IV PRN (14:19)
[2019-07-10] MEDS ORDERED: ACETAMINOPHEN 325 MG TAB PO PRN (14:35)
[2019-07-10] MEDS ORDERED: ONDANSETRON 4 MG/2 ML INJ IV PRN (14:35)
[2019-07-10] MEDS ORDERED: ALBUTEROL 2.5 MG/3 ML NEBU IH PRN (14:35)
--- NOTE | 2019-07-10 14:37 | History and Physical Report ---
History of Present Illness Chief complaint: I need dialysis, I felt like I could make it without it History of present illness: 58 YO Female with ESRD on HD(T,R,Sa), HTN, Depression, RUE DVT on therapeutic anticoagulation, HCV presents to ED for evaluation. Pt states that she has not undergone her scheduled dialysis sessions for the past 1 week. Patient reports that "I felt like I could make it without having dialysis". Pt also acknowledges feeling depressed. Pt transported to [facility] via private vehicle. Patient seen and evaluated in ED and found to have ESRD, Acidosis, hyperkalemia, and Fluid Overload suspected secondary to noncompliance. Nephrology consulted for urgent dialysis. Pt denies fever, chills, CP, Palpitations, NVD, Trauma, SI/HI, BRBPR, Unintentional Weight loss, night sweats, or recent ill contacts. Pt admitted to medical floor for medical stabilization due to increased risk of cardiorenal decompensation. Prior admission on 05/20/2019 reviewed. All listed medication reconciled at time of admission. Advanced care planning conducted in ED. Past History Past Medical History: ESRD, hepatitis, hypertension, other (See HPI) Past Surgical History: Other (Dialysis access) Social history: . denies: smoking, alcohol abuse, prescription drug abuse Family history: diabetes, hypertension Medications and Allergies Allergies Allergy/AdvReac Type Severity Reaction Status Date / Time No Known Allergies Allergy Verified 05/18/18 18:12 Home Medications Medication Instructions Recorded Confirmed Last Taken Type Latanoprost 0.005% 2 drops OU QHS #1 bottle 10/29/18 05/20/19 12/08/18 21:00 Rx Pantoprazole [Protonix TAB] 40 mg PO QDAY #30 tablet 10/29/18 05/20/19 12/09/18 06:00 Rx allopurinoL [Zyloprim] 100 mg PO DAILY #30 tablet 10/29/18 05/20/19 12/09/18 06:00 Rx amLODIPine 10 mg PO QDAY #30 tablet 10/29/18 05/20/19 12/09/18 06:00 Rx carvediloL [Coreg] 25 mg PO BID #60 tablet 10/29/18 05/20/19 12/09/18 06:00 Rx Valsartan [Diovan] 100 mg PO DAILY 12/01/18 05/20/19 12/09/18 06:00 History Warfarin Sodium [Coumadin] 7.5 mg PO DAILY 12/01/18 05/20/19 12/08/18 20:00 Hist ory buPROPion 300 mg PO DAILY 12/01/18 05/20/19 12/09/18 06:00 History Active Meds: Active Medications Acetaminophen (Tylenol) 650 mg PO Q4H PRN PRN Reason: Pain MILD(1-3)/Fever >100.5/DERAS Albuterol (Proventil) 2.5 mg IH Q4HRT PRN PRN Reason: Shortness Of Breath Sodium Chloride (Nacl 0.9%) 100 mls @ 999 mls/hr IV VANESSA PRN PRN Reason: Hypotension Ondansetron HCl (Zofran) 4 mg IV Q8H PRN PRN Reason: Nausea And Vomiting Sodium Chloride (Sodium Chloride Flush Syringe 10 Ml) 10 ml IV BID [place] Sodium Chloride (Sodium Chloride Flush Syringe 10 Ml) 10 ml IV PRN PRN PRN Reason: LINE FLUSH Review of Systems Constitutional: fatigue, weakness, other (I need dialysis), no weight loss, no fever, no chills Ears, nose, mouth and throat: no ear pain, no ear discharge, no tinnitis, no nose pain, no nasal congestion Breasts: no change in shape, no swelling, no mass Cardiovascular: no chest pain, no edema Respiratory: no cough, no cough with sputum, no excessive sputum, no hemoptysis, no shortness of breath Gastrointestinal: no abdominal pain, no nausea, no vomiting, no diarrhea, no constipation Genitourinary Female: no pelvic pain, no flank pain, no menorrhagia, no urinary frequency, no urgency Rectal: no pain, no incontinence Musculoskeletal: no neck stiffness Integumentary: no rash, no pruritis, no redness, no sores, no wounds Neurological: no head injury, no transient paralysis, no weakness, no numbness, no tingling, no syncope Psychiatric: depression, no anxiety, no change in sleep habits, no insomnia, no change in appetite, no suicidal ideation Endocrine: no heat intolerance, no polyphagia, no polydipsia, no polyuria Hematologic/Lymphatic: no easy bruising, no easy bleeding, no lymphadenopathy Allergic/Immunologic: no allergic rhinitis, no persistent infections, no anaphylaxis Exam - Constitutional Vitals: Temp Pulse Resp BP Pulse Ox 97.9 F 74 10 L 186/100 99 07/10/19 10:58 07/10/19 13:46 07/10/19 13:46 07/10/19 13:46 07/10/19 13:46 General appearance: Present: mild distress - EENT Eyes: Present: PERRL ENT: hearing intact, clear oral mucosa - Neck Neck: Present: supple, normal ROM - Respiratory Respiratory effort: normal Respiratory: bilateral: CTA - Cardiovascular Heart Sounds: Present: S1 & S2. Absent: rub, click - Extremities Extremities: pulses symmetrical, No edema Peripheral Pulses: within normal limits - Abdominal General gastrointestinal: Present: soft, non-tender, non-distended, normal bowel sounds Female genitourinary: Present: normal - Integumentary Integumentary: Present: clear, warm, dry - Musculoskeletal Musculoskeletal: gait normal, strength equal bilaterally - Psychiatric Psychiatric: appropriate mood/affect, intact judgment & insight - Neurologic Neurologic: CNII-XII intact, moves all extremities Results - Labs CBC & Chem 7: 07/10/19 12:22 07/10/19 12:22 Labs: Abnormal lab results 07/10/19 07/10/19 Range/Units 12:22 12:22 MCH 25 L (28-32) pg RDW 17.5 H (13.2-15.2) % Potassium 6.4 H* (3.6-5.0) mmol/L Carbon Dioxide 14 L (22-30) mmol/L BUN 87 H (7-17) mg/dL Creatinine 10.2 H (0.7-1.2) mg/dL Assessment and Plan - Patient Problems (1) ESRD needing dialysis Current Visit: Yes Status: Acute Plan to address problem: Strict I's/O, daily weight, BMP, nephrology consulted in ED, dialysis as per renal team. Avoid nephrotoxic agents, supportive care. (2) Advance care planning Current Visit: Yes Status: Acute Plan to address problem: Patient is full code, disease education conducted, patient acknowledges understanding and agreement with care plan. (3) Noncompliance of patient with renal dialysis Current Visit: Yes Status: Acute Plan to address problem: Behavior change counseling. Patient counseled regarding noncompliance with d ialysis. Patient knowledge understanding risks of recurrent noncompliance. +15 minutes (4) Hyperkalemia Current Visit: Yes Status: Acute Plan to address problem: Urgent dialysis, no EKG changes. Calcium gluconate, Kayexalate. (5) Hypertensive urgency Current Visit: Yes Status: Acute Plan to address problem: Monitor blood pressure every shift, resume prehospital antihypertensive therapy, IV hydralazine as needed for systolic blood pressure greater than 155. (6) Acidosis Current Visit: No Status: Acute Plan to address problem: IV bicarbonate therapy, urgent dialysis. Repeat BMP, (7) Depressed mood Current Visit: Yes Status: Acute Plan to address problem: Patient acknowledges anhedonia, feeling helpless and hopeless: Psychiatry consulted. (8) DVT prophylaxis Current Visit: Yes Status: Acute Plan to address problem: SCD to bilateral lower extremities while in bed, patient is ambulatory.
[2019-07-10 15:17] LABS: Hepatitis B Surface Antigen Non-Reactive (Negative); Hepatitis C Virus Antibody Reactive (NonReactive)
[2019-07-10] MEDS ORDERED: VALSARTAN 160 MG PO SCH (20:30)
[2019-07-10] MEDS: amLODIPine 10 MG TAB PO SCH (20:54)
[2019-07-10] MEDS: VALSARTAN 160MG TAB PO SCH (20:54)
[2019-07-10] MEDS: carvediloL 25 MG TAB PO SCH (22:15)
[2019-07-11 05:24] LABS: Calcium 9.1 mg/dL (8.4-10.2)
[2019-07-11] MEDS: VALSARTAN 160MG TAB PO SCH (10:13)
[2019-07-11] MEDS: amLODIPine 10 MG TAB PO SCH (10:13)
[2019-07-11] MEDS: carvediloL 25 MG TAB PO SCH (10:14)
--- NOTE | 2019-07-11 10:38 | Consultation ---
History of Present Illness - Reason for Consult Consult date: 07/11/19 end stage renal disease, hyperkalemia, metabolic acidosis, accelerated hypertension Requesting physician: RAYRAY RAZA - History of Present Illness 58-year-old female, history of ESRD with Hhweqbh-Vstlhxcb-Eorsfnap schedule presents to ED requesting dialysis. Patient last dialyzed 9 days ago. She states she was told to come to the ED to be dialyzed. She denies shortness of breath. Nephrology: Dr Shell -: days(s) (9) Associated Symptoms: denies: chest pain, nausea/vomiting, shortness of breath ROS: Stated complaint: DIALYSIS/POTASSIUM high Other details as noted in HPI Comment: All other systems reviewed and negative Respiratory: denies: shortness of breath Cardiovascular: denies: chest pain Gastrointestinal: denies: vomiting - Past Medical History Previous Medical History?: Yes Hx Hypertension: Yes (X 30 YRS) Hx Heart Attack/AMI: No Hx Congestive Heart Failure: No Hx Diabetes: No Hx Deep Vein Thrombosis: Yes (RT ARM 10/2018- ON COUMADIN) Hx GERD: Yes Hx Liver Disease: Yes (HCV) Hx Renal Disease: Yes (HD T,,Wednesday) Hx Seizures: No Hx Asthma: No Hx COPD: No Hx HIV: No Additional medical history: depression - Surgical History Past Surgical History?: Yes Additional Surgical History: JAYY graft, Rt Vascath - Social History Smoking Status: Never Smoker Substance Use Type: None Past History Past Medical History: ESRD, hepatitis, hypertension, other (See HPI) Past Surgical History: Other (Dialysis access) Social history: . denies: smoking, alcohol abuse, prescription drug abuse Family history: diabetes, hypertension Medications and Allergies Allergies Allergy/AdvReac Type Severity Reaction Status Date / Time No Known Allergies Allergy Verified 05/18/18 18:12 Home Medications Medication Instructions Recorded Confirmed Last Taken Type Latanoprost 0.005% 2 drops OU QHS #1 bottle 10/29/18 07/10/19 12/08/18 21:00 Rx Pantoprazole [Protonix TAB] 40 mg PO QDAY #30 tablet 10/29/18 07/10/19 12/09/18 06:00 Rx allopurinoL [Zyloprim] 100 mg PO DAILY #30 tablet 10/29/18 07/10/19 12/09/18 06:00 Rx amLODIPine 10 mg PO QDAY #30 tablet 10/29/18 07/10/19 12/09/18 06:00 Rx carvediloL [Coreg] 25 mg PO BID #60 tablet 10/29/18 07/10/19 12/09/18 06:00 Rx Valsartan [Diovan] 160 mg PO DAILY 12/01/18 07/10/19 12/09/18 06:00 History Warfarin Sodium [Coumadin] 7.5 mg PO DAILY 12/01/18 07/10/19 12/08/18 20:00 History buPROPion 300 mg PO DAILY 12/01/18 07/10/19 12/09/18 06:00 History Brimonidine/Timolol 0.2-0.5% 1 drop BID 07/10/19 07/10/19 Unknown History [Combigan 0.2-0.5%] Ergocalciferol [Vitamin D2] 1 tab PO 1XW 07/10/19 07/10/19 Unknown History Methylphenidate 20 mg PO BID 07/10/19 07/10/19 Unknown History Sodium Bicarbonate 2 tab PO BID 07/10/19 07/10/19 Unknown History Tums 500MG CHEW 1 tab PO AC 07/10/19 07/10/19 Unknown History Venlafaxine HCl [Venlafaxine] 100 mg PO BID 07/10/19 07/10/19 Unknown History Vit B Comp No.3/Folic/C/Biotin 1 tab PO DAILY 07/10/19 07/10/19 Unknown History [Jane-Jagruti Rx Tablet] buPROPion XL [Wellbutrin XL] 1 tab PO DAILY 07/10/19 07/10/19 Unknown History lamoTRIgine [LaMICtal] 1 tab PO DAILY 07/10/19 07/10/19 Unknown History Active Meds: Active Medications Acetaminophen (Tylenol) 650 mg PO Q4H PRN PRN Reason: Pain MILD(1-3)/Fever >100.5/DERAS Albuterol (Proventil) 2.5 mg IH Q4HRT PRN PRN Reason: Shortness Of Breath Amlodipine Besylate (Amlodipine) 10 mg PO QDAY [facility] Last Admin: 07/11/19 10:13 Dose: 10 mg Documented by: Carvedilol (Coreg) 25 mg PO BID [facility] Last Admin: 07/11/19 10:14 Dose: 25 mg Documented by: Sodium Chloride (Nacl 0.9%) 100 mls @ 999 mls/hr IV VANESSA PRN PRN Reason: Hypotension Ondansetron HCl (Zofran) 4 mg IV Q8H PRN PRN Reason: Nausea And Vomiting Sodium Chloride (Sodium Chloride Flush Syringe 10 Ml) 10 ml IV BID [facility] Last Admin: 07/11/19 10:14 Dose: 10 ml Documented by: Sodium Chloride (Sodium Chloride Flush Syringe 10 Ml) 10 ml IV PRN PRN PRN Reason: LINE FLUSH Valsartan (Diovan) 160 mg PO QDAY [facility] Last Admin: 07/11/19 10:13 Dose: 160 mg Documented by: Exam - Vital Signs Vital signs: Vital Signs Temp Pulse Resp BP Pulse Ox 97.9 F 109 H 16 231/119 93 07/10/19 10:58 07/10/19 10:58 07/10/19 10:58 07/10/19 10:58 07/10/19 10:58 - Physical Exam Narrative exam: - General Limitations: No Limitations General appearance: alert, in no apparent distress - Head Head exam: Present: atraumatic, normocephalic - Eye Eye exam: Present: normal appearance, EOMI - ENT ENT exam: Present: mucous membranes moist - Neck Neck exam: Present: normal inspection - Respiratory Respiratory exam: Present: normal lung sounds bilaterally. Absent: respiratory distress - Cardiovascular Cardiovascular Exam: Present: normal rhythm, tachycardia - GI/Abdominal GI/Abdominal exam: Present: soft. Absent: distended, tenderness - Extremities Exam Extremities exam: Present: normal inspection - Neurological Exam Neurological exam: Present: alert, oriented X3 - Psychiatric Psychiatric exam: Present: normal affect, normal mood - Skin Skin exam: Present: warm, dry, intact, normal color Results - Lab Results 07/10/19 12:22 07/11/19 04:08 Most recent lab results Calcium 9.1 mg/dL (8.4-10.2) 07/11/19 04:08 Assessment and Plan Impression: * End stage renal disease * Hyperkalemia * Metabolic acidosis * Peripheral edema * Chronic depression * Hx of right UE acute DVT on chronic anticoagulation --right subclavian, axillary, upper brachial * Anemia secondary to ESRD * Secondary hyperparathyroidism * Hypertension Plan: * Hemodialysis yestertoday and Will resume TTS hemodialysis schedule * UF as tolerated * Continue antiHTN medications * Epogen TIW prn * Renal diet * Does not require binders with meals * AM labs * ok to dc home after hd today from renal standpoint
[2019-07-11] MEDS ORDERED: SODIUM CHLORIDE*PRIMING MACHINE ONLY FOR DIALYSIS MC ONE (13:00)
--- NOTE | 2019-07-11 14:23 | Discharge Summary ---
Providers - Providers Date of Admission: 07/10/19 14:06 Date of discharge: 07/11/19 Attending physician: BRYAN NERI 07/10/19 13:47 Consult to Physician [CONS] Stat Comment: Consulting Provider: BRIDNA SHARP Physician Instructions: Reason For Exam: hyperkalemia 07/10/19 14:50 psychiatry consult [Consult to Mental Health] [CONS] Routine Reason For Exam: Depressed mood Primary care physician: SWITCH ADJUSTER Hospitalization Condition: Stable Hospital course: Patient is a 58 yo woman with a history of ESRD on HD(T,R,Sa), HTN, Depression, RUE DVT on therapeutic anticoagulation and HCV presents to [facility] ED for Hemodialysis. Patient has missed Hemodialysis for 1 week. She missed HD because she was "stubborn" by her report. Pt also acknowledges feeling depressed but denies SI. She received Hemodialysis on day of admission and will have another session today then resume her TTS schedule (1) ESRD needing dialysis Current Visit: Yes Status: Acute Plan to address problem: Strict I's/O, daily weight, BMP, nephrology consulted in ED, dialysis as per renal team. Avoid nephrotoxic agents, supportive care. (2) Advance care planning Current Visit: Yes Status: Acute Plan to address problem: Patient is full code, disease education conducted, patient acknowledges understanding and agreement with care plan. (3) Noncompliance of patient with renal dialysis Current Visit: Yes Status: Acute Plan to address problem: Behavior change counseling. Patient counseled regarding noncompliance with dialysis. Patient knowledge understanding risks of recurrent noncompliance. +15 minutes (4) Hyperkalemia Current Visit: Yes Status: Acute Plan to address problem: Urgent dialysis, no EKG changes. Calcium gluconate, Kayexalate. (5) Hypertensive urgency Current Visit: Yes Status: Acute Plan to address problem: Monitor blood pressure every shift, resume prehospital antihypertensive therapy, IV hydralazine as needed for systolic blood pressure greater than 155. (6) Acidosis Current Visit: No Status: Acute Plan to address problem: IV bicarbonate therapy, urgent dialysis. Repeat BMP, (7) Depressed mood Current Visit: Yes Status: Acute Plan to address problem: Patient acknowledges anhedonia, feeling helpless and hopeless: Psychiatry consulted. (8) DVT prophylaxis Current Visit: Yes Status: Acute Plan to address problem: SCD to bilateral lower extremities while in bed, patient is ambulatory. Disposition: DC-01 TO HOME OR SELFCARE Time spent for discharge: 32 minutes Core Measure Documentation - Palliative Care Palliative Care/ Comfort Measures: Not Applicable - Core Measures Any of the following diagnoses?: none - VTE Discharge Requirements Deep Vein Thrombosis/Pulmonary Embolism Present on Admission: No Has pt received <5 days of overlap therapy or INR<2.0: No Anticoagulant overlap therapy prescribed at discharge: No Contraindication No Overlap Therapy order at DC: Not Indicated Exam - Physical Exam Narrative exam: Gen: WDWN, NAD, Awake, Alert, Orientated x 3 HEENT: NCAT, EOMI, PERRL, OP Clear Neck: supple, no adenopathy, no thyromegaly, no JVD CVS/Heart: RRR, normal S1S2, pulses present bilaterally Chest/Lungs: CTA B, Symmetrical chest expansion, good air entry bilaterally GI/Abdomen: soft, NTND, good bowel sounds, no guarding or rebound /Bladder: no suprapubic tenderness, no CVA or paraspinal tenderness Extermity/Skin: no c/c/e, no obvious rash MSK: FROM x 4 Neuro: CN 2-12 grossly intact, no new focal deficits Psych: calm - Constitutional Vitals: Temp Pulse Resp BP Pulse Ox 97.9 F 82 18 190/100 98 07/11/19 11:40 07/11/19 14:00 07/11/19 11:40 07/11/19 14:00 07/11/19 11:30 Plan Activity: other (no strenous activity unless cleared by PCP) Diet: low salt, renal Additional Instructions: Check your INR tomorrow with your doctor Follow up with: BRINDA SHARP MD [Staff Physician] - 7 Days KYLER BOWMAN MD [Staff Physician] - 7 Days
[2019-07-11 15:35] VITALS: BP 167/95
--- NOTE | 2019-07-11 16:05 | Consultation ---
History of Present Illness - Reason for Consult Consult date: 07/11/19 Reason for consult: depression - Chief Complaint Chief complaint: depression - History of Present Psychiatric Illness Bhavana Barber is a 58y/o female who states she was admitted into the hospital because she "stopped having her dialysis." The patient is lying in bed. Awake. Dressed appropriately. Good eye contact. Flat affect. She is calm and cooperative. She is a/o 2 to 3. She says her "mind went blank for a minute when thinking of the date." She is forgetful. She says she is "depressed." The patient says "I stopped taking my meds and having my dialysis because I was tired of being a slave to it." She says, "I got real sick. That wasn't a good idea." When asking the patient if she was trying to , she replied "no, I don't want to . I'm not suicidal. I won't do that again." She says "just was tired of dialysis taking over my life." The patient says she tried to commit suicide "once when I was a teen." She says she's been admitted into the [facility], but "it was for drinking." The patient says she "used to drink a lot." She says she's had her "last drink about two years ago." She denies any illicit drugs, or alcohol at present. She says she smokes an "electronic cigaret." The patient says she has a history of "major depression and anxiety." Mrs. Barber says she takes medication for depression and she "thinks it's abilify," but couldn't quite remember. " She says she's been "off her meds for about two weeks." She denies hallucinations of any kind. She says her appetite is "really good." PAST PSYCHIATRIC HISTORY: Diagnoses: depression and anxiety Suicide attempts or Self-harm behavior: "when I was a teen" Prior psychiatric hospitalizations: "for alcohol" Substance Abuse history: Denies Previous psychiatric medications tried: abilify Outpatient treatment: Yes PAST MEDICAL HISTORY: none reported Family Psychiatric History None reported or documented SOCIAL HISTORY Marital Status: Single Living Arrangements: with daughter and grand kids Employment Status: Disabled Access to guns/weapons: Denies Education: 2 years of college History of Abuse: Denies Legal History: DUI REVIEW OF SYSTEMS Constitutional: Negative for weight loss ENT: Negative for stridor Respiratory: Negative for cough or hemoptysis All other systems reviewed and are negative MSE Appearance: Dressed appropriately. In bed. Behavior: Calm, cooperative, good eye contact Mood: "depressed" Affect: Flat Thought Process: Goal directed Speech: Normal tone and pace Thought Content Suicidal: Denies Homicidal: Denies Hallucinations: Denies Delusions: None elicited Consciousness: Alert Cognition/Memory: Fair Insight/Judgment: Fair Assessment: Major Depressive Disorder, Moderate, w/o Psychotic Features Plan Restart home medications Medical: per priamary Disposition: The patient does not meet the criteria for acute inpatient psychiatric treatment at this time. She may discharge home once medically cleared. Please follow up with outpatient psych or primary in 7 to 10 days. Will sign off. Thank you for this consult. Medications and Allergies Allergies Allergy/AdvReac Type Severity Reaction Status Date / Time No Known Allergies Allergy Verified 05/18/18 18:12 Home Medications Medication Instructions Recorded Confirmed Last Taken Type Latanoprost 0.005% 2 drops OU QHS #1 bottle 10/29/18 07/10/19 12/08/18 21:00 Rx Pantoprazole [Protonix TAB] 40 mg PO QDAY #30 tablet 10/29/18 07/10/19 12/09/18 06:00 Rx allopurinoL [Zyloprim] 100 mg PO DAILY #30 tablet 10/29/18 07/10/19 12/09/18 06:00 Rx amLODIPine 10 mg PO QDAY #30 tablet 10/29/18 07/10/19 12/09/18 06:00 Rx carvediloL [Coreg] 25 mg PO BID #60 tablet 10/29/18 07/10/19 12/09/18 06:00 Rx Valsartan [Diovan] 160 mg PO DAILY 12/01/18 07/10/19 12/09/18 06:00 History Warfarin Sodium [Coumadin] 7.5 mg PO DAILY 12/01/18 07/10/19 12/08/18 20:00 History buPROPion 300 mg PO DAILY 12/01/18 07/10/19 12/09/18 06:00 History Brimonidine/Timolol 0.2-0.5% 1 drop BID 07/10/19 07/10/19 Unknown History [Combigan 0.2-0.5%] Ergocalciferol [Vitamin D2] 1 tab PO 1XW 07/10/19 07/10/19 Unknown History Methylphenidate 20 mg PO BID 07/10/19 07/10/19 Unknown History Sodium Bicarbonate 2 tab PO BID 07/10/19 07/10/19 Unknown History Tums 500MG CHEW 1 tab PO AC 07/10/19 07/10/19 Unknown History Venlafaxine HCl [Venlafaxine] 100 mg PO BID 07/10/19 07/10/19 Unknown History Vit B Comp No.3/Folic/C/Biotin 1 tab PO DAILY 07/10/19 07/10/19 Unknown History [Jane-Jagruti Rx Tablet] buPROPion XL [Wellbutrin XL] 1 tab PO DAILY 07/10/19 07/10/19 Unknown History lamoTRIgine [LaMICtal] 1 tab PO DAILY 07/10/19 07/10/19 Unknown History Active Meds: Active Medications Acetaminophen (Tylenol) 650 mg PO Q4H PRN PRN Reason: Pain MILD(1-3)/Fever >100.5/DERAS Last Admin: 07/11/19 13:14 Dose: 650 mg Documented by: Albuterol (Proventil) 2.5 mg IH Q4HRT PRN PRN Reason: Shortness Of Breath Amlodipine Besylate (Amlodipine) 10 mg PO QDAY [facility] Last Admin: 07/11/19 10:13 Dose: 10 mg Documented by: Carvedilol (Coreg) 25 mg PO BID [facility] Last Admin: 07/11/19 10:14 Dose: 25 mg Documented by: Sodium Chloride (Nacl 0.9%) 100 mls @ 999 mls/hr IV VANESSA PRN PRN Reason: Hypotension Ondansetron HCl (Zofran) 4 mg IV Q8H PRN PRN Reason: Nausea And Vomiting Sodium Chloride (Sodium Chloride Flush Syringe 10 Ml) 10 ml IV BID [facility] Last Admin: 07/11/19 10:14 Dose: 10 ml Documented by: Sodium Chloride (Sodium Chloride Flush Syringe 10 Ml) 10 ml IV PRN PRN PRN Reason: LINE FLUSH Valsartan (Diovan) 160 mg PO QDAY [facility] Last Admin: 07/11/19 10:13 Dose: 160 mg Documented by: Mental Status Exam - Vital signs Last Vital Signs Temp 97.8 F 07/11/19 15:00 Pulse 92 H 07/11/19 15:00 Resp 18 07/11/19 15:00 BP 167/95 07/11/19 15:00 Pulse Ox 98 07/11/19 11:30 Results Result Diagrams: 07/10/19 12:22 07/11/19 04:08 Abnormal lab results 07/10/19 07/10/19 07/11/19 Range/Units 16:18 16:37 04:08 BUN 47 H (7-17) mg/dL Creatinine 6.5 H (0.7-1.2) mg/dL Glucose 131 H (65-100) mg/dL POC Glucose 46 L 107 H (70-105) All other labs normal.
== END 2019-07-11 16:30 | disposition home or self-care (01) ==
LOC: ED 10:44 → 3A 14:06
PROVIDERS: ADMIT Internal Medicine; ATTEND Internal Medicine
DX: I16.0 Hypertensive urgency (principal); I12.0 Hypertensive chronic kidney disease with stage 5 chronic kidney disease or end stage renal disease; N18.6 End stage renal disease; E87.5 Hyperkalemia; E87.2 Acidosis; K21.9 Gastro-esophageal reflux disease without esophagitis; F32.9 Major depressive disorder, single episode, unspecified; R94.5 Abnormal results of liver function studies; Z91.15 Patient's noncompliance with renal dialysis; Z86.19 Personal history of other infectious and parasitic diseases; Z79.01 Long term (current) use of anticoagulants; Z86.718 Personal history of other venous thrombosis and embolism; Z98.890 Other specified postprocedural states; Z79.899 Other long term (current) drug therapy
CPT/HCPCS: 36415; 80048; 80074; 82962; 85027; 87116; 93005; 93010; 94640; 94760; 96374; 96375; 99291; G0257; G0378; J0610; J7030; J1815

== ENCOUNTER 2019-08-07 07:44 | Day surgery (SDC) | payer MEDICARE ==
[~2019-08-07 07:44] MED LIST changes: -ANCEF/STERILE WATER 2 GM/20 ML 2 GM/20 ML SYRINGE IV NR; -DIPRIVAN 10 MG/ML IV ONE; -GELFOAM TP ONE; -HEPARIN 10,000 UNITS/10 ML ONE; -MARCAINE-EPI 0.5%-1:200,000 INFILTRATI ONE; -NACL 0.9% 1000 ML 1,000 ML IV SCH; -NACL 0.9% 500 ML 500 ML ONE; -NACL BACTERIOSTATIC INFILTRATI ONE; -NACL P/F VIAL (10 ML) 10 ML ONE; -NITROGLYCERIN SYRINGE 0 ML ONE; -PAPAVERINE ONE; -PROTAMINE SULFATE ONE; -RIFADIN ONE; -SODIUM BICARBONATE ONE; +SODIUM CHLORIDE 0.9% 1000 ML 1,000 ML IV SCH; -SUBLIMAZE IV PRN; -SUBLIMAZE ONE; -XYLOCAINE 1%/ EPI 1:100,000 INFILTRATI ONE; -ZOFRAN IV PRN
[2019-08-07] MEDS ORDERED: WATER FOR IRRIG STERILE 250 ML BOTTLE IR ONE (07:56)
--- NOTE | 2019-08-07 08:45 | Anesthesia Day of Surgery ---
Anesthesia Day of Surgery - Day of Surgery Patient Examined: Yes Patient H&P Reviewed: Yes Patient is NPO: Yes Beta Blockers: Yes
--- NOTE | 2019-08-07 08:45 | Anesthesia Consultation ---
Anesthesia Consult and Med Hx Date of service: 08/07/19 - Airway Anesthetic Teeth Evaluation: Chipped ROM Head & Neck: Adequate Mental/Hyoid Distance: Adequate Mallampati Class: Class III Intubation Access Assessment: Possibly Difficult - Pre-Operative Health Status ASA Pre-Surgery Classification: ASA3 Proposed Anesthetic Plan: MAC - Pulmonary Hx Smoking: Yes Hx Asthma: No Hx Respiratory Symptoms: No (SpO2 94% on RA in preop) COPD: No Hx Pneumonia: No Hx Sleep Apnea: Yes (DX SLEEP APNEA WITH CPAP USE.) - Cardiovascular System Hx Hypertension: Yes Hx Heart Attack/AMI: No Hx Percutaneous Transluminal Coronary Angioplasty (PTCA): No Hx Cardia Arrhythmia: No - Central Nervous System Hx Seizures: No CVA: No Hx Psychiatric Problems: Yes (depression) - Gastrointestinal Hx Gastroesophageal Reflux Disease: Yes (took protonix this morning, asymptomatic now) - Endocrine Hx Renal Disease: Yes (HD T,,Wednesday) Hx End Stage Renal Disease: Yes Hx Cirrhosis: Yes Hx Liver Disease: Yes (HCV) Hx Insulin Dependent Diabetes: No Hx Non-Insulin Dependent Diabetes: No Hx Thyroid Disease: No - Hematic Hx Anemia: Yes - Other Systems Hx Cancer: No Hx Obesity: Yes (BMI 40.2)
[2019-08-07] MEDS ORDERED: propofoL 200 MG/20 ML VIAL IV ONE (09:15)
--- NOTE | 2019-08-07 09:40 | Operative Report ---
Operative Report Operative Report: DOS: 08/07/2019 SURGEON: Candelario Rivera MD EGD with biopsy REPORT PREOPERATIVE DIAGNOSIS and POSTOPERATIVE DIAGNOSIS: Cirrhosis rule out esophageal varices, GERD ESTIMATED BLOOD LOSS: Minimal DESCRIPTION OF PROCEDURE: A high-resolution EGD scope was passed through the oropharynx, esophagus, stomach, and second portion of duodenum. The scope was carefully withdrawn. Retroflexion was performed in the stomach. At the end of the procedure, the scope was cleaned using normal technique. Vital signs monitored continuously throughout. SEDATION: Provided by Anesthesiology Services. COMPLICATIONS: None. FINDINGS: * No gross lesions in the entire visualized duodenum * Mild amount of residual food in the gastric body * The stomach appeared otherwise grossly normal * No gastric varices * No esophageal varices * 3 cm hiatal hernia * Possible C0 M1 Ann's esophagus, four-quadrant random biopsies obtained using cold biopsy forceps * GE junction at 35 cm from the incisors RECOMMENDATIONS: Follow-up pathology results, repeat EGD to screen for varices in 2 years
[2019-08-07 10:09] VITALS: BP 158/78
[2019-08-07] MEDS ORDERED: LIDOCAINE MPF (2%) 20 MG/1 ML VIAL 5 ML ONE (11:00)
--- NOTE | 2019-08-07 13:20 | Post Anesthesia Evaluation ---
- Post Anesthesia Evaluation Patient Participated: Yes Airway Patent: Yes Stable Respiratory Function: Yes Nausea/Vomiting: No Temp > 96.8F: Yes Pain Manageable: Yes Adequeate Hydration: Yes Anesthesia Complications: No
== END 2019-08-07 07:45 | disposition home or self-care (01) ==
LOC: GIO 07:44
PROVIDERS: ATTEND Student in an Organized Health Care Education/Training Program
DX: K74.69 Other cirrhosis of liver (principal); K21.0 Gastro-esophageal reflux disease with esophagitis; K44.9 Diaphragmatic hernia without obstruction or gangrene; I12.0 Hypertensive chronic kidney disease with stage 5 chronic kidney disease or end stage renal disease; N18.6 End stage renal disease; M10.9 Gout, unspecified; H40.9 Unspecified glaucoma; D64.9 Anemia, unspecified; G47.30 Sleep apnea, unspecified; E66.9 Obesity, unspecified; F32.9 Major depressive disorder, single episode, unspecified; F41.9 Anxiety disorder, unspecified; Z79.899 Other long term (current) drug therapy; Z79.01 Long term (current) use of anticoagulants; Z87.891 Personal history of nicotine dependence; Z91.15 Patient's noncompliance with renal dialysis; Z98.49 Cataract extraction status, unspecified eye; Z86.718 Personal history of other venous thrombosis and embolism; Z90.49 Acquired absence of other specified parts of digestive tract; Z68.41 Body mass index [BMI] 40.0-44.9, adult; Z99.2 Dependence on renal dialysis; Z98.890 Other specified postprocedural states; Z98.891 History of uterine scar from previous surgery
CPT/HCPCS: 43239; 88305; J2704; J7030

== ENCOUNTER 2019-10-26 14:23 | Observation (INO) | payer MEDICARE ==
[2019-10-26 15:51] LABS: Calcium 7.9 mg/dL (8.4-10.2)
[2019-10-26 15:53] LABS: Hematocrit 35.3 % (30.3-42.9); Mean Corpuscular HGB Conc 31 % (30-34); Mean Corpuscular Volume 76 fl (79-97); Platelet Count 295 K/mm3 (140-440); Red Blood Count 4.65 M/mm3 (3.65-5.03); Red Cell Distribution Width 19.2 % (13.2-15.2)
--- NOTE | 2019-10-26 16:02 | XRay Report ---
CHEST 2 VIEWS INDICATION / CLINICAL INFORMATION: Shortness of breath. COMPARISON: Chest x-ray on 05/20/2019 FINDINGS: SUPPORT DEVICES: None. HEART / MEDIASTINUM: No significant abnormality. LUNGS / PLEURA: No significant pulmonary or pleural abnormality. No pneumothorax. ADDITIONAL FINDINGS: No significant additional findings. IMPRESSION: 1. No acute findings. Signer Name: Ramos Harvey MD Signed: 10/26/2019 3:58 PM Workstation Name: [id number]
--- NOTE | 2019-10-26 17:36 | Emergency Department Report ---
ED General Adult HPI - General Chief complaint: Medical Clearance Stated complaint: SHAKY/DIALYSIS TREATMENT Time Seen by Provider: 10/26/19 17:28 Source: patient Mode of arrival: Ambulatory Limitations: No Limitations - History of Present Illness Initial comments: Patient is a 59-year-old female that presents emergency room with need of dialysis. Patient states she is feeling tired. Patient states when she misses dialysis feels tired. Patient also states she is feeling depressed. Patient denies suicidal homicidal ideations. Patient denies hallucinations. Patient states she is just feeling down. Patient states her depression is caused her to miss dialysis. Patient states her last dialysis was on 10/19/2019. Patient states she goes Wednesday. Patient denies chest pain. Patient denies shortness of breath. Patient denies fever and chills. Patient denies swelling. Patient states her pin attacher Dr. Kellie Shell. Patient denies recent travel. Patient denies recent international travel. Patient denies exposure to the novel coronavirus. Patient denies sick contacts. Patient denies fever and chills. Patient denies cough. Patient denies diarrhea. Patient denies coming in contact with anybody with symptoms of the novel coronavirus. - Related Data Home Medications Medication Instructions Recorded Confirmed Last Taken Valsartan [Diovan] 160 mg PO DAILY 12/01/18 08/07/19 08/07/19 Warfarin Sodium [Coumadin] 7.5 mg PO DAILY 12/01/18 08/07/19 07/29/19 buPROPion 300 mg PO DAILY 12/01/18 08/07/19 12/09/18 06:00 Brimonidine/Timolol 0.2-0.5% 1 drop BID 07/10/19 08/07/19 Unknown [Combigan 0.2-0.5%] Ergocalciferol [Vitamin D2] 1 tab PO 1XW 07/10/19 08/07/19 Unknown Methylphenidate 20 mg PO BID 07/10/19 08/07/19 Unknown Sodium Bicarbonate 2 tab PO BID 07/10/19 08/07/19 08/07/19 Tums 500MG CHEW 1 tab PO AC 07/10/19 08/07/19 Unknown Venlafaxine HCl [Venlafaxine] 100 mg PO BID 07/10/19 08/07/19 Unknown Vit B Comp No.3/Folic/C/Biotin 1 tab PO DAILY 07/10/19 08/07/19 Unknown [Jane-Jagruti Rx Tablet] buPROPion XL [Wellbutrin XL] 1 tab PO DAILY 07/10/19 08/07/19 08/07/19 lamoTRIgine [LaMICtal] 1 tab PO DAILY 07/10/19 08/07/19 Unknown Previous Rx's Medication Instructions Recorded Last Taken Type Latanoprost 0.005% 2 drops OU QHS #1 bottle 10/29/18 12/08/18 21:00 Rx Pantoprazole [Protonix TAB] 40 mg PO QDAY #30 tablet 10/29/18 12/09/18 06:00 Rx allopurinoL [Zyloprim] 100 mg PO DAILY #30 tablet 10/29/18 08/07/19 Rx amLODIPine 10 mg PO QDAY #30 tablet 10/29/18 08/07/19 Rx carvediloL [Coreg] 25 mg PO BID #60 tablet 10/29/18 08/07/19 Rx Allergies Allergy/AdvReac Type Severity Reaction Status Date / Time No Known Allergies Allergy Verified 05/18/18 18:12 ED Review of Systems ROS: Stated complaint: SHAKY/DIALYSIS TREATMENT Other details as noted in HPI Constitutional: malaise. denies: chills, fever Eyes: denies: eye pain, eye discharge, vision change ENT: denies: ear pain, throat pain Respiratory: denies: cough, shortness of breath, wheezing Cardiovascular: denies: chest pain, palpitations Endocrine: no symptoms reported Gastrointestinal: denies: abdominal pain, nausea, diarrhea Genitourinary: denies: urgency, dysuria, discharge Musculoskeletal: denies: back pain, joint swelling, arthralgia Skin: denies: rash, lesions Neurological: denies: headache, weakness, paresthesias Psychiatric: depression. denies: anxiety, auditory hallucinations, visual hallucinations, homicidal thoughts, suicidal thoughts Hematological/Lymphatic: denies: easy bleeding, easy bruising ED Past Medical Hx - Past Medical History Previous Medical History?: Yes Hx Hypertension: Yes Hx Heart Attack/AMI: No Hx Congestive Heart Failure: No Hx Diabetes: No Hx Deep Vein Thrombosis: Yes (RT ARM 10/2018- ON COUMADIN) Hx GERD: Yes Hx Liver Disease: Yes (HCV) Hx Renal Disease: Yes (HD T,,Wednesday) Hx Seizures: No Hx Asthma: No Hx COPD: No Hx HIV: No Additional medical history: depression - Surgical History Past Surgical History?: Yes Hx Cholecystectomy: Yes Additional Surgical History: JAYY graft, Rt Vascath - Social History Smoking Status: Current Every Day Smoker Substance Use Type: None - Medications Home Medications: Home Medications Medication Instructions Recorded Confirmed Last Taken Type Latanoprost 0.005% 2 drops OU QHS #1 bottle 10/29/18 08/07/19 12/08/18 21:00 Rx Pantoprazole [Protonix TAB] 40 mg PO QDAY #30 tablet 10/29/18 08/07/19 12/09/18 06:00 Rx allopurinoL [Zyloprim] 100 mg PO DAILY #30 tablet 10/29/18 08/07/19 08/07/19 Rx amLODIPine 10 mg PO QDAY #30 tablet 10/29/18 08/07/19 08/07/19 Rx carvediloL [Coreg] 25 mg PO BID #60 tablet 10/29/18 08/07/19 08/07/19 Rx Valsartan [Diovan] 160 mg PO DAILY 12/01/18 08/07/19 08/07/19 History Warfarin Sodium [Coumadin] 7.5 mg PO DAILY 12/01/18 08/07/19 07/29/19 History buPROPion 300 mg PO DAILY 12/01/18 08/07/19 12/09/18 06:00 History Brimonidine/Timolol 0.2-0.5% 1 drop BID 07/10/19 08/07/19 Unknown History [Combigan 0.2-0.5%] Ergocalciferol [Vitamin D2] 1 tab PO 1XW 07/10/19 08/07/19 Unknown History Methylphenidate 20 mg PO BID 07/10/19 08/07/19 Unknown History Sodium Bicarbonate 2 tab PO BID 07/10/19 08/07/19 08/07/19 History Tums 500MG CHEW 1 tab PO AC 07/10/19 08/07/19 Unknown History Venlafaxine HCl [Venlafaxine] 100 mg PO BID 07/10/19 08/07/19 Unknown History Vit B Comp No.3/Folic/C/Biotin 1 tab PO DAILY 07/10/19 08/07/19 Unknown History [Jane-Jagruti Rx Tablet] buPROPion XL [Wellbutrin XL] 1 tab PO DAILY 07/10/19 08/07/19 08/07/19 History lamoTRIgine [LaMICtal] 1 tab PO DAILY 07/10/19 08/07/19 Unknown History ED Physical Exam - General Limitations: No Limitations General appearance: alert, in no apparent distress - Head Head exam: Present: atraumatic, normocephalic - Eye Eye exam: Present: normal appearance - ENT ENT exam: Present: mucous membranes moist - Neck Neck exam: Present: normal inspection - Respiratory Respiratory exam: Present: normal lung sounds bilaterally. Absent: respiratory distress, wheezes, rales - Cardiovascular Cardiovascular Exam: Present: regular rate, normal rhythm. Absent: systolic murmur, diastolic murmur, rubs, gallop - GI/Abdominal GI/Abdominal exam: Present: soft, normal bowel sounds - Extremities Exam Extremities exam: Present: normal inspection - Back Exam Back exam: Present: normal inspection - Neurological Exam Neurological exam: Present: alert, oriented X3 - Psychiatric Psychiatric exam: Present: normal affect, normal mood - Skin Skin exam: Present: warm, dry, intact, normal color. Absent: rash ED Course Vital Signs 10/26/19 18:10 Temperature 98.0 F Pulse Rate 74 Respiratory 18 Rate Blood Pressure 209/93 [Right] O2 Sat by Pulse 100 Oximetry - Reevaluation(s) Reevaluation #1: I discussed all results with patient. I discussed plan of care with patient. Patient agrees with plan of care and admission. Patient to be admitted to the hospitalist service. 10/26/19 17:56 - Consultations Consultation #1: I discussed case with Dr. Brianne Merino who is on-call for Dr. Shell's group. Dr. Decker recommends dialysis in the morning, admission to the hospitalist, to amps of bicarb and 1 amp of calcium and 60 mg of Kayexalate. 10/26/19 17:53 Consultation #2: Hospitalist consulted for admission. Hospitalist to admit patient. 10/26/19 17:55 ED Medical Decision Making - Lab Data Result diagrams: 10/26/19 15:10 10/26/19 15:10 - EKG Data -: EKG Interpreted by Me EKG shows normal: sinus rhythm, axis, intervals, QRS complexes, ST-T waves Rate: normal - Radiology Data Radiology results: report reviewed, image reviewed CHEST 2 VIEWS INDICATION / CLINICAL INFORMATION: Shortness of breath. COMPARISON: Chest x-ray on 05/20/2019 FINDINGS: SUPPORT DEVICES: None. HEART / MEDIASTINUM: No significant abnormality. LUNGS / PLEURA: No significant pulmonary or pleural abnormality. No pneumothorax. ADDITIONAL FINDINGS: No significant additional findings. IMPRESSION: 1. No acute findings. - Medical Decision Making Patient is a 59-year-old female that presents emergency room with complaints of missed dialysis and fatigue. Patient states she has not had dialysis for 7 days. Patient had labs done. Patient's labs shows hyperkalemia and elevated BUN. Patient also found to have low calcium. Nephrology was consulted. Nephrology recommendations were received. Nephrology recommended 2 Amps of bicarb, 1 amp of calcium and Kayexalate. Nephrology stated they will dialyze the patient in the morning. Patient admitted to the hospitalist service. Patient's chest x-ray does not not show volume overload. Chest x-ray is negative for acute findings. Critical care time documented due to the number of consults and the severity of the patient's case and abnormal electrolyte findings. - Differential Diagnosis Missed dialysis, electrolyte imbalance, acidosis, hyperkalemia, fatigue Critical Care Time: Yes Critical care time in (mins) excluding proc time.: 45 Critical care attestation.: If time is entered above; I have spent that time in minutes in the direct care of this critically ill patient, excluding procedure time. Critical Care Time: 45 minutes ED Disposition Clinical Impression: Hyperkalemia, Missed dialysis, ESRD (end stage renal disease), Acidosis, Noncompliance of patient with renal dialysis, Depressed mood Disposition: OP ADMIT IP TO THIS HOSP Is pt being admited?: Yes Does the pt Need Aspirin: No Condition: Critical Time of Disposition: 18:01
[2019-10-26] MEDS ORDERED: CALCIUM CHLORIDE 1,000 MG/10 ML SDV IVP ONE (17:54)
[2019-10-26] MEDS ORDERED: SODIUM BICARB 8.4% 50 MEQ/50 ML SYRINGE IV ONE ×2 (17:54→17:55)
[2019-10-26] MEDS ORDERED: SODIUM POLYSTYRENE 15 GM/60 ML ORAL LIQD PO ONE (17:54)
[2019-10-26] MEDS ORDERED: CALCIUM CHLORIDE 1,000 MG in SODIUM CHLORIDE 0.9% 100 ML IV ONE (18:00)
[2019-10-26] MEDS ORDERED: ACETAMINOPHEN 325 MG TAB PO PRN (18:14)
--- NOTE | 2019-10-26 18:14 | History and Physical Report ---
History of Present Illness Chief complaint: Im feeling down History of present illness: 59 YO Female with ESRD on HD(T,R,Sa) last dialyzed 1 week ago, HTN, Depression, RUE DVT on therapeutic anticoagulation, HCV presents to ED for evaluation. Pt states that she has not undergone her scheduled dialysis sessions for the past 1 week. Patient reports that "I feel tired like this when i miss my dialysis". Pt also acknowledges feeling depressed. Pt transported to [facility] via private vehicle. Patient seen and evaluated in ED and found to have ESRD, Acidosis, Hyperkalemia, and Fluid Overload suspected secondary to noncompliance. Patient counslede regarding noncompliance. Nephrology consulted for urgent dialysis. Pt denies fever, chills, CP, Palpitations, NVD, Trauma, SI/HI, BRBPR, unintentional weight loss, night sweats, or recent ill contacts, or known exposure to COVID-19. Pt placed in observation status and admitted to medical floor for medical stabilization due to increased risk of cardiorenal decompensation. Prior admission on 07/10/2019 reviewed. All listed medication reconciled at time of admission. Advanced care planning conducted in ED. Past History Past Medical History: DVT, ESRD, hypertension, other (See HPI) Past Surgical History: Other (Dialysis access) Social history: . denies: smoking, alcohol abuse, prescription drug abuse Family history: diabetes, hypertension Medications and Allergies Allergies Allergy/AdvReac Type Severity Reaction Status Date / Time No Known Allergies Allergy Verified 05/18/18 18:12 Home Medications Medication Instructions Recorded Confirmed Last Taken Type Latanoprost 0.005% 2 drops OU QHS #1 bottle 10/29/18 08/07/19 12/08/18 21:00 Rx Pantoprazole [Protonix TAB] 40 mg PO QDAY #30 tablet 10/29/18 08/07/19 12/09/18 06:00 Rx allopurinoL [Zyloprim] 100 mg PO DAILY #30 tablet 10/29/18 08/07/19 08/07/19 Rx amLODIPine 10 mg PO QDAY #30 tablet 10/29/18 08/07/19 08/07/19 Rx carvediloL [Coreg] 25 mg PO BID #60 tablet 10/29/18 08/07/19 08/07/19 Rx Valsartan [Diovan] 160 mg PO DAILY 12/01/18 08/07/19 08/07/19 History Warfarin Sodium [Coumadin] 7.5 mg PO DAILY 12/01/18 08/07/19 07/29/19 History buPROPion 300 mg PO DAILY 12/01/18 08/07/19 12/09/18 06:00 History Brimonidine/Timolol 0.2-0.5% 1 drop BID 07/10/19 08/07/19 Unknown History [Combigan 0.2-0.5%] Ergocalciferol [Vitamin D2] 1 tab PO 1XW 07/10/19 08/07/19 Unknown History Methylphenidate 20 mg PO BID 07/10/19 08/07/19 Unknown History Sodium Bicarbonate 2 tab PO BID 07/10/19 08/07/19 08/07/19 History Tums 500MG CHEW 1 tab PO AC 07/10/19 08/07/19 Unknown History Venlafaxine HCl [Venlafaxine] 100 mg PO BID 07/10/19 08/07/19 Unknown History Vit B Comp No.3/Folic/C/Biotin 1 tab PO DAILY 07/10/19 08/07/19 Unknown History [Jane-Jagruti Rx Tablet] buPROPion XL [Wellbutrin XL] 1 tab PO DAILY 07/10/19 08/07/19 08/07/19 History lamoTRIgine [LaMICtal] 1 tab PO DAILY 07/10/19 08/07/19 Unknown History Review of Systems Constitutional: fatigue, weakness, no weight loss, no weight gain, no fever, no chills Ears, nose, mouth and throat: no ear pain, no ear discharge, no tinnitis, no decreased hearing, no nose pain Breasts: no change in shape, no swelling, no mass Cardiovascular: no chest pain, no orthopnea, no palpitations, no rapid/irregular heart beat, no edema Respiratory: no cough, no cough with sputum, no excessive sputum, no hemoptysis Gastrointestinal: no abdominal pain, no nausea, no vomiting, no diarrhea, no constipation Genitourinary Female: no pelvic pain, no flank pain, no menorrhagia, no dysuria (This lady, elevated blood pressure with a EF of 10), no urinary frequency ( you know with a automotive services manager to be in the bed with him at home and could do anything about it) Rectal: no pain, no incontinence, no bleeding Musculoskeletal: no neck stiffness, no neck pain, no shooting arm pain, no arm numbness/tingling Integumentary: no rash, no pruritis, no redness, no sores, no wounds, no jaundice Neurological: no paralysis, no weakness, no parathesias, no numbness, no tingling Psychiatric: no anxiety, no memory loss, no change in sleep habits, no hypersomnia, no change in appetite, no suicidal ideation Endocrine: no excessive thirst, no polydipsia, no nocturia, no excessive sweating Hematologic/Lymphatic: no easy bruising, no easy bleeding, no lymphadenopathy Allergic/Immunologic: no urticaria, no allergic rhinitis, no persistent infect ions, no anaphylaxis Exam - Constitutional Vitals: Temp Pulse Resp BP Pulse Ox 98.0 F 74 18 209/93 100 10/26/19 18:10 10/26/19 18:10 10/26/19 18:10 10/26/19 18:10 10/26/19 18:10 General appearance: Present: mild distress, obese - Respiratory Respiratory: bilateral: diminished, rhonchi - Cardiovascular Heart Sounds: Present: S1 & S2. Absent: rub, click - Extremities Extremities: pulses symmetrical, No edema Peripheral Pulses: within normal limits - Abdominal General gastrointestinal: Present: soft, non-tender, non-distended, normal bowel sounds Female genitourinary: Present: normal - Integumentary Integumentary: Present: clear, warm, dry - Musculoskeletal Musculoskeletal: gait normal, strength equal bilaterally - Psychiatric Psychiatric: appropriate mood/affect, intact judgment & insight - Neurologic Neurologic: CNII-XII intact, moves all extremities Results - Labs CBC & Chem 7: 10/26/19 15:10 10/26/19 15:10 Labs: Abnormal lab results 10/26/19 10/26/19 Range/Units 15:10 15:10 MCV 76 L (79-97) fl MCH 24 L (28-32) pg RDW 19.2 H (13.2-15.2) % Potassium 5.9 H (3.6-5.0) mmol/L Carbon Dioxide 13 L (22-30) mmol/L BUN 107 H (7-17) mg/dL Creatinine 10.2 H (0.7-1.2) mg/dL Glucose 111 H (65-100) mg/dL Calcium 7.9 L (8.4-10.2) mg/dL Phosphorus 7.50 H (2.5-4.5) mg/dL NT-Pro-B Natriuret Pep 3911 H (0-900) pg/mL Assessment and Plan - Patient Problems (1) ESRD (end stage renal disease) Current Visit: Yes Status: Acute Plan to address problem: Strict I's/O, monitor urine output every shift, nephrology team consulted in ED for urgent dialysis, avoid nephrotoxic agents. Repeat BMP in a.m. (2) Metabolic acidosis Current Visit: Yes Status: Acute Plan to address problem: Supportive care, urgent dialysis, IV bicarbonate therapy. Repeat BMP in a.m. (3) Noncompliance of patient with renal dialysis Current Visit: Yes Status: Acute Plan to address problem: Patient counseled regarding noncompliance with dialysis. Patient informed that continued noncompliance with dialysis may result in worsening symptoms and premature . Patient knowledges understanding instructions. Behavior change counseling. +15 minutes. (4) Acute hyperkalemia Current Visit: No Status: Acute Plan to address problem: BMP, Kayexalate, calcium chloride, no EKG changes. Urgent dialysis. (5) DVT prophylaxis Current Visit: Yes Status: Acute Plan to address problem: SCD to bilateral lower extremities while in bed, continue therapeutic a nticoagulation. (6) Advance care planning Current Visit: Yes Status: Acute Plan to address problem: Disease education conducted, patient is full code, patient counseled regarding noncompliance with dialysis, patient acknowledges understanding and agreement with care plan. +30 minutes.
[2019-10-26] MEDS ORDERED: ERGOCALCIFEROL (VIT D2) 50,000 UNIT CAP PO SCH (19:00)
[2019-10-26 19:27] LABS: INR 1.14 (0.87-1.13)
[2019-10-26] MEDS ORDERED: VENLAFAXINE 25 MG TAB PO SCH (22:00)
[2019-10-26] MEDS ORDERED: VENLAFAXINE 75 MG TAB PO SCH (22:00)
[2019-10-26] MEDS ORDERED: VENLAFAXINE HCL 100 MG PO SCH (22:00)
[2019-10-26] MEDS ORDERED: METHYLPHENIDATE 20 MG PO SCH (22:00)
[2019-10-26] MEDS ORDERED: SODIUM BICARBONATE 650 MG TAB PO SCH (22:00)
[2019-10-26] MEDS ORDERED: carvediloL 25 MG TAB ONE (23:42)
[2019-10-26] MEDS: LATANOPROST 0.005% OPHTH SOLN 2.5 ML OU SCH (23:51)
[2019-10-26] MEDS: COMBIGAN 0.2-0.5% OPHTH SOLN OD SCH (23:52)
[2019-10-26] MEDS: SODIUM BICARBONATE 650 MG TAB PO SCH (23:54)
[2019-10-26] MEDS: carvediloL 25 MG TAB PO SCH (23:54)
[2019-10-27] MEDS: hydrALAZINE 20 MG/1 ML INJ IV PRN ×2 (01:15→10:59)
[2019-10-27] MEDS ORDERED: hydrALAZINE 20 MG/1 ML INJ ONE ×2 (01:15→04:02)
[2019-10-27] MEDS ORDERED: hydrALAZINE 20 MG/1 ML INJ IV ONE (03:54)
[2019-10-27 05:13] LABS: Calcium 8.4 mg/dL (8.4-10.2)
[2019-10-27] MEDS ORDERED: TUMS PO SCH (07:30)
[2019-10-27] MEDS: CALCIUM CARBONATE 500 MG TAB CHEW PO SCH ×3 (07:44→18:15)
[2019-10-27] MEDS ORDERED: SODIUM CHLORIDE 0.9% 100 ML IV PRN (08:18)
[2019-10-27] MEDS ORDERED: VALSARTAN 160 MG PO SCH (10:00)
[2019-10-27] MEDS ORDERED: BUPROPION 300 MG PO SCH (10:00)
[2019-10-27] MEDS ORDERED: NON-FORMULARY EACH (Vit B Comp No.3/Folic/C/Biotin [Rena-Vite Rx Tablet] 1 TAB) PO SCH (10:00)
--- NOTE | 2019-10-27 10:38 | Discharge Summary ---
Providers - Providers Date of Admission: 10/26/19 18:15 Attending physician: LON ARMSTRONG MD 10/26/19 17:55 Consult to Physician [CONS] Routine Comment: Consulting Provider: INDRA VARGHESE Physician Instructions: Reason For Exam: hd. Primary care physician: HAVEN PRO MD Hospitalization Reason for admission: ams Condition: Stable Hospital course: 59 YO Female with ESRD on HD(T,R,Sa) last dialyzed 1 week ago, HTN, Depression, RUE DVT on therapeutic anticoagulation, HCV presents to ED for evaluation. Pt states that she has not undergone her scheduled dialysis sessions for the past 1 week. Patient reports that "I feel tired like this when i miss my dialysis". Pt also acknowledges feeling depressed. Pt transported to [facility] via private vehicle. Patient seen and evaluated in ED and found to have ESRD, Acidosis, Hyperkalemia, and Fluid Overload suspected secondary to noncompliance. Patient counslede regarding noncompliance. Nephrology consulted for urgent dialysis. Pt denies fever, chills, CP, Palpitations, NVD, Trauma, SI/HI, BRBPR, unintentional weight loss, night sweats, or recent ill contacts, or known expo sure to COVID-19. Pt placed in observation status and admitted to medical floor for medical stabilization due to increased risk of cardiorenal decompensation. Prior admission on 07/10/2019 reviewed. All listed medication reconciled at time of admission. Advanced care planning conducted in ED. Patient kept overnight and reevaluated prior to discharge was initially confused also hypertensive urgency now improved. she was seen Psych, she endorses having her meds and will start to take them. she also refused any c (1) ESRD (end stage renal disease) Current Visit: Yes Status: Acute Plan to address problem: Strict I's/O, monitor urine output every shift, nephrology team consulted in ED for urgent dialysis, avoid nephrotoxic agents. Repeat BMP in a.m. (2) Metabolic acidosis Current Visit: Yes Status: Acute Plan to address problem: Supportive care, urgent dialysis, IV bicarbonate therapy. Repeat BMP in a.m. (3) Noncompliance of patient with renal dialysis Current Visit: Yes Status: Acute Plan to address problem: Patient counseled regarding noncompliance with dialysis. Patient informed that continued noncompliance with dialysis may result in worsening symptoms and premature . Patient knowledges understanding instructions. Behavior change counseling. +15 minutes. (4) Acute hyperkalemia Current Visit: No Status: Acute Plan to address problem: BMP, Kayexalate, calcium chloride, no EKG changes. Urgent dialysis. (5) Acute Metabolic Encephalopathy ?Depression vs metabolic Encephalopathy Mental health consult (6) Hypertensive urgency Adjust bp meds hanges and will follow with her own psychiatrist Disposition: DC-01 TO HOME OR SELFCARE Time spent for discharge: 35 mins Core Measure Documentation - Palliative Care Palliative Care/ Comfort Measures: Not Applicable - Core Measures Any of the following diagnoses?: none Exam - Physical Exam Narrative exam: General appearance: Present: mild distress, obese, intermittently confused - Respiratory Respiratory: bilateral: diminished, rhonchi - Cardiovascular Heart Sounds: Present: S1 & S2. Absent: rub, click - Extremities Extremities: pulses symmetrical, No edema Peripheral Pulses: within normal limits - Abdominal General gastrointestinal: Present: soft, non-tender, non-distended, normal bowel sounds Female genitourinary: Present: normal - Integumentary Integumentary: Present: clear, warm, dry - Musculoskeletal Musculoskeletal: gait normal, strength equal bilaterally - Psychiatric Psychiatric: appropriate mood/affect, intermittent confusion - Neurologic Neurologic: CNII-XII intact, moves all extremities - Constitutional Vitals: Temp Pulse Resp BP Pulse Ox 98.6 F 91 H 18 212/100 99 10/27/19 09:50 10/27/19 09:50 10/27/19 09:50 10/27/19 09:50 10/27/19 07:00 Plan Activity: advance as tolerated, fall precautions Diet: low fat, renal Special Instructions: record daily weights, record daily BP diary, record blood sugar diary Follow up with: PRIMARY CARE, [Referring] - 3-5 Days Forms: Warfarin Discharge Instruction Prescriptions: buPROPion 300 mg PO DAILY #14 Methylphenidate 20 mg PO BID #14 buPROPion XL [Wellbutrin XL] 1 tab PO DAILY #14
[2019-10-27] MEDS ORDERED: SODIUM CHLORIDE*PRIMING MACHINE ONLY FOR DIALYSIS MC ONE (10:53)
[2019-10-27 11:26] LABS: Hepatitis B Surface Antigen Non-Reactive (Negative); Hepatitis C Virus Antibody Reactive (NonReactive)
--- NOTE | 2019-10-27 17:32 | Consultation ---
History of Present Illness - Reason for Consult Consult date: 10/27/19 end stage renal disease - History of Present Illness Patient is a 59yo female with ESRD on HD TTS who presents to the ED in need of dialysis. Patient's last treatment was on October 18. She has severe depression which affects her compliance. She is under the care of psychiatry and medication adjustments have been ongoing. She is seen s/p dialysis. She denies nausea, vomiting, SOB. However, she states "I just don't feel like myself". She is slow to respond to questions but responds appropriately. Past History Past Medical History: DVT, ESRD, hypertension, other (See HPI) Past Surgical History: Other (Dialysis access) Social history: . denies: smoking, alcohol abuse, prescription drug abuse Family history: diabetes, hypertension Medications and Allergies Allergies Allergy/AdvReac Type Severity Reaction Status Date / Time No Known Allergies Allergy Verified 05/18/18 18:12 Home Medications Medication Instructions Recorded Confirmed Last Taken Type Latanoprost 0.005% 2 drops OU QHS #1 bottle 10/29/18 10/27/19 12/08/18 21:00 Rx Pantoprazole [Protonix TAB] 40 mg PO QDAY #30 tablet 10/29/18 10/27/19 12/09/18 06:00 Rx allopurinoL [Zyloprim] 100 mg PO DAILY #30 tablet 10/29/18 10/27/19 08/07/19 Rx amLODIPine 10 mg PO QDAY #30 tablet 10/29/18 10/27/19 08/07/19 Rx carvediloL [Coreg] 25 mg PO BID #60 tablet 10/29/18 10/27/19 08/07/19 Rx Valsartan [Diovan] 160 mg PO DAILY 12/01/18 10/27/19 08/07/19 History Brimonidine/Timolol 0.2-0.5% 1 drop BID 07/10/19 10/27/19 Unknown History [Combigan 0.2-0.5%] Ergocalciferol [Vitamin D2] 1 tab PO 1XW 07/10/19 10/27/19 Unknown History Sodium Bicarbonate 2 tab PO BID 07/10/19 10/27/19 08/07/19 History Tums 500MG CHEW 1 tab PO AC 07/10/19 10/27/19 Unknown History Venlafaxine HCl [Venlafaxine] 100 mg PO BID 07/10/19 10/27/19 Unknown History Vit B Comp No.3/Folic/C/Biotin 1 tab PO DAILY 07/10/19 10/27/19 Unknown History [Jane-Jagruti Rx Tablet] lamoTRIgine [LaMICtal] 1 tab PO DAILY 07/10/19 10/27/19 Unknown History Bimatoprost [Lumigan] 2 drops OU QDAY 10/27/19 10/27/19 Unknown History Calcium Acetate 667 mg PO TID 10/27/19 10/27/19 Unknown History Methylphenidate 20 mg PO BID #14 10/27/19 Unknown Rx Warfarin [Coumadin] 7.5 mg PO QDAY@1700 tablet 10/27/19 Unknown Rx buPROPion 300 mg PO DAILY #14 10/27/19 Unknown Rx buPROPion XL [Wellbutrin XL] 1 tab PO DAILY #14 10/27/19 Unknown Rx Active Meds: Active Medications Acetaminophen (Tylenol) 650 mg PO Q4H PRN PRN Reason: Pain MILD(1-3)/Fever >100.5/DERAS Allopurinol (Zyloprim) 100 mg PO DAILY [facility] Amlodipine Besylate (Amlodipine) 10 mg PO QDAY [facility] Brimonidine/Timolol (Combigan 0.2-0.5%) 1 drops OD BID [facility] Last Admin: 10/26/19 23:52 Dose: 1 drops Documented by: Bupropion HCl (Wellbutrin Xl) 150 mg PO DAILY [facility] Calcium Carbonate/Glycine (Tums) 500 mg PO AC [facility] Last Admin: 10/27/19 07:44 Dose: 500 mg Documented by: Carvedilol (Coreg) 25 mg PO BID [facility] Last Admin: 10/26/19 23:54 Dose: 25 mg Documented by: Ergocalciferol (Vitamin D2) 50,000 unit PO Th [facility] Last Admin: 10/26/19 21:36 Dose: 50,000 unit Documented by: Hydralazine HCl (Apresoline) 10 mg IV Q6H PRN PRN Reason: Hypertension Last Admin: 10/27/19 10:59 Dose: 10 mg Documented by: Sodium Chloride (Nacl 0.9%) 100 mls @ 999 mls/hr IV VANESSA PRN PRN Reason: Hypotension Lamotrigine (Lamictal) 100 mg PO DAILY [facility] Latanoprost (Latanoprost 0.005%) 2 drops OU QHS [facility] Last Admin: 10/26/19 23:51 Dose: 2 drops Documented by: Methylphenidate HCl (Ritalin) 20 mg PO BID [facility] Multivit/Ca Carb/B Cmplx/FA/Prenat (Renal Caps) 1 cap PO QDAY [facility] Ondansetron HCl (Zofran) 4 mg IV Q8H PRN PRN Reason: Nausea And Vomiting Pantoprazole Sodium (Protonix) 40 mg PO QDAY [facility] Sodium Bicarbonate (Sodium Bicarbonate) 1,300 mg PO BID [facility] Last Admin: 10/26/19 23:54 Dose: 1,300 mg Documented by: Sodium Chloride (Sodium Chloride Flush Syringe 10 Ml) 10 ml IV BID [facility] Last Admin: 10/27/19 00:04 Dose: 10 ml Documented by: Sodium Chloride (Sodium Chloride Flush Syringe 10 Ml) 10 ml IV PRN PRN PRN Reason: LINE FLUSH Valsartan (Diovan) 160 mg PO QDAY [facility] Venlafaxine HCl (Effexor) 75 mg PO BID [facility] Venlafaxine HCl (Effexor) 25 mg PO BID [facility] Warfarin Sodium (Coumadin) 7.5 mg PO QDAY@1700 [facility]; Protocol Review of Systems All systems: negative Exam - Vital Signs Vital signs: Vital Signs Temp Pulse Resp BP Pulse Ox 97.8 F 83 20 205/105 97 10/26/19 14:57 10/26/19 14:57 10/26/19 14:57 10/26/19 14:57 10/26/19 14:57 - General Appearance General appearance: well-developed, well-nourished EENT: ATNC Respiratory: Clear to Ascultation Heart: regular, S1S2 Gastrointestinal: Present: normal. Absent: tenderness, distended Integumentary: no rash, warm and dry Neurologic: other (awake, alert, delay in response to questions) Psychiatric: cooperative Results - Lab Results 10/26/19 15:10 10/27/19 03:56 Most recent lab results Calcium 8.4 mg/dL (8.4-10.2) 10/27/19 03:56 Phosphorus 7.50 mg/dL (2.5-4.5) H 10/26/19 15:10 Assessment and Plan Impression: * End stage renal disease on HD * Uremia * Hyperkalemia, mild * Hypertension * Anemia secondary to ESRD * Secondary hyperparathyroidism * Depression, severe Plan: * Patent is s/p HD today - missed HD x 1 week (patient w/ severe depression which affects her compliance; she is under the care of psychiatry) * Mental status sluggish - delay in responding to questions, ? secondary to disequilibrium syndrome following HD vs uremia * Will plan for HD tomorrow * Resume home antiHTN medications * Hold Epogen until BP controlled * Renal diet * Recommend holding discharge in light of SBP 190s and altered mental status. Discussed with Dr. Reyes who agrees
[2019-10-27] MEDS: amLODIPine 10 MG TAB PO SCH (17:50)
[2019-10-27] MEDS: VALSARTAN 160MG TAB PO SCH (17:51)
[2019-10-27] MEDS: carvediloL 25 MG TAB PO SCH ×2 (17:51→23:30)
[2019-10-27] MEDS: COMBIGAN 0.2-0.5% OPHTH SOLN OD SCH ×2 (17:51→23:27)
[2019-10-27] MEDS: VENLAFAXINE 75 MG TAB PO SCH ×2 (17:51→23:29)
[2019-10-27] MEDS: VENLAFAXINE 25 MG TAB PO SCH ×2 (17:52→23:30)
[2019-10-27] MEDS: lamoTRIgine 100 MG TAB PO SCH (17:52)
[2019-10-27] MEDS: METHYLPHENIDATE 5 MG TAB PO SCH ×2 (17:53→23:32)
[2019-10-27] MEDS: FOLIC ACID/VIT B COMP W-C 1 MG (RENAL CAPS) PO SCH (17:53)
[2019-10-27] MEDS: PANTOPRAZOLE 40 MG TAB PO SCH (17:53)
[2019-10-27] MEDS: SODIUM BICARBONATE 650 MG TAB PO SCH ×2 (17:54→23:28)
[2019-10-27] MEDS: buPROPion XL 150 MG TAB PO SCH (17:55)
[2019-10-27] MEDS: allopurinoL 100 MG TAB PO SCH (17:55)
[2019-10-27] MEDS ORDERED: ONDANSETRON 4 MG/2 ML INJ ONE (19:23)
[2019-10-27] MEDS: ONDANSETRON 4 MG/2 ML INJ IV PRN (19:24)
[2019-10-27] MEDS ORDERED: carvediloL 25 MG TAB ONE ×2 (23:26→23:36)
[2019-10-27] MEDS: LATANOPROST 0.005% OPHTH SOLN 2.5 ML OU SCH (23:27)
[2019-10-28 05:38] LABS: INR 1.13 (0.87-1.13)
--- NOTE | 2019-10-28 07:27 | Progress Note ---
Assessment and Plan Assessment and plan: 59 YO Female with ESRD on HD(T,R,Sa) last dialyzed 1 week ago, HTN, Depression, RUE DVT on therapeutic anticoagulation, HCV presents to ED for evaluation. Pt states that she has not undergone her scheduled dialysis sessions for the past 1 week. Patient reports that "I feel tired like this when i miss my dialysis". Pt also acknowledges feeling depressed. Pt transported to [facility] via private vehicle. Patient seen and evaluated in ED and found to have ESRD, Acidosis, Hyperkalemia, and Fluid Overload suspected secondary to noncompliance. Patient counslede regarding noncompliance. Nephrology consulted for urgent dialysis. Pt denies fever, chills, CP, Palpitations, NVD, Trauma, SI/HI, BRBPR, unintent ional weight loss, night sweats, or recent ill contacts, or known exposure to COVID-19. Pt placed in observation status and admitted to medical floor for medical stabilization due to increased risk of cardiorenal decompensation. Prior admission on 07/10/2019 reviewed. All listed medication reconciled at time of admission. Advanced care planning conducted in ED. (1) ESRD (end stage renal disease) Current Visit: Yes Status: Acute Plan to address problem: Strict I's/O, monitor urine output every shift, nephrology team consulted in ED for urgent dialysis, avoid nephrotoxic agents. Repeat BMP in a.m. (2) Metabolic acidosis Current Visit: Yes Status: Acute Plan to address problem: Supportive care, urgent dialysis, IV bicarbonate therapy. Repeat BMP in a.m. (3) Noncompliance of patient with renal dialysis Current Visit: Yes Status: Acute Plan to address problem: Patient counseled regarding noncompliance with dialysis. Patient informed that continued noncompliance with dialysis may result in worsening symptoms and premature . Patient knowledges understanding instructions. Behavior change counseling. +15 minutes. (4) Acute hyperkalemia Current Visit: No Status: Acute Plan to address problem: BMP, Kayexalate, calcium chloride, no EKG changes. Urgent dialysis. (5) Acute Metabolic Encephalopathy ?Depression vs metabolic Encephalopathy Mental health consult CT head Will need to observe more (6) Hypertensive urgency Adjust bp meds (7) DVT prophylaxis Current Visit: Yes Status: Acute Plan to address problem: SCD to bilateral lower extremities while in bed, continue therapeutic anticoagulation. (6) Advance care planning Current Visit: Yes Status: Acute Plan to address problem: Disease education conducted, patient is full code, patient counseled regarding noncompliance with dialysis, patient acknowledges understanding and agreement with care plan. +30 minutes. Discussed with Nuclear Reactor Technician, Will monitor overnight and obtain consult from mental health in am History Interval history: Patient seen and examined, Hospitalist Physical - Physical exam Narrative exam: General appearance: Present: mild distress, obese, intermittently confused - Respiratory Respiratory: bilateral: diminished, rhonchi - Cardiovascular Heart Sounds: Present: S1 & S2. Absent: rub, click - Extremities Extremities: pulses symmetrical, No edema Peripheral Pulses: within normal limits - Abdominal General gastrointestinal: Present: soft, non-tender, non-distended, normal bowel sounds Female genitourinary: Present: normal - Integumentary Integumentary: Present: clear, warm, dry - Musculoskeletal Musculoskeletal: gait normal, strength equal bilaterally - Psychiatric Psychiatric: appropriate mood/affect, intermittent confusion - Neurologic Neurologic: CNII-XII intact, moves all extremities - Constitutional Vitals: Temp Pulse Resp BP Pulse Ox 97.8 F 95 H 18 135/65 90 10/28/19 03:44 10/28/19 03:44 10/28/19 03:44 10/28/19 03:44 10/28/19 03:44 General appearance: Present: mild distress, obese Results - Labs CBC & Chem 7: 10/26/19 15:10 10/27/19 03:56 Labs: Laboratory Last Values WBC 6.2 K/mm3 (4.5-11.0) 10/26/19 15:10 RBC 4.65 M/mm3 (3.65-5.03) 10/26/19 15:10 Hgb 11.0 gm/dl (10.1-14.3) 10/26/19 15:10 Hct 35.3 % (30.3-42.9) 10/26/19 15:10 MCV 76 fl (79-97) L 10/26/19 15:10 MCH 24 pg (28-32) L 10/26/19 15:10 MCHC 31 % (30-34) 10/26/19 15:10 RDW 19.2 % (13.2-15.2) H 10/26/19 15:10 Plt Count 295 K/mm3 (140-440) 10/26/19 15:10 PT 14.6 Sec. (12.2-14.9) 10/28/19 04:28 INR 1.13 (0.87-1.13) 10/28/19 04:28 Sodium 142 mmol/L (137-145) 10/27/19 03:56 Potassium 5.4 mmol/L (3.6-5.0) H 10/27/19 03:56 Chloride 104.8 mmol/L (98-107) 10/27/19 03:56 Carbon Dioxide 15 mmol/L (22-30) L 10/27/19 03:56 Anion Gap 28 mmol/L 10/27/19 03:56 BUN 105 mg/dL (7-17) H 10/27/19 03:56 Creatinine 11.0 mg/dL (0.7-1.2) H 10/27/19 03:56 Estimated GFR 4 ml/min 10/27/19 03:56 BUN/Creatinine Ratio 10 % 10/27/19 03:56 Glucose 100 mg/dL (65-100) 10/27/19 03:56 Calcium 8.4 mg/dL (8.4-10.2) 10/27/19 03:56 Phosphorus 7.50 mg/dL (2.5-4.5) H 10/26/19 15:10 NT-Pro-B Natriuret Pep 3911 pg/mL (0-900) H 10/26/19 15:10 Hepatitis A IgM Ab Non-reactive (NonReactive) 10/27/19 08:53 Hep Bs Antigen Non-reactive (Negative) 10/27/19 08:53 Hep B Core IgM Ab Non-reactive (NonReactive) 10/27/19 08:53 Hepatitis C Antibody Reactive (NonReactive) A 10/27/19 08:53 Mc/IV: Voiding Method Toilet IV Catheter Type [Right INT / Saline Lock Subclavian] Active Medications - Current Medications Current Medications: Generic Name Dose Route Start Last Admin Trade Name Freq PRN Reason Stop Dose Admin Acetaminophen 650 mg 10/26/19 18:14 Tylenol PO Q4H PRN Pain MILD(1-3)/Fever >100.5/DERAS Allopurinol 100 mg 10/27/19 10:00 10/27/19 17:55 Zyloprim PO Not Given DAILY [facility] Amlodipine Besylate 10 mg 10/27/19 10:00 10/27/19 17:50 Amlodipine PO Not Given QDAY [facility] Brimonidine/Timolol 1 drops 10/26/19 22:00 10/27/19 23:27 Combigan 0.2-0.5% OD 1 drops BID [facility] Administration Bupropion HCl 150 mg 10/27/19 10:00 10/27/19 17:55 Wellbutrin Xl PO Not Given DAILY [facility] Calcium Carbonate/Glycine 500 mg 10/27/19 07:30 10/27/19 18:15 Tums PO 500 mg AC [facility] Administration Carvedilol 25 mg 10/26/19 22:00 10/27/19 23:30 Coreg PO 25 mg BID [facility] Administration Ergocalciferol 50,000 unit 10/26/19 19:00 10/26/19 21:36 Vitamin D2 PO 50,000 unit Th [facility] Administration Hydralazine HCl 10 mg 10/27/19 01:07 10/27/19 10:59 Apresoline IV 10 mg Q6H PRN Administration Hypertension Sodium Chloride 100 mls @ 999 mls/hr 10/27/19 08:18 Nacl 0.9% IV VANESSA PRN Hypotension Lamotrigine 100 mg 10/27/19 10:00 10/27/19 17:52 Lamictal PO Not Given DAILY [facility] Latanoprost 2 drops 10/26/19 22:00 10/27/19 23:27 Latanoprost 0.005% OU 2 drops QHS [facility] Administration Methylphenidate HCl 20 mg 10/27/19 10:00 10/27/19 23:32 Ritalin PO 20 mg BID [facility] Administration Multivit/Ca Carb/B Cmplx/FA/Prenat 1 cap 10/27/19 10:00 10/27/19 17:53 Renal Caps PO Not Given QDAY [facility] Ondansetron HCl 4 mg 10/26/19 18:14 10/27/19 19:24 Zofran IV 4 mg Q8H PRN Administration Nausea And Vomiting Pantoprazole Sodium 40 mg 10/27/19 10:00 10/27/19 17:53 Protonix PO Not Given QDAY [facility] Sodium Bicarbonate 1,300 mg 10/26/19 22:00 10/27/19 23:28 Sodium Bicarbonate PO 1,300 mg BID [facility] Administration Sodium Chloride 10 ml 10/26/19 22:00 10/27/19 17:55 Sodium Chloride Flush Syringe 10 Ml IV Not Given BID [facility] Sodium Chloride 10 ml 10/26/19 18:14 Sodium Chloride Flush Syringe 10 Ml IV PRN PRN LINE FLUSH Valsartan 160 mg 10/27/19 10:00 10/27/19 17:51 Diovan PO Not Given QDAY [facility] Venlafaxine HCl 75 mg 10/27/19 10:00 10/27/19 23:29 Effexor PO 75 mg BID [facility] Administration Venlafaxine HCl 25 mg 10/27/19 10:00 10/27/19 23:30 Effexor PO 25 mg BID [facility] Administration Warfarin Sodium 7.5 mg 10/27/19 17:00 Coumadin PO QDAY@1700 [facility] Protocol Nutrition/Malnutrition Assess - Dietary Evaluation Nutrition/Malnutrition Findings: Nutrition Notes Start: 10/27/19 09:39 Freq: Status: Active Protocol: Document 10/27/19 09:39 LM (Rec: 10/27/19 09:39 LM [email or web address]) Nutrition Notes Initial or Follow up Brief Note Subjective/Other Information Screen for DNI. Pt in ED. Nutrition Intervention Follow-Up By: 10/30/19
[2019-10-28] MEDS: CALCIUM CARBONATE 500 MG TAB CHEW PO SCH ×3 (08:42→17:48)
[2019-10-28] MEDS: lamoTRIgine 100 MG TAB PO SCH (09:48)
[2019-10-28] MEDS: FOLIC ACID/VIT B COMP W-C 1 MG (RENAL CAPS) PO SCH (09:48)
[2019-10-28] MEDS: VALSARTAN 160MG TAB PO SCH (09:49)
[2019-10-28] MEDS: allopurinoL 100 MG TAB PO SCH (09:49)
[2019-10-28] MEDS: SODIUM BICARBONATE 650 MG TAB PO SCH (09:49)
[2019-10-28] MEDS: VENLAFAXINE 75 MG TAB PO SCH (09:49)
[2019-10-28] MEDS: METHYLPHENIDATE 5 MG TAB PO SCH (09:50)
[2019-10-28] MEDS: buPROPion XL 150 MG TAB PO SCH (09:50)
[2019-10-28] MEDS: PANTOPRAZOLE 40 MG TAB PO SCH (09:51)
[2019-10-28] MEDS: carvediloL 25 MG TAB PO SCH (09:51)
[2019-10-28] MEDS: COMBIGAN 0.2-0.5% OPHTH SOLN OD SCH (09:52)
[2019-10-28] MEDS: amLODIPine 10 MG TAB PO SCH (09:52)
--- NOTE | 2019-10-28 11:12 | Consultation ---
History of Present Illness - Reason for Consult Consult date: 10/28/19 Reason for consult: MHE Requesting physician: LON ARMSTRONG - Chief Complaint Chief complaint: Im feeling down - History of Present Psychiatric Illness Per ED Provider Note: Patient is a 59-year-old female that presents emergency room with need of dialysis. Patient states she is feeling tired. Patient s tates when she misses dialysis feels tired. Patient also states she is feeling depressed. Patient denies suicidal homicidal ideations. Patient denies hallucinations. Patient states she is just feeling down. Patient states her depression is caused her to miss dialysis. Patient states her last dialysis was on 10/19/2019. Patient states she goes Wednesday. Patient denies chest pain. Patient denies shortness of breath. Patient denies fever and chills. Patient denies swelling. HPI Patient is a 59-year-old disabled -[place] female with past psychiatric history of depression who presented to the ER for concerns about dialysis. Patient reports she is on dialysis and she has been very depressed lately and was unable to leave the house for dialysis. She reports noncompliance with her medications, she recently picked them up but has not been taking it. She reports the main superintendent meter tests and perpetrating factor for depressed mood is mos tly helped the fact that she is currently on dialysis and she does not like it. She denies SI HI, endorses passive thoughts about suicidal ideation but does not want to kill self. Patient report that she sees Dr. Suero outpatient at least once in 3 months and currently lives with daughter who has been supportive. She denies any side effects or medications complaints today. She denies any aud itory or visual hallucination. Patient is alert and oriented to time person and place. Pt states she likes her current meds and does not want any changes at the moment. PAST PSYCHIATRIC HISTORY Diagnoses: MDD Suicide attempts or Self-harm behavior: None reported Prior psychiatric hospitalizations: Yes Substance Abuse history: None reported Previous psychiatric medications tried: Yes Outpatient treatment: None reported PAST MEDICAL HISTORY: Family Psychiatric History: None reported or documented SOCIAL HISTORY Marital Status: Living Arrangements: At home with daughter Employment Status: Disabled Access to guns/weapons: None reported Education: None reported History of Abuse: None reported Legal History: None reported REVIEW OF SYSTEMS Constitutional: Negative for weight loss ENT: Negative for stridor Respiratory: Negative for cough or hemoptysis All other systems reviewed and are negative MENTAL STATUS EXAMINATION General Appearance and Behavior: Age appropriate, good hygiene, wearing appropriate clothes, lying in bed, good eye contact, cooperative with questioning and polite. Cooperation: Participating/engaged Psychomotor Behavior: unremarkable and within normal limits Mood: Good Affect and affective range: euphoric Thought Process: Fluent/Logical Thought Content: Within reality Speech: Normal volume, Regular rate and rhythm Intellectual Functioning: Average Suicidal Ideation: Denies SI Homicidal Ideation: Denies HI Impulse Control: Unimpaired Insight and Judgment: Normal insight and judgment Memory: Normal Attention: Normal Orientation: Alert, oriented, Assessment and Plan - Psychiatric problem (1) MDD (major depressive disorder) Current Visit: Yes Status: Acute RECOMMENDATIONS MEDICATIONS: None at this time. Risks, benefits and alternatives of medications discussed with the patient, q uestions answered and consent obtained from patient. PSYCHOTHERAPY: Supportive psychotherapy provided MEDICAL: Per primary team DELIRIUM PRECAUTIONS: Please re-orient patient frequently, keep lights on during the day, and minimize benzodiazepines and opiates as these medications could worsen patient's confusion. CHART READER: None indicated DISPOSITION: Per primary team; no indication for acute inpatient psychiatric hospitalization at this time LEGAL STATUS: Voluntary FOLLOW-UP: Will sign off. Thank you for the consult. Please contact with any questions and/or concerns. Medications and Allergies Allergies Allergy/AdvReac Type Severity Reaction Status Date / Time No Known Allergies Allergy Verified 05/18/18 18:12 Home Medications Medication Instructions Recorded Confirmed Last Taken Type Latanoprost 0.005% 2 drops OU QHS #1 bottle 10/29/18 10/27/19 12/08/18 21:00 Rx Pantoprazole [Protonix TAB] 40 mg PO QDAY #30 tablet 10/29/18 10/27/19 12/09/18 06:00 Rx allopurinoL [Zyloprim] 100 mg PO DAILY #30 tablet 10/29/18 10/27/19 08/07/19 Rx amLODIPine 10 mg PO QDAY #30 tablet 10/29/18 10/27/19 08/07/19 Rx carvediloL [Coreg] 25 mg PO BID #60 tablet 10/29/18 10/27/19 08/07/19 Rx Valsartan [Diovan] 160 mg PO DAILY 06/10/27/19 08/07/19 History Brimonidine/Timolol 0.2-0.5% 1 drop BID 07/10/19 10/27/19 Unknown History [Combigan 0.2-0.5%] Ergocalciferol [Vitamin D2] 1 tab PO 1XW 07/10/19 10/27/19 Unknown History Sodium Bicarbonate 2 tab PO BID 07/10/19 10/27/19 08/07/19 History Tums 500MG CHEW 1 tab PO AC 07/10/19 10/27/19 Unknown History Venlafaxine HCl [Venlafaxine] 100 mg PO BID 07/10/19 10/27/19 Unknown History Vit B Comp No.3/Folic/C/Biotin 1 tab PO DAILY 07/10/19 10/27/19 Unknown History [Jane-Jagruti Rx Tablet] lamoTRIgine [LaMICtal] 1 tab PO DAILY 07/10/19 10/27/19 Unknown History Bimatoprost [Lumigan] 2 drops OU QDAY 10/27/19 10/27/19 Unknown History Calcium Acetate 667 mg PO TID 10/27/19 10/27/19 Unknown History Methylphenidate 20 mg PO BID #14 10/27/19 Unknown Rx Warfarin [Coumadin] 7.5 mg PO QDAY@1700 tablet 10/27/19 Unknown Rx buPROPion 300 mg PO DAILY #14 10/27/19 Unknown Rx buPROPion XL [Wellbutrin XL] 1 tab PO DAILY #14 10/27/19 Unknown Rx Active Meds: Active Medications Acetaminophen (Tylenol) 650 mg PO Q4H PRN PRN Reason: Pain MILD(1-3)/Fever >100.5/DERAS Allopurinol (Zyloprim) 100 mg PO DAILY [facility] Last Admin: 10/28/19 09:49 Dose: 100 mg Documented by: Amlodipine Besylate (Amlodipine) 10 mg PO QDAY [facility] Last Admin: 10/28/19 09:52 Dose: 10 mg Documented by: Brimonidine/Timolol (Combigan 0.2-0.5%) 1 drops OD BID [facility] Last Admin: 10/28/19 09:52 Dose: 1 drops Documented by: Bupropion HCl (Wellbutrin Xl) 150 mg PO DAILY [facility] Last Admin: 10/28/19 09:50 Dose: 150 mg Documented by: Calcium Carbonate/Glycine (Tums) 500 mg PO AC [facility] Last Admin: 10/28/19 08:42 Dose: 500 mg Documented by: Carvedilol (Coreg) 25 mg PO BID [facility] Last Admin: 10/28/19 09:51 Dose: 25 mg Documented by: Ergocalciferol (Vitamin D2) 50,000 unit PO Th [facility] Last Admin: 10/26/19 21:36 Dose: 50,000 unit Documented by: Hydralazine HCl (Apresoline) 10 mg IV Q6H PRN PRN Reason: Hypertension Last Admin: 10/27/19 10:59 Dose: 10 mg Documented by: Sodium Chloride (Nacl 0.9%) 100 mls @ 999 mls/hr IV VANESSA PRN PRN Reason: Hypotension Lamotrigine (Lamictal) 100 mg PO DAILY [facility] Last Admin: 10/28/19 09:48 Dose: 100 mg Documented by: Latanoprost (Latanoprost 0.005%) 2 drops OU QHS [facility] Last Admin: 10/27/19 23:27 Dose: 2 drops Documented by: Methylphenidate HCl (Ritalin) 20 mg PO BID [facility] Last Admin: 10/28/19 09:50 Dose: 20 mg Documented by: Multivit/Ca Carb/B Cmplx/FA/Prenat (Renal Caps) 1 cap PO QDAY [facility] Last Admin: 10/28/19 09:48 Dose: 1 cap Documented by: Ondansetron HCl (Zofran) 4 mg IV Q8H PRN PRN Reason: Nausea And Vomiting Last Admin: 10/27/19 19:24 Dose: 4 mg Documented by: Pantoprazole Sodium (Protonix) 40 mg PO QDAY [facility] Last Admin: 10/28/19 09:51 Dose: 40 mg Documented by: Sodium Bicarbonate (Sodium Bicarbonate) 1,300 mg PO BID [facility] Last Admin: 10/28/19 09:49 Dose: 1,300 mg Documented by: Sodium Chloride (Sodium Chloride Flush Syringe 10 Ml) 10 ml IV BID [facility] Last Admin: 10/27/19 17:55 Dose: Not Given Documented by: Sodium Chloride (Sodium Chloride Flush Syringe 10 Ml) 10 ml IV PRN PRN PRN Reason: LINE FLUSH Valsartan (Diovan) 160 mg PO QDAY [facility] Last Admin: 10/28/19 09:49 Dose: 160 mg Documented by: Venlafaxine HCl (Effexor) 75 mg PO BID [facility] Last Admin: 10/28/19 09:49 Dose: 75 mg Documented by: Venlafaxine HCl (Effexor) 25 mg PO BID [facility] Last Admin: 10/27/19 23:30 Dose: 25 mg Documented by: Warfarin Sodium (Coumadin) 7.5 mg PO QDAY@1700 [facility]; Protocol Mental Status Exam - Vital signs Last Vital Signs Temp 97.5 F L 10/28/19 07:52 Pulse 93 H 10/28/19 07:52 Resp 18 10/28/19 07:52 BP 169/78 10/28/19 07:52 Pulse Ox 96 10/28/19 09:27 Results Result Diagrams: 10/26/19 15:10 10/27/19 03:56 Abnormal lab results 10/27/19 Range/Units 08:53 Hepatitis C Antibody Reactive A (NonReactive) All other labs normal. Assessment and Plan - Psychiatric problem (1) MDD (major depressive disorder) Current Visit: Yes Status: Acute
[2019-10-28] MEDS ORDERED: SODIUM CHLORIDE 0.9% 100 ML IV PRN (11:20)
[2019-10-28] MEDS ORDERED: SODIUM CHLORIDE*PRIMING MACHINE ONLY FOR DIALYSIS MC ONE (12:50)
[2019-10-28] MEDS: ONDANSETRON 4 MG/2 ML INJ IV PRN (12:57)
[2019-10-28] MEDS: WARFARIN 7.5 MG TAB PO SCH ×2 (15:31→17:47)
--- NOTE | 2019-10-28 16:03 | Progress Note ---
Assessment and Plan Impression: * End stage renal disease on HD * Uremia * Hyperkalemia, mild * Hypertension * Anemia secondary to ESRD * Secondary hyperparathyroidism * Depression, severe Plan: * Patent is s/p HD yesterday. Mental status improved today * HD again today. UF as tolerated * Continue home antiHTN medications * Hold Epogen until BP controlled * Renal diet * Stable for d/c from a renal standpoint Subjective Date of service: 10/28/19 Interval history: Patient seen following dialysis today. She states that she is feeling better. States that she feels less confused. Objective - Vital Signs Vital signs: Vital Signs - 12hr 10/28/19 10/28/19 10/28/19 07:52 09:27 12:05 Temperature 97.5 F L 97.6 F Pulse Rate 93 H 80 Respiratory 18 18 Rate Blood Pressure 169/78 107/49 O2 Sat by Pulse 93 96 Oximetry 10/28/19 10/28/19 10/28/19 12:11 12:15 12:30 Temperature Pulse Rate 81 81 79 Respiratory Rate Blood Pressure 121/65 115/57 128/65 O2 Sat by Pulse Oximetry 10/28/19 10/28/19 10/28/19 12:45 13:00 13:15 Temperature Pulse Rate 79 76 72 Respiratory Rate Blood Pressure 140/70 139/73 128/67 O2 Sat by Pulse Oximetry 10/28/19 10/28/19 10/28/19 13:30 13:45 14:00 Temperature Pulse Rate 65 61 69 Respiratory Rate Blood Pressure 146/74 148/78 123/80 O2 Sat by Pulse Oximetry 10/28/19 10/28/19 10/28/19 14:15 14:30 14:45 Temperature Pulse Rate 65 52 L 64 Respiratory Rate Blood Pressure 136/76 132/66 133/60 O2 Sat by Pulse Oximetry 10/28/19 10/28/19 10/28/19 15:00 15:15 15:30 Temperature Pulse Rate 60 63 80 Respiratory Rate Blood Pressure 118/72 114/54 130/72 O2 Sat by Pulse Oximetry - General Appearance General appearance: well-developed, well-nourished EENT: ATNC Respiratory: Present: Clear to Ascultation Cardiology: regular, S1S2 Gastrointestinal: normal, no tenderness, no distended Integumentary: no rash, warm and dry Neurologic: no focal deficit Musculoskeletal: other (no ededma) Psychiatric: cooperative - Lab 10/26/19 15:10 10/27/19 03:56 Most recent lab results Calcium 8.4 mg/dL (8.4-10.2) 10/27/19 03:56 Phosphorus 7.50 mg/dL (2.5-4.5) H 10/26/19 15:10 Medications & Allergies - Medications Allergies/Adverse Reactions: Allergies No Known Allergies Allergy (Verified 05/18/18 18:12) Home Medications: Home Medications Medication Instructions Recorded Confirmed Last Taken Type Latanoprost 0.005% 2 drops OU QHS #1 bottle 10/29/18 10/27/19 12/08/18 21:00 Rx Pantoprazole [Protonix TAB] 40 mg PO QDAY #30 tablet 10/29/18 10/27/19 12/09/18 06:00 Rx allopurinoL [Zyloprim] 100 mg PO DAILY #30 tablet 10/29/18 10/27/19 08/07/19 Rx amLODIPine 10 mg PO QDAY #30 tablet 10/29/18 10/27/19 08/07/19 Rx carvediloL [Coreg] 25 mg PO BID #60 tablet 10/29/18 10/27/19 08/07/19 Rx Valsartan [Diovan] 160 mg PO DAILY 12/01/18 10/27/19 08/07/19 History Brimonidine/Timolol 0.2-0.5% 1 drop BID 07/10/19 10/27/19 Unknown History [Combigan 0.2-0.5%] Ergocalciferol [Vitamin D2] 1 tab PO 1XW 07/10/19 10/27/19 Unknown History Sodium Bicarbonate 2 tab PO BID 07/10/19 10/27/19 08/07/19 History Tums 500MG CHEW 1 tab PO AC 07/10/19 10/27/19 Unknown History Venlafaxine HCl [Venlafaxine] 100 mg PO BID 07/10/19 10/27/19 Unknown History Vit B Comp No.3/Folic/C/Biotin 1 tab PO DAILY 07/10/19 10/27/19 Unknown History [Jane-Jagruti Rx Tablet] lamoTRIgine [LaMICtal] 1 tab PO DAILY 07/10/19 10/27/19 Unknown History Bimatoprost [Lumigan] 2 drops OU QDAY 10/27/19 10/27/19 Unknown History Calcium Acetate 667 mg PO TID 10/27/19 10/27/19 Unknown History Methylphenidate 20 mg PO BID #14 10/27/19 Unknown Rx Warfarin [Coumadin] 7.5 mg PO QDAY@1700 tablet 10/27/19 Unknown Rx buPROPion 300 mg PO DAILY #14 10/27/19 Unknown Rx buPROPion XL [Wellbutrin XL] 1 tab PO DAILY #14 10/27/19 Unknown Rx Active Medications: Generic Name Dose Route Start Last Admin Trade Name Freq PRN Reason Stop Dose Admin Acetaminophen 650 mg 10/26/19 18:14 10/28/19 12:55 Tylenol PO 650 mg Q4H PRN Administration Pain MILD(1-3)/Fever >100.5/DERAS Allopurinol 100 mg 10/27/19 10:00 10/28/19 09:49 Zyloprim PO 100 mg DAILY [facility] Administration Amlodipine Besylate 10 mg 10/27/19 10:00 10/28/19 09:52 Amlodipine PO 10 mg QDAY [facility] Administration Brimonidine/Timolol 1 drops 10/26/19 22:00 10/28/19 09:52 Combigan 0.2-0.5% OD 1 drops BID [facility] Administration Bupropion HCl 150 mg 10/27/19 10:00 10/28/19 09:50 Wellbutrin Xl PO 150 mg DAILY [facility] Administration Calcium Carbonate/Glycine 500 mg 10/27/19 07:30 10/28/19 08:42 Tums PO 500 mg AC [facility] Administration Carvedilol 25 mg 10/26/19 22:00 10/28/19 09:51 Coreg PO 25 mg BID [facility] Administration Ergocalciferol 50,000 unit 10/26/19 19:00 10/26/19 21:36 Vitamin D2 PO 50,000 unit Th [facility] Administration Hydralazine HCl 10 mg 10/27/19 01:07 10/27/19 10:59 Apresoline IV 10 mg Q6H PRN Administration Hypertension Sodium Chloride 100 mls @ 999 mls/hr 10/28/19 11:20 Nacl 0.9% IV VAN[facility]SA PRN Hypotension Lamotrigine 100 mg 10/27/19 10:00 10/28/19 09:48 Lamictal PO 100 mg DAILY [facility] Administration Latanoprost 2 drops 10/26/19 22:00 10/27/19 23:27 Latanoprost 0.005% OU 2 drops QHS [facility] Administration Methylphenidate HCl 20 mg 10/27/19 10:00 10/28/19 09:50 Ritalin PO 20 mg BID [facility] Administration Multivit/Ca Carb/B Cmplx/FA/Prenat 1 cap 10/27/19 10:00 10/28/19 09:48 Renal Caps PO 1 cap QDAY [facility] Administration Ondansetron HCl 4 mg 10/26/19 18:14 10/28/19 12:57 Zofran IV 4 mg Q8H PRN Administration Nausea And Vomiting Pantoprazole Sodium 40 mg 10/27/19 10:00 10/28/19 09:51 Protonix PO 40 mg QDAY [facility] Administration Sodium Bicarbonate 1,300 mg 10/26/19 22:00 10/28/19 09:49 Sodium Bicarbonate PO 1,300 mg BID [facility] Administration Sodium Chloride 10 ml 10/26/19 22:00 10/28/19 15:31 Sodium Chloride Flush Syringe 10 Ml IV Not Given BID [facility] Sodium Chloride 10 ml 10/26/19 18:14 Sodium Chloride Flush Syringe 10 Ml IV PRN PRN LINE FLUSH Valsartan 160 mg 10/27/19 10:00 10/28/19 09:49 Diovan PO 160 mg QDAY [facility] Administration Venlafaxine HCl 75 mg 10/27/19 10:00 10/28/19 09:49 Effexor PO 75 mg BID [facility] Administration Venlafaxine HCl 25 mg 10/27/19 10:00 10/27/19 23:30 Effexor PO 25 mg BID [facility] Administration Warfarin Sodium 7.5 mg 10/27/19 17:00 10/28/19 15:31 Coumadin PO Not Given QDAY@1700 [facility] Protocol
[2019-10-28 16:38] VITALS: BP 128/52
--- NOTE | 2019-10-28 17:38 | Cat Scan Report ---
CT head/brain wo con INDICATION / CLINICAL INFORMATION: 59 years Female; MAIN: ams Wo contrast post dialysis. TECHNIQUE: Routine CT head without contrast. All CT scans at this location are performed using CT dos e reduction for ALARA by means of automated exposure control. COMPARISON: None. FINDINGS: BRAIN / INTRACRANIAL CONTENTS: No acute hemorrhage, mass effect, midline shift, hydrocephalus, or acu te, large territorial infarct. No chronic infarct or atrophy appreciated. No significant white matter abnormality. CRANIOCERVICAL JUNCTION: No significant abnormality. ORBITS: No significant abnormality of visualized orbits. SINUSES / MASTOIDS: There is equal thickening in the hypoplastic mastoid air cells. ADDITIONAL FINDINGS: Atherosclerotic disease is seen in the anterior circulation. IMPRESSION: 1. No focal mass, hemorrhage, hydrocephalus, or acute, large territorial infarct. Signer Name: Eddie Ruelas MD, III Signed: 10/28/2019 5:33 PM Workstation Name: [id number]
[2019-10-28] MEDS: VENLAFAXINE 25 MG TAB PO SCH (17:46)
== END 2019-10-28 20:14 | disposition home or self-care (01) ==
LOC: ED 14:23 → 4A 18:15
PROVIDERS: ADMIT Internal Medicine; ATTEND Internal Medicine
DX: I12.0 Hypertensive chronic kidney disease with stage 5 chronic kidney disease or end stage renal disease (principal); N18.6 End stage renal disease; D63.1 Anemia in chronic kidney disease; E87.5 Hyperkalemia; N25.81 Secondary hyperparathyroidism of renal origin; E87.2 Acidosis; I16.0 Hypertensive urgency; G93.41 Metabolic encephalopathy; F32.9 Major depressive disorder, single episode, unspecified; I82.621 Acute embolism and thrombosis of deep veins of right upper extremity; F17.200 Nicotine dependence, unspecified, uncomplicated; Z91.15 Patient's noncompliance with renal dialysis; Z99.2 Dependence on renal dialysis; Z79.01 Long term (current) use of anticoagulants; Z79.899 Other long term (current) drug therapy; Z71.6 Tobacco abuse counseling
CPT/HCPCS: 36415; 70450; 71046; 80048; 80074; 83880; 84100; 85027; 85610; 93005; 94660; 96374; 96375; 96376; 99291; 99406; G0257; G0378; J0360; J2405; J7030; 82962

== ENCOUNTER 2020-03-20 12:43 | Outpatient (CLI) | payer MEDICARE ==
[2020-03-20 13:28] LABS: Calcium 9.5 mg/dL (8.4-10.2)
== END 2020-03-20 12:44 | disposition home or self-care (01) ==
LOC: LAB 12:43
PROVIDERS: ATTEND Internal Medicine Nephrology
DX: N18.4 Chronic kidney disease, stage 4 (severe) (principal)
CPT/HCPCS: 36415; 80048

== ENCOUNTER 2020-06-17 13:00 | Observation (INO) | payer MEDICARE ==
--- NOTE | 2020-06-17 13:27 | Emergency Department Report ---
Blank Doc - Documentation Documentation: 59-year-old female that presents with chest pain and SOB. Was admitted and told has blood clots. This initial assessment/diagnostic orders/clinical plan/treatment(s) is/are subject to change based on patient's health status, clinical progression and re- assessment by fellow clinical providers in the ED. Further treatment and workup at subsequent clinical providers discretion. Patient/guardians urged not to elope from the ED as their condition may be serious if not clinically assessed and managed. Initial orders include: 1- Patient sent to [facility] for further evaluation and treatment 2- cardiac work
--- NOTE | 2020-06-17 15:05 | XRay Report ---
CHEST 2 VIEWS INDICATION / CLINICAL INFORMATION: Chest Pain. COMPARISON: 05/30/2020 FINDINGS: SUPPORT DEVICES: None. HEART / MEDIASTINUM: Remains moderately enlarged LUNGS / PLEURA: Mild increased interstitial markings with tiny right pleural effusion No pneumothorax . ADDITIONAL FINDINGS: No significant additional findings. IMPRESSION: 1. Mild CHF Signer Name: Antwan Laura MD Signed: 06/17/2020 3:01 PM Workstation Name: [id number]
[2020-06-17 15:36] LABS: Partial Thromboplastin Time 29.1 Sec. (24.2-36.6)
[2020-06-17 15:40] LABS: Mean Corpuscular HGB Conc 30 % (30-34); Mean Corpuscular Volume 77 fl (79-97); Platelet Count 237 K/mm3 (140-440); Red Blood Count 5.49 M/mm3 (3.65-5.03)
[2020-06-17 15:42] LABS: Hemoglobin 12.8 gm/dl (10.1-14.3); Red Cell Distribution Width 20.4 % (13.2-15.2)
[2020-06-17 15:54] LABS: Albumin 4.4 g/dL (3.9-5); Calcium 9.5 mg/dL (8.4-10.2)
--- NOTE | 2020-06-17 17:09 | Emergency Department Report ---
ED Shortness of Breath HPI - General Chief Complaint: Chest Pain Stated Complaint: SOB/SEEN HER 1 WEEK AGO Time Seen by Provider: 06/17/20 13:26 Source: patient Mode of arrival: Wheelchair Limitations: No Limitations - History of Present Illness Initial Comments: 59-year-old female, history of hypertension, ESRD, right upper extremity DVT, presents to ED with increasing dyspnea on exertion for the last 3 to 4 days. Patient states she was last dialyzed 2 days ago. She denies any extremity swelling. She is currently on Coumadin for her upper extremity DVT. Patient denies any cough or fever. Patient states she began having some chest pressure today, but states "it's not that bad". She denies any chest pain at this time. During patient's hospital admission last month she reports being testing negative for COVID-19. MD Complaint: shortness of breath -: days(s) (4) Severity: moderate Consistency: intermittent Improves With: rest Worsens With: exertion Associated Symptoms: chest pain Treatments Prior to Arrival: none - Related Data Home Oxygen Therapy: No Home Medications Medication Instructions Recorded Confirmed Last Taken Valsartan [Diovan] 160 mg PO DAILY 12/01/18 05/30/20 08/07/19 Brimonidine/Timolol 0.2-0.5% 1 drop BID 07/10/19 05/30/20 Unknown [Combigan 0.2-0.5%] Ergocalciferol [Vitamin D2] 1 tab PO 1XW 07/10/19 05/30/20 Unknown Sodium Bicarbonate 2 tab PO BID 07/10/19 05/30/20 08/07/19 Tums 500MG CHEW 1 tab PO AC 07/10/19 05/30/20 Unknown Venlafaxine HCl [Venlafaxine] 100 mg PO BID 07/10/19 05/30/20 Unknown Vit B Comp No.3/Folic/C/Biotin 1 tab PO DAILY 07/10/19 05/30/20 Unknown [Jane-Jagruti Rx Tablet] lamoTRIgine [LaMICtal] 1 tab PO DAILY 07/10/19 05/30/20 Unknown Bimatoprost [Lumigan] 2 drops OU QDAY 10/27/19 05/30/20 Unknown Calcium Acetate 667 mg PO TID 10/27/19 05/30/20 Unknown Previous Rx's Medication Instructions Recorded Last Taken Type Latanoprost 0.005% 2 drops OU QHS #1 bottle 10/29/18 12/08/18 21:00 Rx Pantoprazole [Protonix TAB] 40 mg PO QDAY #30 tablet 10/29/18 12/09/18 06:00 Rx allopurinoL [Zyloprim] 100 mg PO DAILY #30 tablet 10/29/18 08/07/19 Rx amLODIPine 10 mg PO QDAY #30 tablet 10/29/18 08/07/19 Rx carvediloL [Coreg] 25 mg PO BID #60 tablet 10/29/18 08/07/19 Rx buPROPion 300 mg PO DAILY #14 10/27/19 Unknown Rx buPROPion XL [Wellbutrin XL] 1 tab PO DAILY #14 10/27/19 Unknown Rx ALBUTEROL NEB's [Proventil 0.083% 2.5 mg IH Q3HRT PRN nebu 06/01/20 Unknown Rx NEBS] Brimonidine/Timolol 0.2-0.5% 1 drops OU BID bottle 06/01/20 Unknown Rx [Combigan 0.2-0.5%] Calcium Acetate [Phoslo] 667 mg PO TIDAC capsule 06/01/20 Unknown Rx Methylphenidate [Ritalin] 20 mg PO BID tablet 06/01/20 Unknown Rx Warfarin [Coumadin] 7.5 mg PO QDAY@1700 30 Days #30 06/01/20 Unknown Rx tablet amLODIPine 10 mg PO QDAY tablet 06/01/20 Unknown Rx carvediloL [Coreg] 25 mg PO BID tablet 06/01/20 Unknown Rx Allergies Allergy/AdvReac Type Severity Reaction Status Date / Time No Known Allergies Allergy Verified 05/18/18 18:12 ED Review of Systems ROS: Stated complaint: SOB/SEEN HER 1 WEEK AGO Other details as noted in HPI Comment: All other systems reviewed and negative Constitutional: denies: chills, fever Respiratory: SOB with exertion. denies: cough Cardiovascular: chest pain Musculoskeletal: other (Denies leg pain or swelling) ED Past Medical Hx - Past Medical History Previous Medical History?: Yes Hx Hypertension: Yes Hx Heart Attack/AMI: No Hx Congestive Heart Failure: No Hx Diabetes: No Hx Deep Vein Thrombosis: Yes (RT ARM 10/2018- ON COUMADIN) Hx GERD: Yes Hx Liver Disease: Yes (HCV) Hx Renal Disease: Yes (HD T,,Wednesday) Hx Seizures: No Hx Asthma: No Hx COPD: No Hx HIV: No Additional medical history: depression - Surgical History Past Surgical History?: Yes Hx Cholecystectomy: Yes Additional Surgical History: JAYY graft, Rt Vascath - Social History Smoking Status: Current Every Day Smoker - Medications Home Medications: Home Medications Medication Instructions Recorded Confirmed Last Taken Type Latanoprost 0.005% 2 drops OU QHS #1 bottle 10/29/18 05/30/20 12/08/18 21:00 Rx Pantoprazole [Protonix TAB] 40 mg PO QDAY #30 tablet 10/29/18 05/30/20 12/09/18 06:00 Rx allopurinoL [Zyloprim] 100 mg PO DAILY #30 tablet 10/29/18 05/30/20 08/07/19 Rx amLODIPine 10 mg PO QDAY #30 tablet 10/29/18 05/30/20 08/07/19 Rx carvediloL [Coreg] 25 mg PO BID #60 tablet 10/29/18 05/30/20 08/07/19 Rx Valsartan [Diovan] 160 mg PO DAILY 12/01/18 05/30/20 08/07/19 History Brimonidine/Timolol 0.2-0.5% 1 drop BID 07/10/19 05/30/20 Unknown History [Combigan 0.2-0.5%] Ergocalciferol [Vitamin D2] 1 tab PO 1XW 07/10/19 05/30/20 Unknown History Sodium Bicarbonate 2 tab PO BID 07/10/19 05/30/20 08/07/19 History Tums 500MG CHEW 1 tab PO AC 07/10/19 05/30/20 Unknown History Venlafaxine HCl [Venlafaxine] 100 mg PO BID 07/10/19 05/30/20 Unknown History Vit B Comp No.3/Folic/C/Biotin 1 tab PO DAILY 07/10/19 05/30/20 Unknown History [Jane-Jagruti Rx Tablet] lamoTRIgine [LaMICtal] 1 tab PO DAILY 07/10/19 05/30/20 Unknown History Bimatoprost [Lumigan] 2 drops OU QDAY 10/27/19 05/30/20 Unknown History Calcium Acetate 667 mg PO TID 10/27/19 05/30/20 Unknown History buPROPion 300 mg PO DAILY #14 10/27/19 05/30/20 Unknown Rx buPROPion XL [Wellbutrin XL] 1 tab PO DAILY #14 10/27/19 05/30/20 Unknown Rx ALBUTEROL NEB's [Proventil 0.083% 2.5 mg IH Q3HRT PRN nebu 06/01/20 Unknown Rx NEBS] Brimonidine/Timolol 0.2-0.5% 1 drops OU BID bottle 06/01/20 Unknown Rx [Combigan 0.2-0.5%] Calcium Acetate [Phoslo] 667 mg PO TIDAC capsule 06/01/20 Unknown Rx Methylphenidate [Ritalin] 20 mg PO BID tablet 06/01/20 Unknown Rx Warfarin [Coumadin] 7.5 mg PO QDAY@1700 30 Days #30 06/01/20 Unknown Rx tablet amLODIPine 10 mg PO QDAY tablet 06/01/20 Unknown Rx carvediloL [Coreg] 25 mg PO BID tablet 06/01/20 Unknown Rx ED Physical Exam - General Limitations: No Limitations General appearance: alert, in no apparent distress - Head Head exam: Present: atraumatic, normocephalic - Eye Eye exam: Present: normal appearance, EOMI - ENT ENT exam: Present: mucous membranes moist - Neck Neck exam: Present: normal inspection - Respiratory Respiratory exam: Present: normal lung sounds bilaterally. Absent: respiratory distress - Cardiovascular Cardiovascular Exam: Present: regular rate, normal rhythm - GI/Abdominal GI/Abdominal exam: Present: soft. Absent: distended, tenderness - Extremities Exam Extremities exam: Present: normal inspection - Neurological Exam Neurological exam: Present: alert, oriented X3 - Psychiatric Psychiatric exam: Present: normal affect, normal mood - Skin Skin exam: Present: warm, dry, intact, normal color ED Course Vital Signs 06/17/20 06/17/20 06/17/20 13:28 17:47 20:23 Temperature 98.3 F Pulse Rate 92 H 98 H 100 H Pulse Rate [ Bilateral Throughout] Respiratory 20 16 Rate Respiratory Rate [Bilateral Throughout] Blood Pressure 237/102 Blood Pressure 211/100 234/99 [Right] O2 Sat by Pulse 90 92 Oximetry 01/10/0206/17/20 06/17/20 20:42 23:00 23:15 Temperature Pulse Rate 93 H 88 Pulse Rate [ 99 H Bilateral Throughout] Respiratory Rate Respiratory 22 Rate [Bilateral Throughout] Blood Pressure 246/118 202/90 Blood Pressure [Right] O2 Sat by Pulse Oximetry 06/17/20 23:30 Temperature Pulse Rate 87 Pulse Rate [ Bilateral Throughout] Respiratory Rate Respiratory Rate [Bilateral Throughout] Blood Pressure 200/96 Blood Pressure [Right] O2 Sat by Pulse Oximetry - Consultations Consultation #1: 06/17/20 20:[address] Shell. Will arrange for patient to have dialysis at this time. ED Medical Decision Making - Lab Data Result diagrams: 06/17/20 15:00 06/17/20 15:00 - EKG Data -: EKG Interpreted by Ak EKG shows normal: sinus rhythm, axis, intervals, QRS complexes, ST-T waves Rate: normal - EKG Data Interpretation: no acute changes - Radiology Data Radiology results: report reviewed, image reviewed - Medical Decision Making 59-year-old female presents to ED with dyspnea on exertion over the last 3 to 4 days. Patient has O2 sats of 90% on room air. Patient is not on home O2. Chest x-ray shows evidence of pulmonary edema. Patient has mildly elevated potassium of 5.2. Patient will require emergent hemodialysis. I spoke with Dr. Shell, patient's technician automatic, who will arrange for dialysis. Patient has been given clonidine for her blood pressure. She is currently on 3 L O2. Patient will be admitted to hospitalist, Dr. Stauffer, for further management. - Differential Diagnosis Pulmonary edema, pneumonia, hyperkalemia Critical Care Time: Yes Critical care time in (mins) excluding proc time.: 35 Critical care attestation.: If time is entered above; I have spent that time in minutes in the direct care of this critically ill patient, excluding procedure time. Critical Care Time: 35 min ED Disposition Clinical Impression: Hypoxia, Hypertensive emergency, Acute hyperkalemia, ESRD needing dialysis, Pulmonary edema Disposition: OP ADMIT IP TO THIS HOSP Is pt being admited?: Yes Condition: Stable Time of Disposition: 19:38
[2020-06-17] MEDS ORDERED: cloNIDine 0.2 MG TAB PO ONE ×2 (17:46→20:30)
[2020-06-17] MEDS ORDERED: SODIUM CHLORIDE 0.9% 100 ML IV PRN (20:17)
[2020-06-17] MEDS ORDERED: ALBUTEROL 2.5 MG/3 ML NEBU IH PRN ×2 (20:31→20:35)
[2020-06-17] MEDS ORDERED: IPRATROPIUM 0.02% NEBU 2.5 ML IH PRN ×2 (20:31→20:35)
--- NOTE | 2020-06-17 20:32 | Event Note ---
Date: 06/17/20 Consulted by ED. Patient being admitted for acute hypoxic respiratory failure and accelerated hypertension. STAT HD orders entered. Contacted nurse brick chimney supervisor. Provided name/number of senior windows administrator, Susan, who is animated cartoons painter. Called senior windows administrator. No answer. Left voicemail. Contacted nurse brick chimney supervisor - provided patient information. She attempt to contact senior windows administrator animated cartoons painter.
[2020-06-17] MEDS ORDERED: ALBUTEROL 2.5 MG/3 ML NEBU IH ONE (20:35)
[2020-06-17] MEDS ORDERED: IPRATROPIUM 0.02% NEBU 2.5 ML IH ONE (20:36)
[2020-06-18 03:03] LABS: Hepatitis B Surface Antigen Non-Reactive (Negative); Hepatitis C Virus Antibody Reactive (NonReactive)
--- NOTE | 2020-06-18 03:17 | History and Physical Report ---
History of Present Illness Date of examination: 06/17/20 Date of admission: 06/17/20 20:03 Chief complaint: Increasing shortness of breath for 3 days History of present illness: 59-year-old -[place] female with history of end-stage disease hypertension and gout and asthma comes in for increasing shortness of breath for the last 3 days. Patient states that she has been drinking excessive amount of fluids especially water. No fever or chills. Orthopnea present. Did not miss any dialysis sessions. Patient was dialyzed Wednesday and today is Wednesday. No fever or exposure to coronavirus. No cough. - Past Medical History Previous Medical History?: Yes --Hypertension: Yes --Deep Vein Thrombosis: Yes (RT ARM 10/2018- ON COUMADIN) --GERD: Yes --Liver Disease: Yes (HCV) --Renal Disease: Yes (HD T,,Wednesday) Additional medical history: depression - Surgical History Past Surgical History?: Yes --Cholecystectomy: Yes Additional Surgical History: JAYY graft, Rt Vascath - Social History Smoking Status: Current Every Day Smoker Family history Htn Review of Systems ROS: Stated complaint: SOB/SEEN HER 1 WEEK AGO Other details as noted in HPI Comment: All other systems reviewed and negative Constitutional: denies: chills, fever Respiratory: SOB with exertion. denies: cough Cardiovascular: chest pain Musculoskeletal: other (Denies leg pain or swelling) Medications and Allergies Allergies Allergy/AdvReac Type Severity Reaction Status Date / Time No Known Allergies Allergy Verified 05/18/18 18:12 Home Medications Medication Instructions Recorded Confirmed Last Taken Type Latanoprost 0.005% 2 drops OU QHS #1 bottle 10/29/18 05/30/20 12/08/18 21:00 Rx Pantoprazole [Protonix TAB] 40 mg PO QDAY #30 tablet 10/29/18 05/30/20 12/09/18 06:00 Rx allopurinoL [Zyloprim] 100 mg PO DAILY #30 tablet 10/29/18 05/30/20 08/07/19 Rx amLODIPine 10 mg PO QDAY #30 tablet 10/29/18 05/30/20 08/07/19 Rx carvediloL [Coreg] 25 mg PO BID #60 tablet 10/29/18 05/30/20 08/07/19 Rx Valsartan [Diovan] 160 mg PO DAILY 12/01/18 05/30/20 08/07/19 History Brimonidine/Timolol 0.2-0.5% 1 drop BID 07/10/19 05/30/20 Unknown History [Combigan 0.2-0.5%] Ergocalciferol [Vitamin D2] 1 tab PO 1XW 07/10/19 05/30/20 Unknown History Sodium Bicarbonate 2 tab PO BID 07/10/19 05/30/20 08/07/19 History Tums 500MG CHEW 1 tab PO AC 07/10/19 05/30/20 Unknown History Venlafaxine HCl [Venlafaxine] 100 mg PO BID 07/10/19 05/30/20 Unknown History Vit B Comp No.3/Folic/C/Biotin 1 tab PO DAILY 07/10/19 05/30/20 Unknown History [Jane-Jagruti Rx Tablet] lamoTRIgine [LaMICtal] 1 tab PO DAILY 07/10/19 05/30/20 Unknown History Bimatoprost [Lumigan] 2 drops OU QDAY 10/27/19 05/30/20 Unknown History Calcium Acetate 667 mg PO TID 10/27/19 05/30/20 Unknown History buPROPion 300 mg PO DAILY #14 10/27/19 05/30/20 Unknown Rx buPROPion XL [Wellbutrin XL] 1 tab PO DAILY #14 10/27/19 05/30/20 Unknown Rx ALBUTEROL NEB's [Proventil 0.083% 2.5 mg IH Q3HRT PRN nebu 06/01/20 Unknown Rx NEBS] Brimonidine/Timolol 0.2-0.5% 1 drops OU BID bottle 06/01/20 Unknown Rx [Combigan 0.2-0.5%] Calcium Acetate [Phoslo] 667 mg PO TIDAC capsule 06/01/20 Unknown Rx Methylphenidate [Ritalin] 20 mg PO BID tablet 06/01/20 Unknown Rx Warfarin [Coumadin] 7.5 mg PO QDAY@1700 30 Days #30 06/01/20 Unknown Rx tablet amLODIPine 10 mg PO QDAY tablet 06/01/20 Unknown Rx carvediloL [Coreg] 25 mg PO BID tablet 06/01/20 Unknown Rx Active Meds: Active Medications Sodium Chloride (Nacl 0.9%) 100 mls @ 999 mls/hr IV VANESSA PRN PRN Reason: Hypotension Exam - Constitutional Vitals: Temp Pulse Resp BP Pulse Ox 98.3 F 99 H 18 148/94 98 06/17/20 22:40 06/18/20 01:30 06/17/20 22:40 06/18/20 01:30 06/17/20 22:40 General appearance: Present: no acute distress, well-nourished - EENT Eyes: Present: PERRL ENT: hearing intact, clear oral mucosa - Neck Neck: Present: supple, normal ROM - Respiratory Respiratory effort: normal Respiratory: bilateral: CTA, rales - Cardiovascular Heart rate: 78 Rhythm: regular Heart Sounds: Present: S1 & S2. Absent: rub, click - Extremities Extremities: pulses symmetrical, No edema Peripheral Pulses: within normal limits - Abdominal General gastrointestinal: Present: soft, non-tender, non-distended, normal bowel sounds Female genitourinary: Present: normal - Integumentary Integumentary: Present: clear, warm, dry - Musculoskeletal Musculoskeletal: gait normal, strength equal bilaterally - Psychiatric Psychiatric: appropriate mood/affect, intact judgment & insight - Neurologic Neurologic: CNII-XII intact, moves all extremities HEART Score - HEART Score History: Moderately suspicious Age: 45-65 Troponin: Troponin T 0.027 ng/mL (0.00-0.029) 06/17/20 17:52 Troponin: 1-3x normal limit - Critical Actions Critical Actions: 4-6 pts:12-16.6% risk of adverse cardiac event. 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 (12.2-14.9) H 06/17/20 15:00 INR 2.00 (0.87-1.13) H 06/17/20 15:00 APTT 29.1 Sec. (24.2-36.6) 06/17/20 15:00 D-Dimer 1517 ng/mlDDU (0-234) H 06/17/20 15:00 Sodium 135 mmol/L (137-145) L 06/17/20 15:00 Potassium 5.2 mmol/L (3.6-5.0) H 06/17/20 15:00 Chloride 93.4 mmol/L (98-107) L 06/17/20 15:00 Carbon Dioxide 28 mmol/L (22-30) 06/17/20 15:00 Anion Gap 19 mmol/L 06/17/20 15:00 BUN 33 mg/dL (7-17) H 06/17/20 15:00 Creatinine 7.0 mg/dL (0.6-1.2) H 06/17/20 15:00 Estimated GFR 7 ml/min 06/17/20 15:00 BUN/Creatinine Ratio 5 % 06/17/20 15:00 Glucose 103 mg/dL (65-100) H 06/17/20 15:00 Calcium 9.5 mg/dL (8.4-10.2) 06/17/20 15:00 Total Bilirubin 0.40 mg/dL (0.1-1.2) 06/17/20 15:00 AST 107 units/L (5-40) H 06/17/20 15:00 ALT 30 units/L (7-56) 06/17/20 15:00 Alkaline Phosphatase 53 units/L (35-129) 06/17/20 15:00 Troponin T 0.027 ng/mL (0.00-0.029) 06/17/20 17:52 NT-Pro-B Natriuret Pep 53193 pg/mL (0-900) H 06/17/20 15:00 Total Protein 7.1 g/dL (6.3-8.2) 06/17/20 15:00 Albumin 4.4 g/dL (3.9-5) 06/17/20 15:00 Albumin/Globulin Ratio 1.6 % 06/17/20 15:00 Hepatitis A IgM Ab Non-reactive (NonReactive) 06/18/20 01:08 Hep Bs Antigen Non-reactive (Negative) 06/18/20 01:08 Hep B Core IgM Ab Non-reactive (NonReactive) 06/18/20 01:08 Hepatitis C Antibody Reactive (NonReactive) A 06/18/20 01:08 Short CBC 06/17/20 Range/Units 15:00 WBC 7.2 (4.5-11.0) K/mm3 Hgb 12.8 (10.1-14.3) gm/dl Hct 42.0 (30.3-42.9) % Plt Count 237 (140-440) K/mm3 BMP 06/17/20 15:00 Sodium 135 L Potassium 5.2 H Chloride 93.4 L Carbon Dioxide 28 BUN 33 H Creatinine 7.0 H Glucose 103 H Calcium 9.5 Cardiac Enzymes 06/17/20 06/17/20 Range/Units 15:00 17:52 Troponin T 0.028 0.027 (0.00-0.029) ng/mL Liver Function 06/17/20 Range/Units 15:00 Total Bilirubin 0.40 (0.1-1.2) mg/dL AST 107 H (5-40) units/L ALT 30 (7-56) units/L Alkaline Phosphatase 53 (35-129) units/L Albumin 4.4 (3.9-5) g/dL - Imaging and Cardiology Chest x-ray: report reviewed (Mild CHF) Mc/IV: IV Catheter Type [Right Chest] INT / Saline Lock Assessment and Plan Advance Directives: Yes (Full code) VTE prophylaxis?: Chemical Plan of care discussed with patient/family: Yes - Patient Problems (1) Acute respiratory failure with hypoxia Current Visit: No Status: Acute Plan to address problem: Slightly hypoxic because of the volume overload (2) Pulmonary edema Current Visit: Yes Status: Acute Qualifiers: Chronicity: acute Qualified Code(s): J81.0 - Acute pulmonary edema Plan to address problem: Secondary to excessive fluid intake Meds increase ultrafiltration and removal of fluid (3) Acute hyperkalemia Current Visit: Yes Status: Acute Plan to address problem: Treated with Kayexalate and calcium gluconate (4) ESRD needing dialysis Current Visit: Yes Status: Acute (5) Hypertensive emergency Current Visit: Yes Status: Chronic Plan to address problem: Patient started on IV hydralazine and her home antihypertensives and counseled about compliance (6) Glaucoma Current Visit: Yes Status: Chronic Qualifiers: Glaucoma type: unspecified Plan to address problem: Continue to latanoprost and other eye medicines (7) Gout Current Visit: Yes Status: Inactive Qualifiers: Presence of tophus: without tophus Plan to address problem: Continue allopurinol (8) DVT prophylaxis Current Visit: Yes Status: Acute Plan to address problem: On heparin and GI prophylaxis
[2020-06-18] MEDS ORDERED: ALBUTEROL 2.5 MG/3 ML NEBU IH PRN (03:35)
[2020-06-18] MEDS ORDERED: ACETAMINOPHEN 325 MG TAB PO PRN (03:42)
[2020-06-18] MEDS ORDERED: ONDANSETRON 4 MG/2 ML INJ IV PRN (03:42)
[2020-06-18] MEDS ORDERED: HEPARIN 5,000 UNIT/1 ML VIAL SUB-Q SCH (03:45)
[2020-06-18] MEDS ORDERED: NON-FORMULARY EACH (Calcium Acetate 667 MG) PO SCH (08:00)
[2020-06-18] MEDS: amLODIPine 10 MG TAB PO SCH (09:29)
[2020-06-18] MEDS: carvediloL 25 MG TAB PO SCH ×2 (09:29→23:26)
[2020-06-18] MEDS ORDERED: BIMATOPROST OU SCH (10:00)
[2020-06-18] MEDS ORDERED: VENLAFAXINE HCL 100 MG PO SCH (10:00)
[2020-06-18] MEDS ORDERED: BUPROPION 300 MG PO SCH (10:00)
[2020-06-18] MEDS ORDERED: NON-FORMULARY EACH (Valsartan [Diovan] 80 MG Tablet) PO SCH (10:00)
[2020-06-18] MEDS ORDERED: PANTOPRAZOLE 40 MG TAB PO SCH (10:00)
[2020-06-18] MEDS: CALCIUM ACETATE 667 MG CAP PO SCH ×3 (10:41→16:44)
[2020-06-18 11:17] LABS: Hematocrit 28.3 % (30.3-42.9); Hemoglobin 8.7 gm/dl (10.1-14.3); Mean Corpuscular HGB Conc 31 % (30-34); Mean Corpuscular Volume 76 fl (79-97); Platelet Count 316 K/mm3 (140-440); Red Blood Count 3.74 M/mm3 (3.65-5.03)
--- NOTE | 2020-06-18 11:25 | Consultation ---
History of Present Illness - Reason for Consult Consult date: 06/18/20 end stage renal disease - History of Present Illness This is a 59 year-old woman with ESRD who presents for shortness of breath, hypertensive urgency. Patient usually dialyzes // at [facility]. Last HD 06/15. Denies any recent issues with HD, including dizziness, lightheadedness, cramping, chest pain on HD. Currently, patient denies any issues including dyspnea, edema, access issues, nausea, vomiting, headaches. Was feeling short of breath when came to ED on 06/17, had STAT HD for volume removal and high BPs with systolic >200. No issues with HD last night per patient or nursing. Patient states that she has been drinking excessive amount of fluids especially water. - Past Medical History Previous Medical History?: Yes --Hypertension: Yes --Deep Vein Thrombosis: Yes (RT ARM 10/2018- ON COUMADIN) --GERD: Yes --Liver Disease: Yes (HCV) --Renal Disease: Yes (HD ,,Wednesday) Additional medical history: depression - Surgical History Past Surgical History?: Yes --Cholecystectomy: Yes Additional Surgical History: JAYY graft, Rt Vascath - Social History Smoking Status: Current Every Day Smoker Family history Htn Medications and Allergies Allergies Allergy/AdvReac Type Severity Reaction Status Date / Time No Known Allergies Allergy Verified 05/18/18 18:12 Home Medications Medication Instructions Recorded Confirmed Last Taken Type Latanoprost 0.005% 2 drops OU QHS #1 bottle 10/29/18 05/30/20 12/08/18 21:00 Rx Pantoprazole [Protonix TAB] 40 mg PO QDAY #30 tablet 10/29/18 05/30/20 12/09/18 06:00 Rx allopurinoL [Zyloprim] 100 mg PO DAILY #30 tablet 10/29/18 05/30/20 08/07/19 Rx amLODIPine 10 mg PO QDAY #30 tablet 10/29/18 05/30/20 08/07/19 Rx carvediloL [Coreg] 25 mg PO BID #60 tablet 10/29/18 05/30/20 08/07/19 Rx Valsartan [Diovan] 160 mg PO DAILY 12/01/18 05/30/20 08/07/19 History Brimonidine/Timolol 0.2-0.5% 1 drop BID 07/10/19 05/30/20 Unknown History [Combigan 0.2-0.5%] Ergocalciferol [Vitamin D2] 1 tab PO 1XW 07/10/19 05/30/20 Unknown History Sodium Bicarbonate 2 tab PO BID 07/10/19 05/30/20 08/07/19 History Tums 500MG CHEW 1 tab PO AC 07/10/19 05/30/20 Unknown History Venlafaxine HCl [Venlafaxine] 100 mg PO BID 07/10/19 05/30/20 Unknown History Vit B Comp No.3/Folic/C/Biotin 1 tab PO DAILY 07/10/19 05/30/20 Unknown History [Jane-Jagruti Rx Tablet] lamoTRIgine [LaMICtal] 1 tab PO DAILY 07/10/19 05/30/20 Unknown History Bimatoprost [Lumigan] 2 drops OU QDAY 10/27/19 05/30/20 Unknown History Calcium Acetate 667 mg PO TID 10/27/19 05/30/20 Unknown History buPROPion 300 mg PO DAILY #14 10/27/19 05/30/20 Unknown Rx buPROPion XL [Wellbutrin XL] 1 tab PO DAILY #14 10/27/19 05/30/20 Unknown Rx ALBUTEROL NEB's [Proventil 0.083% 2.5 mg IH Q3HRT PRN nebu 06/01/20 Unknown Rx NEBS] Brimonidine/Timolol 0.2-0.5% 1 drops OU BID bottle 06/01/20 Unknown Rx [Combigan 0.2-0.5%] Calcium Acetate [Phoslo] 667 mg PO TIDAC capsule 06/01/20 Unknown Rx Methylphenidate [Ritalin] 20 mg PO BID tablet 06/01/20 Unknown Rx Warfarin [Coumadin] 7.5 mg PO QDAY@1700 30 Days #30 06/01/20 Unknown Rx tablet amLODIPine 10 mg PO QDAY tablet 06/01/20 Unknown Rx carvediloL [Coreg] 25 mg PO BID tablet 06/01/20 Unknown Rx Active Meds: Active Medications Acetaminophen (Acetaminophen 325 Mg Tab) 650 mg PO Q4H PRN PRN Reason: Pain MILD(1-3)/Fever >100.5/DERAS Albuterol (Albuterol 2.5 Mg/3 Ml Nebu) 2.5 mg IH Q3HRT PRN PRN Reason: Wheezing Allopurinol (Allopurinol 100 Mg Tab) 100 mg PO DAILY [facility] Amlodipine Besylate (Amlodipine 10 Mg Tab) 10 mg PO QDAY [facility] Last Admin: 06/18/20 09:29 Dose: 10 mg Documented by: Brimonidine/Timolol (Combigan 0.2-0.5% Ophth Soln) 1 drops OU BID [facility] Bupropion HCl (Bupropion Xl 150 Mg Tab) 300 mg PO DAILY [facility] Calcium Acetate (Calcium Acetate 667 Mg Cap) 667 mg PO TIDWM [facility] Last Admin: 06/18/20 10:41 Dose: Not Given Documented by: Carvedilol (Carvedilol 25 Mg Tab) 25 mg PO BID [facility] Last Admin: 06/18/20 09:29 Dose: 25 mg Documented by: Sodium Chloride (Nacl 0.9%) 100 mls @ 999 mls/hr IV VANESSA PRN PRN Reason: Hypotension Lamotrigine (Lamotrigine 100 Mg Tab) 100 mg PO DAILY@2000 [facility] Latanoprost (Latanoprost 0.005% Ophth Soln 2.5 Ml) 1 drops OU QHS [facility] Methylphenidate HCl (Methylphenidate 5 Mg Tab) 20 mg PO BID [facility] Ondansetron HCl (Ondansetron 4 Mg/2 Ml Inj) 4 mg IV Q8H PRN PRN Reason: Nausea And Vomiting Oxycodone/Acetaminophen (Oxycodone /Acetaminophen 5-325mg Tab) 1 tab PO Q6H PRN PRN Reason: Pain, Moderate (4-6) Pantoprazole Sodium (Pantoprazole 40 Mg Tab) 40 mg PO QDAY [facility] Sodium Bicarbonate (Sodium Bicarbonate 650 Mg Tab) 1,300 mg PO BID [facility] Sodium Chloride (Sodium Chloride 0.9% 10 Ml Flush Syringe) 10 ml IV BID [facility] Last Admin: 06/18/20 05:04 Dose: 10 ml Documented by: Sodium Chloride (Sodium Chloride 0.9% 10 Ml Flush Syringe) 10 ml IV PRN PRN PRN Reason: LINE FLUSH Valsartan (Valsartan 160mg Tab) 160 mg PO DAILY [facility] Venlafaxine HCl (Venlafaxine 75 Mg Tab) 75 mg PO BID [facility] Venlafaxine HCl (Venlafaxine 25 Mg Tab) 25 mg PO BID [facility] Warfarin Sodium (Warfarin 7.5 Mg Tab) 7.5 mg PO QDAY@1700 [facility]; Protocol Review of Systems All systems: negative (as per HPI) Exam - Vital Signs Vital signs: Vital Signs Temp Pulse Resp BP Pulse Ox 98.3 F 92 H 20 211/100 90 06/17/20 13:28 06/17/20 13:28 06/17/20 13:28 06/17/20 13:28 06/17/20 13:28 - Physical Exam Narrative exam: Constitutional: no acute distress Head: NC/AT Neck: supple Lungs: clear to auscultation CV: RRR, no M/R/G Abdomen: soft, non-tender, bowel sounds present Back: nontender Extremities: 1+ edema, pulses WNL Skin: intact Neuro: no focal deficits, alert and oriented x4 Results - Lab Results 06/18/20 10:50 06/18/20 10:50 Most recent lab results Calcium 9.5 mg/dL (8.4-10.2) 06/17/20 15:00 Assessment and Plan This is a 59 year old woman who presents with volume overload, dyspnea, HTN. # ESRD: s/p STAT HD last night, will continue HD today per // given ongoing HTN, volume needs - daily labs - renally dose meds - avoid nephrotoxins - renal diet # Anemia: last hemoglobin at goal for ESRD, ESAs with HD prn # HTN: UF as tolerated, 4L last night. BP high this AM, improved with antihypertensives, will plan for additional UF 2-3L today as tolerated # Secondary Hyperparathyroidism: continue home binders as needed
[2020-06-18 11:27] LABS: Red Cell Distribution Width 20.8 % (13.2-15.2)
[2020-06-18 11:33] LABS: Calcium 9.2 mg/dL (8.4-10.2)
[2020-06-18] MEDS: allopurinoL 100 MG TAB PO SCH (11:36)
[2020-06-18] MEDS: SODIUM BICARBONATE 650 MG TAB PO SCH ×2 (11:36→23:24)
[2020-06-18] MEDS: PANTOPRAZOLE 40 MG TAB PO SCH (11:36)
[2020-06-18] MEDS: buPROPion XL 150 MG TAB PO SCH (11:37)
[2020-06-18] MEDS: METHYLPHENIDATE 5 MG TAB PO SCH ×2 (11:37→23:24)
[2020-06-18] MEDS: VENLAFAXINE 25 MG TAB PO SCH ×2 (11:37→23:31)
[2020-06-18] MEDS: VENLAFAXINE 75 MG TAB PO SCH ×2 (11:37→23:26)
[2020-06-18] MEDS: VALSARTAN 160MG TAB PO SCH (11:38)
[2020-06-18 12:13] LABS: Basophils % (Auto) 0.8 % (0.0-1.8); Eosinophils % (Auto) 1.8 % (0.0-4.3); Lymphocytes % (Auto) 19.8 % (13.4-35.0); Mean Platelet Volume 7.1 fl (6-12); Monocytes % (Auto) 11.9 % (0.0-7.3)
[2020-06-18 12:14] LABS: Basophils # (Auto) 0.1 K/mm3 (0.0-0.1); Eosinophils # (Auto) 0.1 K/mm3 (0.0-0.4); Lymphocytes # (Auto) 1.7 K/mm3 (1.2-5.4)
[2020-06-18 12:20] LABS: Anisocytosis 1+; Hypochromasia 1+; Total Cells Counted 100
[2020-06-18 12:21] LABS: Platelet Estimate Consistent w Auto; Schistocytes Few
--- NOTE | 2020-06-18 12:50 | Progress Note ---
Assessment and Plan Assessment and plan: Acute respiratory failure with hypoxia Slightly hypoxic because of the volume overload Pulmonary edema Secondary to excessive fluid intake Meds increase ultrafiltration and removal of fluid Acute hyperkalemia Treated with Kayexalate and calcium gluconate ESRD needing dialysis Hypertensive emergency Patient started on IV hydralazine and her home antihypertensives and counseled about compliance Glaucoma Continue to latanoprost and other eye medicines Gout Continue allopurinol DVT prophylaxis On heparin and GI prophylaxis History Interval history: No new issues Hospitalist Physical - Constitutional Vitals: Temp Pulse Resp BP Pulse Ox 98.1 F 78 18 149/71 93 06/18/20 11:48 06/18/20 11:48 06/18/20 11:48 06/18/20 11:48 06/18/20 11:48 General appearance: Present: no acute distress, well-nourished - EENT Eyes: Present: PERRL, EOM intact ENT: hearing intact, clear oral mucosa, dentition normal - Neck Neck: Present: supple, normal ROM - Respiratory Respiratory effort: normal Respiratory: bilateral: CTA - Cardiovascular Rhythm: regular Heart Sounds: Present: S1 & S2. Absent: gallop, rub - Extremities Extremities: no ischemia, No edema, Full ROM - Abdominal General gastrointestinal: soft, non-tender, non-distended, normal bowel sounds - Integumentary Integumentary: Present: clear, warm, dry - Neurologic Neurologic: CNII-XII intact, moves all extremities HEART Score - HEART Score Age: 45-65 Troponin: Troponin T 0.027 ng/mL (0.00-0.029) 06/17/20 17:52 Troponin: 1-3x normal limit - Critical Actions Critical Actions: 4-6 pts:12-16.6% risk of adverse cardiac event. Should be admitted Results - Labs CBC & Chem 7: 06/18/20 10:50 06/18/20 10:50 Labs: Laboratory Last Values WBC 8.5 K/mm3 (4.5-11.0) 06/18/20 10:50 RBC 3.74 M/mm3 (3.65-5.03) 06/18/20 10:50 Hgb 8.7 gm/dl (10.1-14.3) L D 06/18/20 10:50 Hct 28.3 % (30.3-42.9) L D 06/18/20 10:50 MCV 76 fl (79-97) L 06/18/20 10:50 MCH 23 pg (28-32) L 06/18/20 10:50 MCHC 31 % (30-34) 06/18/20 10:50 RDW 20.8 % (13.2-15.2) H 06/18/20 10:50 Plt Count 316 K/mm3 (140-440) 06/18/20 10:50 Lymph % (Auto) 19.8 % (13.4-35.0) 06/18/20 10:50 Willacy % (Auto) 11.9 % (0.0-7.3) H 06/18/20 10:50 Eos % (Auto) 1.8 % (0.0-4.3) 06/18/20 10:50 Baso % (Auto) 0.8 % (0.0-1.8) 06/18/20 10:50 Lymph # (Auto) 1.7 K/mm3 (1.2-5.4) 06/18/20 10:50 Willacy # (Auto) 1.0 K/mm3 (0.0-0.8) H 06/18/20 10:50 Eos # (Auto) 0.1 K/mm3 (0.0-0.4) 06/18/20 10:50 Baso # (Auto) 0.1 K/mm3 (0.0-0.1) 06/18/20 10:50 Add Manual Diff Complete 06/18/20 10:50 Total Counted 100 06/18/20 10:50 Seg Neutrophils % 65.7 % (40.0-70.0) 06/18/20 10:50 Seg Neuts % (Manual) 73.0 % (40.0-70.0) H 06/18/20 10:50 Lymphocytes % (Manual) 18.0 % (13.4-35.0) 06/18/20 10:50 Monocytes % (Manual) 4.0 % (0.0-7.3) 06/18/20 10:50 Eosinophils % (Manual) 2.0 % (0.0-4.3) 06/18/20 10:50 Basophils % (Manual) 2.0 % (0.0-1.8) H 06/18/20 10:50 Metamyelocytes % 1.0 % 06/18/20 10:50 Nucleated RBC % Not Reportable 06/18/20 10:50 Seg Neutrophils # 5.6 K/mm3 (1.8-7.7) 06/18/20 10:50 Seg Neutrophils # Man 6.2 K/mm3 (1.8-7.7) 06/18/20 10:50 Band Neutrophils # 0.0 K/mm3 06/18/20 10:50 Lymphocytes # (Manual) 1.5 K/mm3 (1.2-5.4) 06/18/20 10:50 Abs React Lymphs (Man) 0.0 K/mm3 06/18/20 10:50 Monocytes # (Manual) 0.3 K/mm3 (0.0-0.8) 06/18/20 10:50 Eosinophils # (Manual) 0.2 K/mm3 (0.0-0.4) 06/18/20 10:50 Basophils # (Manual) 0.2 K/mm3 (0.0-0.1) H 06/18/20 10:50 Metamyelocytes # 0.1 K/mm3 06/18/20 10:50 Myelocytes # 0.0 K/mm3 06/18/20 10:50 Promyelocytes # 0.0 K/mm3 06/18/20 10:50 Blast Cells # 0.0 K/mm3 06/18/20 10:50 WBC Morphology Not Reportable 06/18/20 10:50 Hypersegmented Neuts Not Reportable 06/18/20 10:50 Hyposegmented Neuts Not Reportable 06/18/20 10:50 Hypogranular Neuts Not Reportable 06/18/20 10:50 Smudge Cells Not Reportable 06/18/20 10:50 Toxic Granulation Not Reportable 06/18/20 10:50 Toxic Vacuolation Not Reportable 06/18/20 10:50 Dohle Bodies Not Reportable 06/18/20 10:50 Pelger-Huet Anomaly Not Reportable 06/18/20 10:50 Rob Rods Not Reportable 06/18/20 10:50 Platelet Estimate Consistent w auto 06/18/20 10:50 Clumped Platelets Not Reportable 06/18/20 10:50 Plt Clumps, EDTA Not Reportable 06/18/20 10:50 Large Platelets Not Reportable 06/18/20 10:50 Giant Platelets Not Reportable 06/18/20 10:50 Platelet Satelliting Not Reportable 06/18/20 10:50 Plt Morphology Comment Not Reportable 06/18/20 10:50 RBC Morphology Not Reportable 06/18/20 10:50 Dimorphic RBCs Not Reportable 06/18/20 10:50 Polychromasia Not Reportable 06/18/20 10:50 Hypochromasia 1+ 06/18/20 10:50 Poikilocytosis Not Reportable 06/18/20 10:50 Anisocytosis 1+ 06/18/20 10:50 Microcytosis Not Reportable 06/18/20 10:50 Macrocytosis Not Reportable 06/18/20 10:50 Spherocytes Not Reportable 06/18/20 10:50 Pappenheimer Bodies Not Reportable 06/18/20 10:50 Sickle Cells Not Reportable 06/18/20 10:50 Target Cells Not Reportable 06/18/20 10:50 Tear Drop Cells Not Reportable 06/18/20 10:50 Ovalocytes Not Reportable 06/18/20 10:50 Helmet Cells Not Reportable 06/18/20 10:50 [place] Bodies Not Reportable 06/18/20 10:50 [place] Rings Not Reportable 06/18/20 10:50 Kian Cells Not Reportable 06/18/20 10:50 Bite Cells Not Reportable 06/18/20 10:50 Crenated Cell Not Reportable 06/18/20 10:50 Elliptocytes Not Reportable 06/18/20 10:50 Acanthocytes (Spur) Not Reportable 06/18/20 10:50 Rouleaux Not Reportable 06/18/20 10:50 Hemoglobin C Crystals Not Reportable 06/18/20 10:50 Schistocytes Few 06/18/20 10:50 Malaria parasites Not Reportable 06/18/20 10:50 Luis Enrique Bodies Not Reportable 06/18/20 10:50 Hem Pathologist Commnt No 06/18/20 10:50 PT 22.6 Sec. (12.2-14.9) H 06/17/20 15:00 INR 2.00 (0.87-1.13) H 06/17/20 15:00 APTT 29.1 Sec. (24.2-36.6) 06/17/20 15:00 D-Dimer 1517 ng/mlDDU (0-234) H 06/17/20 15:00 Sodium 138 mmol/L (137-145) 06/18/20 10:50 Potassium 4.1 mmol/L (3.6-5.0) D 06/18/20 10:50 Chloride 96.3 mmol/L (98-107) L 06/18/20 10:50 Carbon Dioxide 32 mmol/L (22-30) H 06/18/20 10:50 Anion Gap 14 mmol/L 06/18/20 10:50 BUN 23 mg/dL (7-17) H 06/18/20 10:50 Creatinine 5.3 mg/dL (0.6-1.2) H 06/18/20 10:50 Estimated GFR 10 ml/min 06/18/20 10:50 BUN/Creatinine Ratio 4 % 06/18/20 10:50 Glucose 166 mg/dL (65-100) H 06/18/20 10:50 Hemoglobin A1c < 4.5 % (4-6) 06/18/20 10:50 Calcium 9.2 mg/dL (8.4-10.2) 06/18/20 10:50 Total Bilirubin 0.40 mg/dL (0.1-1.2) 06/18/20 10:50 AST 16 units/L (5-40) 06/18/20 10:50 ALT 16 units/L (7-56) 06/18/20 10:50 Alkaline Phosphatase 50 units/L (35-129) 06/18/20 10:50 Troponin T 0.027 ng/mL (0.00-0.029) 06/17/20 17:52 NT-Pro-B Natriuret Pep 37365 pg/mL (0-900) H 06/17/20 15:00 Total Protein 7.2 g/dL (6.3-8.2) 06/18/20 10:50 Albumin 4.0 g/dL (3.9-5) 06/18/20 10:50 Albumin/Globulin Ratio 1.3 % 06/18/20 10:50 Hepatitis A IgM Ab Non-reactive (NonReactive) 06/18/20 01:08 Hep Bs Antigen Non-reactive (Negative) 06/18/20 01:08 Hep B Core IgM Ab Non-reactive (NonReactive) 06/18/20 01:08 Hepatitis C Antibody Reactive (NonReactive) A 06/18/20 01:08 Mc/IV: Voiding Method Toilet IV Catheter Type [Right Chest] INT / Saline Lock Active Medications - Current Medications Current Medications: Generic Name Dose Route Start Last Admin Trade Name Freq PRN Reason Stop Dose Admin Acetaminophen 650 mg 06/18/20 03:42 Acetaminophen 325 Mg Tab PO Q4H PRN Pain MILD(1-3)/Fever >100.5/DERAS Albuterol 2.5 mg 06/18/20 03:35 Albuterol 2.5 Mg/3 Ml Nebu IH Q3HRT PRN Wheezing Allopurinol 100 mg 06/18/20 10:00 06/18/20 11:36 Allopurinol 100 Mg Tab PO 100 mg DAILY [facility] Administration Amlodipine Besylate 10 mg 06/18/20 10:00 06/18/20 09:29 Amlodipine 10 Mg Tab PO 10 mg QDAY [facility] Administration Brimonidine/Timolol 1 drops 06/18/20 10:00 Combigan 0.2-0.5% Ophth Soln OU BID [place] Bupropion HCl 300 mg 06/18/20 10:00 06/18/20 11:37 Bupropion Xl 150 Mg Tab PO 300 mg DAILY [facility] Administration Calcium Acetate 667 mg 06/18/20 08:00 06/18/20 11:36 Calcium Acetate 667 Mg Cap PO 667 mg TIDWM [facility] Administration Carvedilol 25 mg 06/18/20 10:00 06/18/20 09:29 Carvedilol 25 Mg Tab PO 25 mg BID [place] Administration Sodium Chloride 100 mls @ 999 mls/hr 06/17/20 20:17 Nacl 0.9% IV VANESSA PRN Hypotension Lamotrigine 100 mg 06/18/20 20:00 Lamotrigine 100 Mg Tab PO DAILY@2000 [facility] Latanoprost 1 drops 06/18/20 22:00 Latanoprost 0.005% Ophth Soln 2.5 Ml OU QHS [facility] Methylphenidate HCl 20 mg 06/18/20 10:00 06/18/20 11:37 Methylphenidate 5 Mg Tab PO 20 mg BID [place] Administration Ondansetron HCl 4 mg 06/18/20 03:42 Ondansetron 4 Mg/2 Ml Inj IV Q8H PRN Nausea And Vomiting Oxycodone/Acetaminophen 1 tab 06/18/20 03:42 Oxycodone /Acetaminophen 5-325mg Tab PO Q6H PRN Pain, Moderate (4-6) Pantoprazole Sodium 40 mg 06/18/20 12:00 06/18/20 11:36 Pantoprazole 40 Mg Tab PO 40 mg QDAC [facility] Administration Sodium Bicarbonate 1,300 mg 06/18/20 10:00 06/18/20 11:36 Sodium Bicarbonate 650 Mg Tab PO 1,300 mg BID [place] Administration Sodium Chloride 10 ml 06/18/20 04:00 06/18/20 11:38 Sodium Chloride 0.9% 10 Ml Flush Syringe IV 10 ml BID [place] Administration Sodium Chloride 10 ml 06/18/20 03:42 Sodium Chloride 0.9% 10 Ml Flush Syringe IV PRN PRN LINE FLUSH Valsartan 160 mg 06/18/20 10:00 06/18/20 11:38 Valsartan 160mg Tab PO 160 mg DAILY [facility] Administration Venlafaxine HCl 75 mg 06/18/20 10:00 06/18/20 11:37 Venlafaxine 75 Mg Tab PO 75 mg BID [place] Administration Venlafaxine HCl 25 mg 06/18/20 10:00 06/18/20 11:37 Venlafaxine 25 Mg Tab PO 25 mg BID [place] Administration Warfarin Sodium 7.5 mg 06/18/20 17:00 Warfarin 7.5 Mg Tab PO QDAY@1700 [facility] Protocol
[2020-06-18] MEDS ORDERED: WARFARIN 7.5 MG TAB PO SCH (17:00)
[2020-06-18] MEDS: oxyCODONE /ACETAMINOPHEN 5-325MG TAB PO PRN ×2 (18:05→23:40)
[2020-06-18] MEDS ORDERED: lamoTRIgine 100 MG TAB PO SCH (20:00)
[2020-06-18] MEDS ORDERED: LATANOPROST 0.005% OPHTH SOLN 2.5 ML OU SCH ×2 (22:00)
[2020-06-18] MEDS: COMBIGAN 0.2-0.5% OPHTH SOLN OU SCH (23:36)
[2020-06-19 08:14] VITALS: BP 153/73
[2020-06-19] MEDS: PANTOPRAZOLE 40 MG TAB PO SCH (08:35)
[2020-06-19] MEDS: CALCIUM ACETATE 667 MG CAP PO SCH (08:35)
[2020-06-19] MEDS: oxyCODONE /ACETAMINOPHEN 5-325MG TAB PO PRN (08:36)
--- NOTE | 2020-06-19 08:55 | Discharge Summary ---
Providers - Providers Date of Admission: 06/17/20 20:03 Date of discharge: 06/19/20 Attending physician: KIKA BENZ 06/17/20 20:03 Consult to Physician [CONS] Stat Comment: Consulting Provider: GIO KRAUS Physician Instructions: Reason For Exam: volume overload Primary care physician: СВЕТЛАНА PRO MD Hospitalization Reason for admission: missed HD Condition: Stable Hospital course: This is a 59 year-old woman with ESRD who presented through the emergency department with complaints of shortness of breath, hypertensive urgency. Patient usually dialyzes // at [facility]. Last HD 06/15. Denied any recent issues with HD, including dizziness, lightheadedness, cramping, chest pain on HD. Shortly after admission, patient denied any issues including dyspnea, edema, access issues, nausea, vomiting, headaches. The patient only complained of short of breath when came to ED on 06/17. The patient was admitted with diagnosis of mild volume overload, medical noncompliance and hypertensive emergency. The patient was not found to be hypoxic with O2 saturation lowest at 90%. STAT HD for volume removal and high BPs with systolic >200. No issues with HD during the hospital stay per patient or nursing. Patient states that she has been drinking excessive amount of fluids especially water which she has attributed to her volume overload. The patient was seen by nephrology in consultation and patient remained stable. Blood pressure stabilized with antihypertensive medications. Patient is felt to receive maximal hospital benefit and will be discharged home. Dedicated discharge time 35 minutes. Disposition: - TO HOME OR SELFCARE Time spent for discharge: 35 - Discharge Diagnoses (1) Acute hyperkalemia Status: Acute Comment: Resolved after hemodialysis. (2) ESRD needing dialysis Status: Acute Comment: Status post dialysis yesterday. (3) Pulmonary edema Status: Acute Qualifiers: Chronicity: acute Qualified Code(s): J81.0 - Acute pulmonary edema (4) Hypertensive emergency Status: Chronic Comment: Much improved. Will increase valsartan to 320 mg. (5) ESRD (end stage renal disease) Status: Acute (6) HTN (hypertension) Status: Acute Core Measure Documentation - Palliative Care Palliative Care/ Comfort Measures: Not Applicable - Core Measures Any of the following diagnoses?: none Exam - Constitutional Vitals: Temp Pulse Resp BP Pulse Ox 97.5 F L 90 20 153/73 94 01/06/21 07:35 06/19/20 07:35 06/19/20 07:35 06/19/20 07:35 06/19/20 07:35 General appearance: Present: no acute distress, well-nourished - EENT Eyes: Present: PERRL ENT: hearing intact, clear oral mucosa - Neck Neck: Present: supple, normal ROM - Respiratory Respiratory effort: normal Respiratory: bilateral: CTA - Cardiovascular Heart Sounds: Present: S1 & S2. Absent: rub, click - Extremities Extremities: pulses symmetrical, No edema Peripheral Pulses: within normal limits - Abdominal General gastrointestinal: Present: soft, non-tender, non-distended, normal bowel sounds Female genitourinary: Present: normal - Integumentary Integumentary: Present: clear, warm, dry - Musculoskeletal Musculoskeletal: gait normal, strength equal bilaterally - Psychiatric Psychiatric: appropriate mood/affect, intact judgment & insight - Neurologic Neurologic: CNII-XII intact, moves all extremities Plan Activity: advance as tolerated Weight Bearing Status: Weight Bear as Tolerated Diet: renal Special Instructions: restrict fluid intake to (1L) Follow up with: СВЕТЛАНА PRO MD [Primary Care Provider] - 3-5 Days Forms: Warfarin Discharge Instruction Prescriptions: amLODIPine 10 mg PO QDAY #30 tablet buPROPion 300 mg PO DAILY #14 Calcium Acetate 667 mg PO TID #90 carvediloL [Coreg] 25 mg PO BID #60 tablet Warfarin [Coumadin] 7.5 mg PO QDAY@1700 30 Days #30 tablet Valsartan [Diovan] 160 mg PO DAILY #30 lamoTRIgine [LaMICtal] 1 tab PO DAILY #30 Latanoprost 0.005% 2 drops OU QHS #1 bottle Pantoprazole [Protonix TAB] 40 mg PO QDAY #30 tablet Sodium Bicarbonate 2 tab PO BID #60
[2020-06-19] MEDS: SODIUM BICARBONATE 650 MG TAB PO SCH (09:40)
[2020-06-19] MEDS: buPROPion XL 150 MG TAB PO SCH (09:40)
[2020-06-19] MEDS: VALSARTAN 160MG TAB PO SCH (09:40)
[2020-06-19] MEDS: carvediloL 25 MG TAB PO SCH (09:41)
[2020-06-19] MEDS: amLODIPine 10 MG TAB PO SCH (09:41)
[2020-06-19] MEDS: VENLAFAXINE 75 MG TAB PO SCH (09:41)
[2020-06-19] MEDS: allopurinoL 100 MG TAB PO SCH (09:42)
[2020-06-19] MEDS: VENLAFAXINE 25 MG TAB PO SCH (09:43)
[2020-06-19] MEDS: METHYLPHENIDATE 5 MG TAB PO SCH (10:08)
[2020-06-19] MEDS: COMBIGAN 0.2-0.5% OPHTH SOLN OU SCH (10:09)
[2020-06-19 10:10] LABS: INR 1.96 (0.87-1.13)
[2020-06-19 10:21] LABS: Calcium 9.8 mg/dL (8.4-10.2)
--- NOTE | 2020-06-19 14:05 | Progress Note ---
Assessment and Plan This is a 59 year old woman who presents with volume overload, dyspnea, HTN. # ESRD: s/p STAT HD 06/17 evening, had HD / per // given ongoing HTN, volume needs. Stable today, no need for additional HD - daily labs - renally dose meds - avoid nephrotoxins - renal diet # Anemia: last hemoglobin at goal for ESRD, ESAs with HD prn # HTN: UF as tolerated, BP much improved # Secondary Hyperparathyroidism: continue home binders as needed Subjective Date of service: 06/19/20 Interval history: No acute issues this AM, had HD and tolerated well yesterday. Notes that dyspnea, swelling have improved Objective - Exam Narrative Exam: Constitutional: no acute distress Head: NC/AT Neck: supple Lungs: clear to auscultation CV: RRR, no M/R/G Abdomen: soft, non-tender, bowel sounds present Back: nontender Extremities: no edema, pulses WNL Skin: intact Neuro: no focal deficits, alert and oriented x4 - Vital Signs Vital signs: Vital Signs - 12hr 06/19/20 06/19/20 06/19/20 03:18 07:35 09:40 Temperature 98.3 F 97.5 F L Pulse Rate 84 90 90 Respiratory 16 20 Rate Blood Pressure 128/68 153/73 153/73 O2 Sat by Pulse 93 94 Oximetry 06/19/20 09:41 Temperature Pulse Rate 90 Respiratory Rate Blood Pressure 153/73 O2 Sat by Pulse Oximetry - Lab 06/18/20 10:50 06/19/20 08:37 Most recent lab results Calcium 9.8 mg/dL (8.4-10.2) 06/19/20 08:37 Medications & Allergies - Medications Allergies/Adverse Reactions: Allergies No Known Allergies Allergy (Verified 05/18/18 18:12) Home Medications: Home Medications Medication Instructions Recorded Confirmed Last Taken Type allopurinoL [Zyloprim] 100 mg PO DAILY #30 tablet 10/29/18 05/30/20 08/07/19 Rx Brimonidine/Timolol 0.2-0.5% 1 drop BID 07/10/19 05/30/20 Unknown History [Combigan 0.2-0.5%] Ergocalciferol [Vitamin D2] 1 tab PO 1XW 07/10/19 05/30/20 Unknown History Tums 500MG CHEW 1 tab PO AC 07/10/19 05/30/20 Unknown History Venlafaxine HCl [Venlafaxine] 100 mg PO BID 07/10/19 05/30/20 Unknown History Vit B Comp No.3/Folic/C/Biotin 1 tab PO DAILY 07/10/19 05/30/20 Unknown History [Jane-Jagruti Rx Tablet] Bimatoprost [Lumigan] 2 drops OU QDAY 10/27/19 05/30/20 Unknown History buPROPion XL [Wellbutrin XL] 1 tab PO DAILY #14 10/27/19 05/30/20 Unknown Rx ALBUTEROL NEB's [Proventil 0.083% 2.5 mg IH Q3HRT PRN nebu 06/01/20 Unknown Rx NEBS] Brimonidine/Timolol 0.2-0.5% 1 drops OU BID bottle 06/01/20 Unknown Rx [Combigan 0.2-0.5%] Calcium Acetate [Phoslo] 667 mg PO TIDAC capsule 06/01/20 Unknown Rx Methylphenidate [Ritalin] 20 mg PO BID tablet 06/01/20 Unknown Rx amLODIPine 10 mg PO QDAY tablet 06/01/20 Unknown Rx carvediloL [Coreg] 25 mg PO BID tablet 06/01/20 Unknown Rx Calcium Acetate 667 mg PO TID #90 06/19/20 Unknown Rx Latanoprost 0.005% 2 drops OU QHS #1 bottle 06/19/20 Unknown Rx Pantoprazole [Protonix TAB] 40 mg PO QDAY #30 tablet 06/19/20 Unknown Rx Sodium Bicarbonate 2 tab PO BID #60 06/19/20 Unknown Rx Valsartan [Diovan] 160 mg PO DAILY #30 06/19/20 Unknown Rx Warfarin [Coumadin] 7.5 mg PO QDAY@1700 30 Days #30 06/19/20 Unknown Rx tablet amLODIPine 10 mg PO QDAY #30 tablet 06/19/20 Unknown Rx buPROPion 300 mg PO DAILY #14 06/19/20 Unknown Rx carvediloL [Coreg] 25 mg PO BID #60 tablet 06/19/20 Unknown Rx lamoTRIgine [LaMICtal] 1 tab PO DAILY #30 06/19/20 Unknown Rx
== END 2020-06-19 11:30 | disposition home or self-care (01) ==
LOC: ED 13:00 → 4A 20:03
PROVIDERS: ADMIT Internal Medicine; ATTEND Hospitalist
DX: J96.01 Acute respiratory failure with hypoxia (principal); I16.1 Hypertensive emergency; N18.6 End stage renal disease; J81.1 Chronic pulmonary edema; E87.5 Hyperkalemia; M10.9 Gout, unspecified; H40.9 Unspecified glaucoma; N25.81 Secondary hyperparathyroidism of renal origin; D64.9 Anemia, unspecified; K76.9 Liver disease, unspecified; F17.200 Nicotine dependence, unspecified, uncomplicated; F32.9 Major depressive disorder, single episode, unspecified; Z99.2 Dependence on renal dialysis; Z90.49 Acquired absence of other specified parts of digestive tract; Z98.890 Other specified postprocedural states; Z86.718 Personal history of other venous thrombosis and embolism; Z79.01 Long term (current) use of anticoagulants
CPT/HCPCS: 36415; 71046; 80048; 80053; 80074; 83036; 83880; 84484; 85025; 85379; 85610; 85730; 87641; 93005; 94644; 96372; 99291; G0257; G0378; J1644; 85007